=== PATIENT | male | born 1950 | race Caucasian/White ===

== ENCOUNTER 2019-05-17 16:15 | Emergency (ER) | payer MEDICARE, OTHER, SELFPAY ==
--- NOTE | ~2019-05-17 | CT_ITS ---
EXAMINATION: CT cervical spine wo con DATE: 05/17/2019 17:01 INDICATION: Neck pain after fall. TECHNIQUE: Computed tomography (CT) of the cervical spine was performed without intravenous contrast. The dose-length product was 476 mGy-cm. Automated exposure control and iterative reconstruction technique were employed. COMPARISON: None FINDINGS: There is fusion at C4-C6. There is degenerative anterolisthesis at C2-3 and C3-4. No acute fracture or traumatic malalignment. There is subcutaneous emphysema of the right chest wall extending into the neck. Odontoid process within normal limits. There is mild multilevel facet and uncinate hy pertrophy. There is a small right apical pneumothorax. There is a lytic lesion of the right occipital skull. Consider metastatic disease and myeloma. There is a right third rib fracture at the costovert ebral junction. IMPRESSION: 1. Right third rib fracture at the costovertebral junction. 2: Lytic lesion right occipital skull, suspicious for metastatic disease versus myeloma. 3: Moderate cervical spondylosis. 4: Small right apical pneumothorax. 5: Subcutaneous emphysema of the right chest wall extending into the neck. Reviewed, dictated and finalized at location A. UCTOR ORCHESTRA IMPRESSION: 1. Right third rib fracture at the costovertebral junction. 2: Lytic lesion right occipital skull, suspicious for metastatic disease versu s myeloma. 3: Moderate cervical spondylosis. 4: Small right apical pneumothorax. 5: Subcutaneous emphysema of the right chest wall extending into the neck.
--- NOTE | ~2019-05-17 | CT_ITS ---
EXAMINATION: CT chst ab pel sukhdeep gutierrez w DATE: 05/17/2019 17:02 INDICATION: Status post fall from ladder. TECHNIQUE: Computed tomography (CT) of the chest, abdomen, pelvis, thoracic and lumbar spine was perf ormed with 100 cc Omnipaque 350 intravenous contrast. The dose-length product was 892.89 mGy-cm. COMPARISON: CT dated 12/20/2018 FINDINGS: There is extensive subcutaneous emphysema of the right chest wall. There is a small right p neumothorax. There is atherosclerosis of the aorta without evidence for aneurysm or dissection. No th oracic lymphadenopathy. There is dependent atelectasis of the lower lobes. There are acute right seco nd and third rib fractures. Possible nondisplaced right fourth rib fracture. There is mild thoracic a nd lumbar spondylosis. There are acute displaced fractures of the right transverse processes of L1-L5 with probable associated hematoma involving the psoas muscle. There is diastases of the right sacroi liac joint. There are degenerative changes of the hips. The liver, spleen, pancreas, adrenal glands and kidneys are unremarkable. There are gallstones. Nonob structive bowel gas pattern. Enlarged prostate gland. No free air or free fluid. There is moderate mu ltilevel facet hypertrophy of the lumbar spine there is disc narrowing at all lumbar levels. No acute abnormality of the thoracic or lumbar spine.. IMPRESSION: 1. Acute right second and third rib fractures. Possible nondisplaced right fourth rib fracture. 2: Small right pneumothorax. Extensive subcutaneous emphysema right chest wall extending into the ne ck. 3: Acute displaced fractures of the right transverse processes of L1-L5 with associated enlargement/a symmetry of the right psoas muscle, likely attributable to intramuscular hematoma. 4: Diastases of the right sacroiliac joint. Reviewed, dictated and finalized at location A. AT SYSTEMS ENGINEER IMPRESSION: 1. Acute right second and third rib fractures. Possible nondisplaced right four th rib fracture. 2: Small right pneumothorax. Extensive subcutaneous emphysema right chest wall extending into the neck. 3: Acute displaced fractures of the right transverse processes of L1-L5 with as sociated enlargement/asymmetry of the right psoas muscle, likely attributable t o intramuscular hematoma. 4: Diastases of the right sacroiliac joint.
--- NOTE | ~2019-05-17 | CT_ITS ---
EXAMINATION: CT brain wo con DATE: 05/17/2019 17:00 INDICATION: Status post fall. Head injury. TECHNIQUE: Computed tomography (CT) of the head was performed without intravenous contrast. The dose- length product was 681.00 mGy-cm. The mA was adjusted according to patient size. Iterative reconstruc tion technique was employed. COMPARISON: CT dated 11/21/2017 FINDINGS: No acute intracranial hemorrhage, infarction, mass or mass effect. There are scattered mild periventricular and subcortical white matter changes, most likely related to small vessel ischemic d isease (microangiopathy). No depressed skull fractures. Paranasal sinuses and mastoids are unremarkab le. Midline sagittal images demonstrate a normal corpus callosum and craniovertebral junction. IMPRESSION: 1. No acute intracranial abnormality. Reviewed, dictated and finalized at location A. TICS FABRICATOR AND ASSEMBLER
--- NOTE | ~2019-05-17 | XR_ITS ---
XR chest 1V portable 05/17/2019 16:37 Indication: Right-sided chest pain after fall 2010 feet. Procedure: AP portable chest Comparison: 11/21/2017 Findings: There is a right second rib fracture. Heart size normal for technique. No focal air space d isease, pulmonary edema, pleural effusion or suspected pneumothorax. There is subcutaneous emphysema of the right chest wall. Impression: 1: Right second rib fracture with subcutaneous emphysema of the right chest. Reviewed, dictated and finalized at location A. USEMENT RIDE INSPECTOR Impression: 1: Right second rib fracture with subcutaneous emphysema of the right chest.
[2019-05-17 16:14] VITALS: BP 138/85; PULSE 88; RESP 24; TEMP 36.8; O2SAT 100
--- NOTE | 2019-05-17 16:16 | ED.FALL ---
HPI - Fall General Chief Complaint: Fall Stated Complaint: fall from ladder Time Seen by Provider: 05/17/19 16:19 Source: patient and EMS Mode of arrival: EMS Limitations: no limitations History of Present Illness HPI Narrative: A 68 y/o male pt presents to the ED, via EMS, with c/o a fall from a 10ft ladder. Pt states that he was on a ladder trimming his tree when a tree limb fell down and knocked him off the ladder, hitting his head, and landing on his back. EMS states that the pt landed on muddy grass. Pt is complaining of rt sided lower back pain and SOB in the ED, but denies any neck pain, ABD pain, or numbness or tingling to his extremities. MD complaint: fall Onset (ago): hour(s) Fall from: from height (distance) (10 ft ladder) Fall witnessed: yes, by family Place fall occurred: home Context: other (tree limb fell knocking him off the ladder) Location of injury: back (rt sided lower back) Associated symptoms (after fall): shortness of breath and other (rt sided lower back pain) Related Data Home Medications Medication Instructions Recorded Confirmed amlodipine 10 mg tablet 10 mg PO DAILY 03/28/19 clonazepam 1 mg tablet 1 mg PO DAILY 03/28/19 Allergies Allergy/AdvReac Type Severity Reaction Status Date / Time No Known Allergies Allergy Unknown Verified 05/17/19 16:22 No Known Allergies Allergy Unknown Unknown Uncoded 05/17/19 16:22 Review of Systems Review of Systems: All systems reviewed & are unremarkable except as noted in HPI and below Respiratory: Respiratory: Reports dyspnea Gastrointestinal: Gastrointestinal: Denies abdominal pain Musculoskeletal: Musculoskeletal: Reports back pain (rt sided lower), Denies neck pain, Denies numbness and Denies tingling PMFSH Past Medical History Medical History Hypertension Inflammatory arthritis Insomnia Kidney stones Left hip pain Low testosterone in male Surgical History Surgical History History of back surgery Social History Social History (Updated 05/17/19 @ 17:58 by [employer] [facility] [employer]) Smoking status: Never smoker Second hand tobacco smoke exposure: No Alcohol intake: current Substance use: current Substance use type: painkillers and prescription drug Living arrangements: with family Gender identity (if verbalized by the patient): Male Exam Const: General: cooperative, no acute distress and alert Nutritional Appearance: well nourished Orientation/consciousness: patient oriented x3 Limitations: no limitations HENMT: Mouth: Yes lip normal and Yes moist mucous membranes Chest: Chest palpation & inspection: tenderness rib right Resp: Effort & Inspection: normal respiratory effort Auscultation: crackles on the right at the base Cardio: Rate: regular rate Rhythm: regular rhythm GI: GI Palp: Yes Soft to palpation and No Tenderness to palpation present (GI) Auscultation: normal bowel sounds Back/Spine/Pelvis: Back: CVA tenderness (rt side) Skin: General skin exam: normal color Neuro: General: patient oriented x3 and deep tendon reflexes 2+ bilaterally Cognition (Neuro): normal cognition Speech: normal speech Extrem: General: normal to inspection, full ROM and no clubbing, cyanosis or edema Psych: Mental Status: mental status grossly normal Affect: normal affect Attitude: cooperative Course Course Emergency Course: Patient presents with fall from significant height while trimming a tree. Patient with 2, possibly 3 rib fractures on the right side with subcutaneous emphysema and very small pneumothorax. Patient's pneumothorax is too small to warrant placement of chest tube at this time. Patient is hemodynamically stable. Patient also presents with multiple lumbar transverse process fractures and possible psoas hematoma. No other intrathoracic or intra-abdominal pathology noted. Patient given IV acetam
[2019-05-17 16:51] LABS: Blood Urea Nitrogen 22 mg/dL (8-26); Estimated CRCL calculation 44 ml/min; Estimated Glomerular Filt Rate 43
[2019-05-17 17:43] VITALS: BP 123/73; PULSE 94; RESP 20; TEMP 36.7; O2SAT 99
[2019-05-17] MEDS: HYDROMORPHONE HCL 1 MG/ML INJ IV PUSH (18:33)
[2019-05-17 18:39] VITALS: BP 134/80; PULSE 80; RESP 20; TEMP 36.8; O2SAT 98
== END 2019-05-17 18:41 | disposition short-term general hospital (02) ==
PROVIDERS: Emergency Provider Emergency Medicine; PCP Family Medicine
DX: S22.41XA Multiple fractures of ribs, right side, initial encounter for closed fracture (principal); S27.0XXA Traumatic pneumothorax, initial encounter; T79.7XXA Traumatic subcutaneous emphysema, initial encounter; S32.018A Other fracture of first lumbar vertebra, initial encounter for closed fracture; S32.028A Other fracture of second lumbar vertebra, initial encounter for closed fracture; S32.038A Other fracture of third lumbar vertebra, initial encounter for closed fracture; S32.048A Other fracture of fourth lumbar vertebra, initial encounter for closed fracture; S32.058A Other fracture of fifth lumbar vertebra, initial encounter for closed fracture; T14.8XXA Other injury of unspecified body region, initial encounter; I10 Essential (primary) hypertension; Z87.442 Personal history of urinary calculi; M13.80 Other specified arthritis, unspecified site; M89.9 Disorder of bone, unspecified; W11.XXXA Fall on and from ladder, initial encounter; Y93.H2 Activity, gardening and landscaping
CPT/HCPCS: 70450; 71045; 71260; 72125; 72129; 72132; 74177; 96365; 96375; 96376; 99291; J0131; J1170; J3010; Q9967

== ENCOUNTER 2019-05-22 15:55 | IRF | payer MEDICARE, OTHER, SELFPAY ==
[2019-05-22 15:55] VITALS: BP 161/70; PULSE 84; RESP 18; TEMP 36.9; O2SAT 99; BMI 25.8
--- NOTE | 2019-05-22 16:22 | ADMGEN ---
This patient, Paul Dutton, was admitted to [facility] Room 220-02. Patient/family oriented to hospital policies and general routines including ID bracelet, bed and alarms, visiting hours, pain management, procedures, bathroom and other care routines, personal items, smoking policy, room service/diet, and visiting hours. Valuables list has been completed. Information on how to activate the Rapid Response Team has been discussed. Patient/Family are encouraged to report perceived risks to care and to ask questions if they do not understand what they are told or what they should do.
[2019-05-22] MEDS: DOXAZOSIN MESYLATE 4 MG TABLET 8 MG PO (20:03)
[2019-05-22] MEDS: SENNOSIDES 8.6 MG TABLET 17.2 MG PO (20:03)
[2019-05-22] MEDS: TRAZODONE HCL 50 MG TABLET PO (20:04)
[2019-05-22 22:00] VITALS: BP 172/46; PULSE 80; RESP 24; TEMP 37.6; O2SAT 100
[2019-05-22] MEDS: CYCLOBENZAPRINE HCL 5 MG TABLET PO (23:54)
[2019-05-23 04:51] LABS: Basophils Absolute Auto 0.1 K/mm3 (0.0-0.1); Basophils Percent Auto 0.7 % (0.2-1.2); Eosinophils Absolute Auto 0.3 K/mm3 (0-0.3); Eosinophils Percent Auto 2.4 % (0-4.4); Hematocrit 31.8 % (42.0-52.0); Hemoglobin 10.5 g/dL (14.0-18.0); Immature Granulocyte Absolute 0.53 K/mm3 (0.00-0.031); Immature Granulocyte Percent A 4.9 % (0-0.5); Lymphocytes Percent Auto 12.1 % (18.3-44.2); Mean Corpuscular Hemoglobin 29.1 pg (26-34); Mean Corpuscular Volume 88.1 fl (80-100); Mean Platelet Volume 10.3 fl (7.4-10.4); Monocytes Percent Auto 9.5 % (2.6-8.5); Neutrophils Absolute Auto 7.5 K/mm3 (1.3-6.7); Neutrophils Percent Auto 70.4 % (45.5-73.1); Platelet Count Result 359 k/mm3 (150-375); Red Blood Count 3.61 M/mm3 (4.6-6.20); Red Cell Distribution Width 12.3 % (11.5-14.5); White Blood Count 10.7 K/mm3 (4.5-10.0)
[2019-05-23 05:09] LABS: Blood Urea Nitrogen 21 mg/dL (9-20); Calcium 7.9 mg/dL (8.4-10.2); Carbon Dioxide 27 mmol/L (22-30); Chloride 101 mmol/L (98-107); Estimated CRCL calculation 70 ml/min; Estimated Glomerular Filt Rate > 60; Glucose 113 mg/dL (75-110); Potassium 3.6 mmol/L (3.4-5.0); Sodium 137 mmol/L (137-145)
[2019-05-23 06:00] VITALS: BP 151/64; PULSE 73; RESP 20; TEMP 37.4; O2SAT 96
[2019-05-23] MEDS: POTASSIUM/PHOSPHORUS/SODIUM 1.5 GM PACKET 2 PACKET PO ×3 (08:42→17:52)
[2019-05-23] MEDS: AMLODIPINE BESYLATE 5 MG TABLET 10 MG PO (08:42)
[2019-05-23] MEDS: LIDOCAINE 5% PATCH 2 PATCH TOPICAL (08:42)
[2019-05-23] MEDS: ENOXAPARIN 40 MG/0.4 ML SYRINGE SUB-Q (08:42)
[2019-05-23] MEDS: SENNOSIDES 8.6 MG TABLET 17.2 MG PO ×2 (08:43→20:05)
[2019-05-23 09:26] VITALS: BMI 25.8
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
[2019-05-23] MEDS: CYCLOBENZAPRINE HCL 5 MG TABLET PO (10:29)
[2019-05-23 14:00] VITALS: BP 153/83; PULSE 94; RESP 20; TEMP 37.4; O2SAT 97
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
[2019-05-23] MEDS: DOXAZOSIN MESYLATE 4 MG TABLET 8 MG PO (20:05)
[2019-05-23] MEDS: CLONAZEPAM 0.5 MG TAB 1 MG PO (20:06)
[2019-05-23] MEDS: TRAZODONE HCL 50 MG TABLET PO (20:06)
[2019-05-23 21:33] VITALS: BP 155/67; PULSE 79; RESP 20; TEMP 37.5; O2SAT 97
[2019-05-24 06:00] VITALS: BP 151/64; PULSE 74; RESP 20; TEMP 36.8; O2SAT 96
[2019-05-24] MEDS: SENNOSIDES 8.6 MG TABLET 17.2 MG PO ×2 (09:19→20:32)
[2019-05-24] MEDS: ENOXAPARIN 40 MG/0.4 ML SYRINGE SUB-Q (09:19)
[2019-05-24] MEDS: AMLODIPINE BESYLATE 5 MG TABLET 10 MG PO (09:20)
[2019-05-24] MEDS: LIDOCAINE 5% PATCH 2 PATCH TOPICAL (09:20)
[2019-05-24 14:00] VITALS: BP 152/65; PULSE 86; RESP 18; TEMP 36.7; O2SAT 98
[2019-05-24] MEDS: CLONAZEPAM 0.5 MG TAB 1 MG PO (20:31)
[2019-05-24] MEDS: DOXAZOSIN MESYLATE 4 MG TABLET 8 MG PO (20:32)
[2019-05-24] MEDS: TRAZODONE HCL 50 MG TABLET PO (20:32)
[2019-05-24 21:14] VITALS: BP 161/58; PULSE 75; RESP 16; TEMP 36.9; O2SAT 99
[2019-05-25 06:00] VITALS: BP 134/53; PULSE 72; RESP 16; TEMP 37.6; O2SAT 96
[2019-05-25 08:00] VITALS: PULSE 72; RESP 16; O2SAT 96
[2019-05-25] MEDS: ENOXAPARIN 40 MG/0.4 ML SYRINGE SUB-Q (08:59)
[2019-05-25] MEDS: AMLODIPINE BESYLATE 5 MG TABLET 10 MG PO (08:59)
[2019-05-25] MEDS: SENNOSIDES 8.6 MG TABLET 17.2 MG PO ×2 (08:59→20:51)
[2019-05-25] MEDS: BACITRACIN OINTMENT 15 GM TUBE 1 APPLIC TOPICAL ×2 (09:00→20:46)
[2019-05-25] MEDS: LIDOCAINE 5% PATCH 2 PATCH TOPICAL (09:00)
--- NOTE | 2019-05-25 13:33 | WPDNEURORHBP ---
Subjective Date/time seen: 05/25/19 13:33 Review of Systems Review of Systems: All systems reviewed & are unremarkable except as noted in HPI and below Functional Status Ambulation Ability Ability to Ambulate 10 Feet: Independent Ability to Ambulate 50 Feet With 2 Turns: Standby Assistance Ability to Ambulate 150 Feet: Standby Assistance Ambulation Assistive Devices: Walker, Wheeled Transfers Ability Ability to Transfer In/Out of Chair: Minimum Assistance X 1 Exam Const: General: cooperative, comfortable, no acute distress, well developed, alert, awake and Physically active Orientation/consciousness: patient oriented x3 Eyes: General: appearance normal, both eyes and all related structures Alignment and Position: alignment normal Eyelids: eyelids normal Conjunctivae: conjunctivae normal Sclera: sclerae normal Cornea: corneas normal Pupils: Equal, round and reactive pupils present EOM: EOMs intact bilaterally Chest: Chest palpation & inspection: normal inspection of the chest and normal palpation of entire chest wall Resp: Effort & Inspection: able to speak in complete sentences Auscultation: clear to auscultation bilaterally Cardio: Rate: regular rate Rhythm: regular rhythm GI: Auscultation: normal bowel sounds Skin: General skin exam: no rashes or lesions noted Neuro: General: patient oriented x3 and moves all extremities Cranial nerves: Yes CN's II-XII intact bilaterally, Yes Equal, round and reactive pupils present, Yes Bilaterally intact EOM present, Yes Nystagmus not present, Yes Normal facial strength present, Yes Midline tongue present, Yes Normal gag reflex present, Yes Symmetric palate elevation present and Yes Ability to bilaterally elevate shoulders present Cognition (Neuro): normal cognition (questionabout recent events) Speech: normal speech Motor exam (neuro): 5/5 motor strength present throughout (4.5/5) Deep tendon reflexes (DTR's): Right triceps reflex intensity grade: 1+, Left triceps reflex intensity grade: 1+, Rt Biceps (C5, C6): 1+, Left biceps reflex intensity grade: 1+, Right brachioradialis reflex intensity grade: 1+, Left brachioradialis reflex intensity grade: 1+, Right patellar reflex intensity grade: 1+, Left patellar reflex intensity grade: 1+, Right ankle reflex intensity grade: 1+ and Left ankle reflex intensity grade: 1+ Plantar Reflex Responses: downgoing: bilateral Coordination: [id number] test normal Psych: Appearance: grossly normal Objective Data Vital Signs Vital Signs: Vital Signs - 24 hr 05/24/19 14:00 05/24/19 21:14 05/25/19 06:00 Temperature 36.7 C 36.9 C 37.6 C H Pulse Rate 86 75 72 Respiratory Rate 18 16 16 Blood Pressure 152/65 H 161/58 H 134/53 L Pulse Oximetry 98 99 96 05/25/19 08:00 Temperature Pulse Rate 72 Respiratory Rate 16 Blood Pressure Pulse Oximetry 96 Intake/Output Intake/Output: Intake & Output 05/22/19 05/23/19 05/24/19 05/25/19 23:59 23:59 23:59 23:59 Intake Total 1440 740 340 Balance 1440 740 340 Meds/Results Medications: Active Medications Generic Name Dose Route Start Last Admin Trade Name Freq PRN Reason Stop Dose Admin Acetaminophen 1,000 mg 05/22/19 18:05 Tylenol Tablet PO Q6H PRN Pain, Mild Amlodipine Besylate 10 mg 05/23/19 09:00 05/25/19 08:59 Norvasc PO 10 mg DAILY MARISOL Administration Bacitracin 1 applic 05/25/19 09:00 05/25/19 09:00 Bacitracin Oint 15 Gm TOPICAL 1 applic Q12HR MARISOL Administration Clonazepam 1 mg 05/23/19 21:00 05/24/19 20:31 Klonopin Tablet PO 1 mg HS MARISOL Administration Cyclobenzaprine HCl 5 mg 05/22/19 18:05 05/23/19 10:29 Flexeril PO 5 mg TID PRN Administration Muscle Spasm Doxazosin Mesylate 8 mg 05/22/19 21:00 05/24/19 20:32 Cardura PO 8 mg HS MARISOL Administration Enoxaparin Sodium 40 mg 05/23/19 09:00 05/25/19 08:59 Lovenox SUB-Q 40 mg DAILY MARISOL Administration Lidocaine 2 patch 05/23
[2019-05-25 14:31] VITALS: BP 135/55; PULSE 83; RESP 20; TEMP 37.5; O2SAT 96
[2019-05-25] MEDS: CLONAZEPAM 0.5 MG TAB 1 MG PO (20:49)
[2019-05-25] MEDS: DOXAZOSIN MESYLATE 4 MG TABLET 8 MG PO (20:51)
[2019-05-25] MEDS: TRAZODONE HCL 50 MG TABLET PO (20:52)
[2019-05-25 22:00] VITALS: BP 149/71; PULSE 76; RESP 18; TEMP 37.6; O2SAT 97
[2019-05-26 06:00] VITALS: BP 146/71; PULSE 79; RESP 18; TEMP 37; O2SAT 98
[2019-05-26] MEDS: SENNOSIDES 8.6 MG TABLET 17.2 MG PO ×2 (09:02→20:03)
[2019-05-26] MEDS: ENOXAPARIN 40 MG/0.4 ML SYRINGE SUB-Q (09:02)
[2019-05-26] MEDS: AMLODIPINE BESYLATE 5 MG TABLET 10 MG PO (09:02)
[2019-05-26] MEDS: BACITRACIN OINTMENT 15 GM TUBE 1 APPLIC TOPICAL ×2 (09:02→20:01)
[2019-05-26] MEDS: LIDOCAINE 5% PATCH 2 PATCH TOPICAL (09:02)
[2019-05-26] MEDS: CYCLOBENZAPRINE HCL 5 MG TABLET PO (10:39)
[2019-05-26 14:00] VITALS: BP 134/63; PULSE 81; RESP 18; TEMP 36.8; O2SAT 96
[2019-05-26] MEDS: ACETAMINOPHEN 500 MG TABLET 1000 MG PO (15:22)
[2019-05-26] MEDS: CLONAZEPAM 0.5 MG TAB 1 MG PO (20:01)
[2019-05-26] MEDS: DOXAZOSIN MESYLATE 4 MG TABLET 8 MG PO (20:02)
[2019-05-26] MEDS: TRAZODONE HCL 50 MG TABLET PO (20:03)
[2019-05-26 22:00] VITALS: BP 132/51; PULSE 68; RESP 18; TEMP 37.6; O2SAT 96
[2019-05-27 06:00] VITALS: BP 117/70; PULSE 72; RESP 17; TEMP 36.9; O2SAT 96
[2019-05-27] MEDS: AMLODIPINE BESYLATE 5 MG TABLET 10 MG PO (07:49)
[2019-05-27] MEDS: BACITRACIN OINTMENT 15 GM TUBE 1 APPLIC TOPICAL ×2 (07:50→20:20)
[2019-05-27] MEDS: ENOXAPARIN 40 MG/0.4 ML SYRINGE SUB-Q (07:50)
[2019-05-27] MEDS: LIDOCAINE 5% PATCH 2 PATCH TOPICAL (07:50)
[2019-05-27] MEDS: SENNOSIDES 8.6 MG TABLET 17.2 MG PO ×2 (07:50→20:20)
[2019-05-27 08:00] VITALS: PULSE 72; RESP 17; O2SAT 96
--- NOTE | 2019-05-27 08:19 | PCPTNOTE ---
Paul Dutton was evaluated for a wheeled walker on 05/27/2019 by this physical therapist recreational assistant. The wheeled walker will resolve patient's mobility limitations and will be used for ADL's within the home. The patient can safely use the wheeled walker. ?The wheeled walker will resolve the patient?s mobility deficits, including limited right lower extremity weight bearing, decreased endurance and strength.
[2019-05-27 08:53] VITALS: TEMP 36.9
[2019-05-27] MEDS: CYCLOBENZAPRINE HCL 5 MG TABLET PO (11:07)
[2019-05-27 14:00] VITALS: BP 147/68; PULSE 96; RESP 18; TEMP 36.8; O2SAT 100
--- NOTE | 2019-05-27 14:23 | WPDNEURORHBP ---
Subjective Date/time seen: 05/27/19 14:23 Interval history: this 68-year-old gentleman is here because of multiple trauma and the primary issue is the pelvic fracture status post surgery on which side he is toe-touch weight-bearing on the left side he is weight-bearing as tolerated his pain is under control however is still it is difficult for him to use the right lower extremity because of the weight-bearing status He denies any fever chills sore throat headache nausea vomiting abdominal pain or bladder or bowel dysfunction Review of Systems Review of Systems: All systems reviewed & are unremarkable except as noted in HPI and below Functional Status Ambulation Ability Ability to Ambulate 10 Feet: Independent Ability to Ambulate 50 Feet With 2 Turns: Standby Assistance Ability to Ambulate 150 Feet: Standby Assistance Ambulation Assistive Devices: Walker, Wheeled Transfers Ability Ability to Transfer In/Out of Chair: Independent Exam Const: General: comfortable and no acute distress HENMT: General nose exam: Normal nares present Mouth: Yes moist mucous membranes Eyes: General: appearance normal, both eyes and all related structures Neck: Neck: supple and no JVD Resp: Effort & Inspection: normal respiratory effort Auscultation: clear to auscultation bilaterally Cardio: Rate: regular rate Rhythm: regular rhythm GI: GI Palp: Yes Soft to palpation Auscultation: normal bowel sounds Skin: General skin exam: normal color and no rashes or lesions noted Neuro: Other: patient's mental status is normal cranial exam is normal upper extremity strength is decent lower extremity strength is compromised because not only of the right pelvic fracture post surgery but also chronic left hip pain but overall he is improving and doing fairly well Extrem: General: normal to inspection Psych: Mental Status: mental status grossly normal Objective Data Vital Signs Vital Signs: Vital Signs - 24 hr 05/26/19 22:00 05/27/19 06:00 05/27/19 08:00 Temperature 37.6 C H 36.9 C Pulse Rate 68 72 72 Respiratory Rate 18 17 17 Blood Pressure 132/51 L 117/70 Pulse Oximetry 96 96 96 05/27/19 08:53 Temperature 36.9 C Pulse Rate Respiratory Rate Blood Pressure Pulse Oximetry Intake/Output Intake/Output: Intake & Output 05/24/19 05/25/19 05/26/19 05/27/19 23:59 23:59 23:59 23:59 Intake Total 740 1020 740 240 Balance 740 1020 740 240 Meds/Results Medications: Active Medications Generic Name Dose Route Start Last Admin Trade Name Freq PRN Reason Stop Dose Admin Acetaminophen 1,000 mg 05/22/19 18:05 05/26/19 15:22 Tylenol Tablet PO 1,000 mg Q6H PRN Administration Pain, Mild Amlodipine Besylate 10 mg 05/23/19 09:00 05/27/19 07:49 Norvasc PO 10 mg DAILY MARISOL Administration Bacitracin 1 applic 05/25/19 09:00 05/27/19 07:50 Bacitracin Oint 15 Gm TOPICAL 1 applic Q12HR MARISOL Administration Clonazepam 1 mg 05/23/19 21:00 05/26/19 20:01 Klonopin Tablet PO 1 mg HS MARISOL Administration Cyclobenzaprine HCl 5 mg 05/22/19 18:05 05/27/19 11:07 Flexeril PO 5 mg TID PRN Administration Muscle Spasm Doxazosin Mesylate 8 mg 05/22/19 21:00 05/26/19 20:02 Cardura PO 8 mg HS MARISOL Administration Enoxaparin Sodium 40 mg 05/23/19 09:00 05/27/19 07:50 Lovenox SUB-Q 40 mg DAILY MARISOL Administration Lidocaine 2 patch 05/23/19 09:00 05/27/19 07:50 Lidoderm TOPICAL 2 patch DAILY MARISOL Administration Oxycodone HCl 5 mg 05/22/19 18:05 05/27/19 07:53 Roxicodone Ir Tablet PO 5 mg Q6H PRN Administration Pain, Moderate Senna 17.2 mg 05/22/19 21:00 05/27/19 07:50 Senokot Tablet PO 17.2 mg Q12HR MARISOL Administration Trazodone HCl 50 mg 05/22/19 21:00 05/26/19 20:03 Desyrel PO 50 mg HS MARISOL Administration Progress Note: A&P Assessment and Plan (1) Status post fall: Code(s): Z91.81 - History of falling
--- NOTE | 2019-05-27 15:54 | PCCCNOTE ---
On 05/27/19, the student, [Billy Osman ], provided care and completed [facility] documentation on this patient. I have reviewed the student's documentation and agree with the findings.
[2019-05-27] MEDS: CLONAZEPAM 0.5 MG TAB 1 MG PO (20:19)
[2019-05-27] MEDS: DOXAZOSIN MESYLATE 4 MG TABLET 8 MG PO (20:20)
[2019-05-27] MEDS: TRAZODONE HCL 50 MG TABLET PO (20:20)
[2019-05-27 21:14] VITALS: BP 149/65; PULSE 79; RESP 20; TEMP 37.3; O2SAT 96
[2019-05-28 06:00] VITALS: BP 136/56; PULSE 68; RESP 20; TEMP 37.2; O2SAT 100
[2019-05-28 08:00] VITALS: PULSE 68; RESP 20; O2SAT 100
--- NOTE | 2019-05-28 08:44 | WPDNEURORHBP ---
Subjective Date/time seen: 05/28/19 08:44 Interval history: this 68-year-old gentleman is here primarily because of having had pelvic fracture and had surgery for it he has achieved almost the goals of over rehab does not have any specific complaints he will need the pain medication and also other medications which I have done he denies any headache fever chills sore throat nausea vomiting abdominal pain diarrhea or fevers Review of Systems Review of Systems: All systems reviewed & are unremarkable except as noted in HPI and below Functional Status Ambulation Ability Ability to Ambulate 10 Feet: Independent Ability to Ambulate 50 Feet With 2 Turns: Standby Assistance Ability to Ambulate 150 Feet: Standby Assistance Ambulation Assistive Devices: Walker, Wheeled Transfers Ability Ability to Transfer In/Out of Chair: Independent Exam Const: General: comfortable and no acute distress HENMT: General nose exam: Normal nares present Mouth: Yes moist mucous membranes Eyes: General: appearance normal, both eyes and all related structures Neck: Neck: supple and no JVD Resp: Effort & Inspection: normal respiratory effort Auscultation: clear to auscultation bilaterally Cardio: Rate: regular rate Rhythm: regular rhythm GI: GI Palp: Yes Soft to palpation Auscultation: normal bowel sounds Skin: General skin exam: normal color and no rashes or lesions noted Neuro: Other: patient's mental status is normal cranial nerve examination is normal his strength has improved the handicap is the toe-touch bearing the status of the right lower extremity due to pelvic fracture which also he has improved overall Extrem: General: normal to inspection Psych: Mental Status: mental status grossly normal Objective Data Vital Signs Vital Signs: Vital Signs - 24 hr 05/27/19 08:53 05/27/19 14:00 05/27/19 21:14 Temperature 36.9 C 36.8 C 37.3 C Pulse Rate 96 79 Respiratory Rate 18 20 Blood Pressure 147/68 H 149/65 H Pulse Oximetry 100 96 05/28/19 06:00 Temperature 37.2 C Pulse Rate 68 Respiratory Rate 20 Blood Pressure 136/56 L Pulse Oximetry 100 Intake/Output Intake/Output: Intake & Output 05/25/19 05/26/19 05/27/19 05/28/19 23:59 23:59 23:59 23:59 Intake Total 1020 740 480 Balance 1020 740 480 Meds/Results Medications: Active Medications Generic Name Dose Route Start Last Admin Trade Name Freq PRN Reason Stop Dose Admin Acetaminophen 1,000 mg 05/22/19 18:05 05/26/19 15:22 Tylenol Tablet PO 1,000 mg Q6H PRN Administration Pain, Mild Amlodipine Besylate 10 mg 05/23/19 09:00 05/27/19 07:49 Norvasc PO 10 mg DAILY MARISOL Administration Bacitracin 1 applic 05/25/19 09:00 05/27/19 20:20 Bacitracin Oint 15 Gm TOPICAL 1 applic Q12HR MARISOL Administration Clonazepam 1 mg 05/23/19 21:00 05/27/19 20:19 Klonopin Tablet PO 1 mg HS MARISOL Administration Cyclobenzaprine HCl 5 mg 05/22/19 18:05 05/27/19 11:07 Flexeril PO 5 mg TID PRN Administration Muscle Spasm Doxazosin Mesylate 8 mg 05/22/19 21:00 05/27/19 20:20 Cardura PO 8 mg HS MARISOL Administration Enoxaparin Sodium 40 mg 05/23/19 09:00 05/27/19 07:50 Lovenox SUB-Q 40 mg DAILY MARISOL Administration Lidocaine 2 patch 05/23/19 09:00 05/27/19 07:50 Lidoderm TOPICAL 2 patch DAILY MARISOL Administration Oxycodone HCl 5 mg 05/22/19 18:05 05/27/19 20:22 Roxicodone Ir Tablet PO 5 mg Q6H PRN Administration Pain, Moderate Senna 17.2 mg 05/22/19 21:00 05/27/19 20:20 Senokot Tablet PO 17.2 mg Q12HR MARISOL Administration Trazodone HCl 50 mg 05/22/19 21:00 05/27/19 20:20 Desyrel PO 50 mg HS MARISOL Administration Progress Note: A&P Assessment and Plan (1) Status post fall: Code(s): Z91.81 - History of falling Status: Acute (2) Multiple injuries: Code(s): T07.XXXA - Unspecified multiple injuries, initial encounter Status
[2019-05-28] MEDS: BACITRACIN OINTMENT 15 GM TUBE 1 APPLIC TOPICAL ×2 (09:00→20:11)
[2019-05-28] MEDS: ENOXAPARIN 40 MG/0.4 ML SYRINGE SUB-Q (09:00)
[2019-05-28] MEDS: AMLODIPINE BESYLATE 5 MG TABLET 10 MG PO (09:00)
[2019-05-28] MEDS: SENNOSIDES 8.6 MG TABLET 17.2 MG PO ×2 (09:01→20:11)
--- NOTE | 2019-05-28 09:03 | PCPTNOTE ---
[facility] [employer] recommends transport wheelchair for patient upon discharge.
--- NOTE | 2019-05-28 09:20 | PC.NURSE ---
/Went over Lovenox injections with [facility] and patient gave his own injection this a.m.
[2019-05-28 14:00] VITALS: BP 141/62; PULSE 86; RESP 20; TEMP 37.2; O2SAT 98
[2019-05-28] MEDS: DOXAZOSIN MESYLATE 4 MG TABLET 8 MG PO (20:10)
[2019-05-28] MEDS: TRAZODONE HCL 50 MG TABLET PO (20:10)
[2019-05-28] MEDS: CLONAZEPAM 0.5 MG TAB 1 MG PO (20:10)
[2019-05-28 21:47] VITALS: BP 145/61; PULSE 82; RESP 20; TEMP 37.2; O2SAT 97
[2019-05-29 06:00] VITALS: BP 129/65; PULSE 75; RESP 20; TEMP 37.1; O2SAT 96
[2019-05-29] MEDS: ENOXAPARIN 40 MG/0.4 ML SYRINGE SUB-Q (09:04)
[2019-05-29] MEDS: AMLODIPINE BESYLATE 5 MG TABLET 10 MG PO (09:04)
[2019-05-29] MEDS: BACITRACIN OINTMENT 15 GM TUBE 1 APPLIC TOPICAL (09:07)
--- NOTE | 2019-06-01 12:36 | PM.DS ---
DS: Diagnosis Admitting Diagnosis Admitting Diagnosis: Other fracture of first lumbar vertebra, initial encounter for closed fracture Discharge Diagnosis (1) Status post fall: Code(s): Z91.81 - History of falling Status: Acute (2) Multiple injuries: Code(s): T07.XXXA - Unspecified multiple injuries, initial encounter Status: Acute (3) Ribs, multiple fractures: Code(s): S22.49XA - Multiple fractures of ribs, unspecified side, initial encounter for closed fracture Status: Acute (4) Multiple transverse process fractures: Status: Acute (5) Pelvic fracture: Code(s): S32.9XXA - Fracture of unspecified parts of lumbosacral spine and pelvis, initial encounter for closed fracture Status: Acute (6) Inflammatory arthritis: Code(s): M19.90 - Unspecified osteoarthritis, unspecified site Status: Acute (7) Insomnia: Code(s): G47.00 - Insomnia, unspecified Status: Acute (8) Hypertension: Code(s): I10 - Essential (primary) hypertension Status: Acute (9) Low testosterone in male: Code(s): R79.89 - Other specified abnormal findings of blood chemistry Status: Acute (10) Left hip pain: Code(s): M25.552 - Pain in left hip Status: Acute DS: Summary Hospital Course Reason for hospitalization: this 68-year-old gentleman was admitted after having her trauma after a fall and had multiple injuries primarily of the pelvis which needed the surgery the details are available in my history and physical examination next The other comorbidities have been mentioned in the above mentioned discharge diagn Hospital Course: osis The patient's course was significant improvement overall is overall functionally within the independent measure our admitting functional a Mitten measures and goals are in available in my H and P Patient at the time of discharge was Eating independent, oral hygiene independent, toileting independent, bathing independent, upper body dressing independent, lower body dressing independent, foot where independent, rolling in bed independent, sitting to lying independent, lying to sitting independently, sit to stand independent, chair transfers independent, chronic transfers independent, car transfers independent, walking 10 feet independent, walking 50 feet fit to turns supervision walking 150 feet patient was unable to walking 10 feet uneven surfaces independent, occur were step supervision for steps patient unable to to 12 steps patient unable to do making about object independent wheelchair 50 feet independent wheelchair and 50 feet independent Patient with discharge with home health no falls were recorded Status at Discharge Cognitive/behavioral status at discharge: patient was mentally alert will orient to time place and person is speech and language functions are normal Time Spent with Patient Time attestation: Total time spent providing and/or coordinating discharge services: Exam Const: General: comfortable and no acute distress HENMT: General nose exam: Normal nares present Mouth: Yes dry mucous membranes Eyes: General: appearance normal, both eyes and all related structures Neck: Neck: supple and no JVD Resp: Effort & Inspection: normal respiratory effort Auscultation: clear to auscultation bilaterally Cardio: Rate: regular rate Rhythm: regular rhythm GI: GI Palp: Yes Soft to palpation Auscultation: normal bowel sounds Skin: General skin exam: normal color and no rashes or lesions noted Neuro: Other: patient remains mentally alert well oriented to time place and person normal cranial nerve examination the only trouble is that he is weight-bearing limitation because of the pelvic fracture and the surgery following it Extrem: General: normal to inspection Psych: Mental Status: mental status grossly normal DS: Data Data Completed and Pending Completed studies during hospitalization: on May 23, 2019
== END 2019-05-29 11:00 | disposition home health service (06) | DRG 561 ==
PROVIDERS: Admitting Provider Psychiatry & Neurology Neurology; PCP Family Medicine; Visit Provider Psychiatry & Neurology Neurology
DX: S32.018D Other fracture of first lumbar vertebra, subsequent encounter for fracture with routine healing (principal); S22.41XD Multiple fractures of ribs, right side, subsequent encounter for fracture with routine healing; S27.1XXD Traumatic hemothorax, subsequent encounter; S27.6 Injury of pleura; S32.028D Other fracture of second lumbar vertebra, subsequent encounter for fracture with routine healing; S32.038D Other fracture of third lumbar vertebra, subsequent encounter for fracture with routine healing; S32.048D Other fracture of fourth lumbar vertebra, subsequent encounter for fracture with routine healing; S32.058D Other fracture of fifth lumbar vertebra, subsequent encounter for fracture with routine healing; S00-T88 Injury, poisoning and certain other consequences of external causes; S01.01XD Laceration without foreign body of scalp, subsequent encounter; S30.0XXD Contusion of lower back and pelvis, subsequent encounter; D72.829 Elevated white blood cell count, unspecified; G89.29 Other chronic pain; G47.00 Insomnia, unspecified; I10 Essential (primary) hypertension; M19.90 Unspecified osteoarthritis, unspecified site; W11.XXXD Fall on and from ladder, subsequent encounter
CPT/HCPCS: 36415; 80048; 85025; 87081; 97110; 97116; 97150; 97162; 97165; 97530; 97535; 97542; A9270; J1650

== ENCOUNTER 2020-10-13 06:38 | Outpatient (CLI) | payer MEDICARE, OTHER, SELFPAY ==
--- NOTE | ~2020-10-13 | MR_ITS ---
EXAMINATION: MR hip LT wo con DATE: 10/13/2020 07:56 INDICATION: Chronic left hip pain TECHNIQUE: Magnetic resonance imaging (MRI) of the left hip was performed without intravenous contra st. Sequences included full-field axial fluid sensitive FSE STIR and T1-weighted FSE, coronal of the pelvis with T1-weighted FSE, T2-weighted FSE and fluid sensitive FSE STIR , small field of view of t he left hip with axial PD-weighted FS FSE, sagittal PD-weighted FS FSE, coronal T2-weighted FSE and coronal PD weighted FS FSE. Additional radial T1-weighted FGR oriented orthogonal to the acetabular rim were obtained for evaluation of the labrum. COMPARISON: CT dated 12/20/2018 FINDINGS: Bones/labrum/cartilage: Alignment is normal. Metallic magnetic field artifact associated with fixation screws spanning the ri ght sacroiliac joint with reduction of the diastases seen on CT dated 05/17/2019. 2 of the screws cont inue across the sacrum to span the left sacroiliac joint. Additional magnetic caruso artifact in the region of the bilateral pubic bodies likely for fixation of an additional prior diastases of the pubi c symphysis. No fracture, avascular necrosis or pathologic marrow replacing process. Again seen is mi ld osteoarthritis of the left hip with small marginal osteophytes along the base of the normal-appear ing labrum and mild nonuniform partial thickness cartilage loss. Moderate lumbar spondylosis. Fluid: Symmetric physiologic amount of fluid within both hip joints. Soft tissues: Normal and symmetric muscle bulk and signal in the pelvis and visualized proximal thighs. The iliopso as and proximal hamstring tendons are normal. Mild left gluteus minimus bursitis with moderate insert ional tendinosis without discrete tear. The remainder of the gluteal tendons are normal. Prostatomega ly. Limited evaluation of visceral organs of the pelvis is otherwise unremarkable. No pathologically enlarged pelvic/inguinal lymphadenopathy. IMPRESSION: 1. Mild left hip osteoarthritis. No acute osseous abnormality. 2. Mild left gluteus minimus bursitis and moderate gluteus minimus tendinopathy without discrete tear . 3. Internal fixation for correction of prior pubic symphysis and right sacroiliac diastases which has been reduced to essentially anatomic alignment. 4. Prostatomegaly. Reviewed, dictated and finalized at location A. IMPRESSION: 1. Mild left hip osteoarthritis. No acute osseous abnormality. 2. Mild left gluteus minimus bursitis and moderate gluteus minimus tendinopathy without discrete tear. 3. Internal fixation for correction of prior pubic symphysis and right sacroili ac diastases which has been reduced to essentially anatomic alignment. 4. Prostatomegaly.
== END 2020-10-13 06:39 | disposition home or self-care (01) ==
PROVIDERS: PCP Internal Medicine; Visit Provider Orthopaedic Surgery
DX: S76.302A Unspecified injury of muscle, fascia and tendon of the posterior muscle group at thigh level, left thigh, initial encounter (principal); M16.12 Unilateral primary osteoarthritis, left hip; N40.0 Benign prostatic hyperplasia without lower urinary tract symptoms
CPT/HCPCS: 73721

== ENCOUNTER 2021-05-23 12:32 | Outpatient (CLI) | payer MEDICARE, OTHER, SELFPAY ==
[2021-05-23 12:55] LABS: Basophils Absolute Auto 0.1 K/mm3 (0.0-0.1); Basophils Percent Auto 0.8 % (0.2-1.2); Eosinophils Absolute Auto 0.1 K/mm3 (0-0.3); Eosinophils Percent Auto 0.8 % (0-4.4); Hematocrit 48.3 % (42.0-52.0); Hemoglobin 15.9 g/dL (14.0-18.0); Immature Granulocyte Absolute 0.22 K/mm3 (0.00-0.031); Immature Granulocyte Percent A 2.3 % (0-0.5); Lymphocytes Absolute Auto 1.74 K/mm3 (0.9-3.2); Mean Corpuscular HGB Conc 32.9 g/dl (32-36); Mean Corpuscular Hemoglobin 29.4 pg (26-34); Mean Corpuscular Volume 89.3 fl (80-100); Mean Platelet Volume 9.7 fl (7.4-10.4); Monocytes Absolute Auto 0.7 K/mm3 (0.1-0.6); Monocytes Percent Auto 7.1 % (2.6-8.5); Neutrophils Absolute Auto 6.9 K/mm3 (1.3-6.7); Platelet Count Result 487 k/mm3 (150-375); Red Blood Count 5.41 M/mm3 (4.6-6.20); White Blood Count 9.7 K/mm3 (4.5-10.0)
== END 2021-05-23 12:33 | disposition home or self-care (01) ==
LOC: ANHLAB 12:35
PROVIDERS: PCP Internal Medicine; Visit Provider Internal Medicine
DX: D75.839 Thrombocytosis, unspecified (principal)
CPT/HCPCS: 36415; 85025

== ENCOUNTER 2021-08-01 17:20 | Inpatient (IN) | payer MEDICARE, SELFPAY ==
[2021-08-01] VITALS (11 sets, daily range): BP systolic 153–175; BP diastolic 74–89; PULSE 44–70; RESP 11–21; TEMP 36.7–36.8; O2SAT 97–100; BMI 23.1
--- NOTE | ~2021-08-01 | CT_ITS ---
EXAMINATION: CT brain wo con DATE: 08/02/2021 13:49 INDICATION: confusion TECHNIQUE: Computed tomography (CT) of the head was performed without intravenous contrast. The mA wa s adjusted according to patient size. Iterative reconstruction technique was employed. The dose-lengt h product was 605.33 mGy-cm. COMPARISON: 05/17/2019 FINDINGS: No acute intracranial hemorrhage or extra-axial fluid collection. No hydrocephalus, mass, or herniation. No acute ischemic infarct. Unremarkable dural venous sinus attenuation. No acute osseous abnormality. The aerated spaces are clear. Mild chronic white matter change. Mild intracranial arterial calcification. Mild bilateral basal gang luna calcification. IMPRESSION: No acute intracranial process. Reviewed, dictated and finalized at location K.
--- NOTE | ~2021-08-01 | XR_ITS ---
EXAMINATION: XR chest 2V Exam Date/Time: 08/01/2021 17:30 CDT CLINICAL HISTORY: CHEST PRESSURE INTO UPPER ARMS,SOB,DIZZY,SINCE 07/30/21 Comparison: 05/17/2019. RESULT: Lines, tubes, and devices: None. Lungs and pleura: Clear. Cardiomediastinal silhouette: Stable cardiomediastinal silhouette. Other: No acute osseous or upper abdominal finding. IMPRESSION: No acute cardiopulmonary process Reviewed, dictated and finalized at location K.
--- NOTE | 2021-08-01 17:24 | ECG_ITS ---
Measurements Intervals [place] Rate: 58 P: 43 WI: 157 QRS: -8 QRSD: 101 T: 39 QT: 403 QTc: 397 Interpretive Statements SINUS BRADYCARDIA BASELINE ARTIFACT- I, II, III, AVR, AVL, AVF, V1-V2, V6 BORDERLINE ECG Electronically Signed On 08-01-2021 20:13:59 CDT by Shreyas Russell D.O.
[2021-08-01 17:47] LABS: Basophils Percent Auto 0.4 % (0.2-1.2); Eosinophils Absolute Auto 0.1 K/mm3 (0-0.3); Eosinophils Percent Auto 1.4 % (0-4.4); Hematocrit 44.8 % (42.0-52.0); Immature Granulocyte Absolute 0.07 K/mm3 (0.00-0.031); Immature Granulocyte Percent A 0.7 % (0-0.5); Lymphocytes Absolute Auto 1.72 K/mm3 (0.9-3.2); Lymphocytes Percent Auto 16.8 % (18.3-44.2); Mean Corpuscular HGB Conc 33.5 g/dl (32-36); Mean Corpuscular Hemoglobin 28.5 pg (26-34); Mean Platelet Volume 9.3 fl (7.4-10.4); Monocytes Absolute Auto 0.8 K/mm3 (0.1-0.6); Monocytes Percent Auto 7.6 % (2.6-8.5); Neutrophils Absolute Auto 7.5 K/mm3 (1.3-6.7); Neutrophils Percent Auto 73.1 % (45.5-73.1); Platelet Count Result 598 k/mm3 (150-375); Red Blood Count 5.27 M/mm3 (4.6-6.20); Red Cell Distribution Width 11.2 % (11.5-14.5); White Blood Count 10.3 K/mm3 (4.5-10.0)
[2021-08-01 18:01] LABS: Alanine Aminotransferase 19 U/L (6-50); Albumin Level 4.1 g/dL (3.5-5.1); Alkaline Phosphatase 61 U/L (38-126); Anion Gap 7 mmol/L (8-16); Aspartate Amino Transferase 25 U/L (17-59); Bilirubin,Total 1.4 mg/dL (0.2-1.3); Blood Urea Nitrogen 20 mg/dL (9-20); Calcium 8.8 mg/dL (8.4-10.2); Carbon Dioxide 25 mmol/L (22-30); Chloride 105 mmol/L (98-107); Estimated CRCL calculation 58 ml/min; Estimated Glomerular Filt Rate 60; Glucose 94 mg/dL (65-110); Lipase 177 U/L (23-300); Sodium 137 mmol/L (137-145)
[2021-08-01 18:06] LABS: INR 1.2; Prothrombin Time 14.5 Seconds (11.1-14.7)
[2021-08-01 18:07] LABS: Partial Thromboplastin Time 31.8 SECONDS (22.3-36.8)
[2021-08-01 18:13] LABS: Troponin I < 0.012 ng/mL (0.000-0.034)
--- NOTE | 2021-08-01 19:11 | PC.NURSE ---
BSSR from Lorin THAKKAR
--- NOTE | 2021-08-01 19:17 | ED.CHESTPAIN ---
HPI - Chest Pain General Chief Complaint: Chest Pain Stated Complaint: chest pain Time Seen by Provider: 08/01/21 18:30 History of Present Illness HPI narrative: For the past week, patient has been having crushing chest pain on exertion or when he stands, to the point where he can only brush his teeth when he sits down, and feeling like he is get a pass out, patient has never had any cardiac history or work-up in the past. No chest pain currently while he was at rest. No diaphoresis, nausea or vomiting, no recent illnesses. He and his state that he has been getting adjustments of his high blood pressure medication and depression medication recently. Related Data Home Medications Medication Instructions Recorded Confirmed escitalopram oxalate 10 mg tablet 10 mg PO QHS tablet 07/25/21 hydroxyzine HCl 25 mg tablet 50 mg PO QID tablet 07/25/21 quetiapine 100 mg tablet 100 mg PO QHS 07/25/21 aspirin [Aspir-81] 81 mg 08/01/21 clonazepam [Klonopin] 1 mg PO HS 08/01/21 duloxetine 30 mg PO DAILY 08/01/21 tramadol 50 mg BID 08/01/21 Allergies Allergy/AdvReac Type Severity Reaction Status Date / Time ketamine Allergy Hallucinati Verified 08/01/21 17:31 ons pregabalin [From Lyrica] AdvReac Severe Suicidal Verified 08/01/21 17:31 Ideations Review of Systems Review of Systems: All systems reviewed & are unremarkable except as noted in HPI and below PMFSH Past Medical History Medical History Basal cell carcinoma (~2015) Chest pain Family history of punctured lung Hypertension Inflammatory arthritis Insomnia Ischial bursitis of left side Kidney stones Left hip pain Left temporomandibular joint disorder, unspecified Long-term current use of testosterone cypionate Low testosterone in male Pelvic avulsion fracture 04/2019 Surgical History Surgical History H/O endoscopy (~2016) H/O neck surgery (~1994) H/O plastic surgery (~2016) History of back surgery (~2010) History of carpal tunnel surgery (~1993) Hx of decompressive lumbar laminectomy (~2016) S/P left rotator cuff repair (~1992) Family History Family History Father Diabetes mellitus Hypertension Mother Diabetes mellitus Hypertension Congestive heart failure Depression Sibling Hypertension Social History Social History Social History: Patient drinks 1 cup of caffeine daily Smoking status: Never smoker Second hand tobacco smoke exposure: No Alcohol intake: former Alcohol use details: Patient drinks rarely. Substance use: never Substance use type: does not use Gender identity (if verbalized by the patient): Male Sexual Orientation (if Verbalized by the Patient): Straight or Heterosexual Spiritual care concerns: No Agree to blood products: No Exam Narrative: EXAMINATION OF ORGAN SYSTEMS/BODY AREAS: Constitutional: Vital signs per nursing GENERAL:[No acute distress, non-toxic appearing.] HEAD: Normal with no signs of head trauma. EYES: EOMI, conjunctiva normal ENT: Hearing grossly intact LUNGS: Nonlabored breathing. HEART: [Regular rate and rhythm] ABD: [Soft], [tender to palpation] EXT: Normal range of motion SKIN: [No rashes or lesions.] NEURO: [Alert and oriented x 3. No gross focal sensory or strength deficits.] PSYCH: Normal affect Course Course Emergency Course: 70-year-old male presents with crushing chest pain on exertion, vital signs stable here, exam unremarkable cardiopulmonary and neurologic exam, concern is for ACS/MA versus valvular etiology, dehydration or medication side effect amongst other differentials, EKG here is nonischemic, labs unremarkable including a negative troponin, his would like him to be admitted and patient is agreeable to this, heart score 5. Case discus
--- NOTE | 2021-08-01 20:09 | PM.IMHP ---
H&P: HPI History of Present Illness Date/Time: 08/01/21 20:09 [facility] Past Medical History Medical History Basal cell carcinoma (~2015) Chest pain Family history of punctured lung Hypertension Inflammatory arthritis Insomnia Ischial bursitis of left side Kidney stones Left hip pain Left temporomandibular joint disorder, unspecified Long-term current use of testosterone cypionate Low testosterone in male Pelvic avulsion fracture 04/2019 Surgical History Surgical History H/O endoscopy (~2016) H/O neck surgery (~1994) H/O plastic surgery (~2016) History of back surgery (~2010) History of carpal tunnel surgery (~1993) Hx of decompressive lumbar laminectomy (~2016) S/P left rotator cuff repair (~1992) Family History Family History Father Diabetes mellitus Hypertension Mother Diabetes mellitus Hypertension Congestive heart failure Depression Sibling Hypertension Social History Social History Social History: Patient drinks 1 cup of caffeine daily Smoking status: Never smoker Second hand tobacco smoke exposure: No Alcohol intake: former Alcohol use details: Patient drinks rarely. Substance use: never Substance use type: does not use Gender identity (if verbalized by the patient): Male Sexual Orientation (if Verbalized by the Patient): Straight or Heterosexual Spiritual care concerns: No Agree to blood products: No Meds Home Medications and Allergies Home Medications Medication Instructions Recorded Confirmed Type amlodipine 10 mg tablet 10 mg PO DAILY #90 tablet 06/29/20 07/04/21 Rx doxazosin 8 mg tablet 8 mg PO DAILY #90 tablet 06/29/20 07/04/21 Rx syringe with needle 3 mL 23 gauge #12 ea 01/27/21 07/04/21 Rx x 1 1/2 testosterone cypionate 200 mg/mL 60 mg IM WEEKLY #10 ml 01/27/21 07/04/21 Rx intramuscular oil escitalopram oxalate 10 mg tablet 10 mg PO QHS tablet 07/25/21 History hydroxyzine HCl 25 mg tablet 50 mg PO QID tablet 07/25/21 History quetiapine 100 mg tablet 100 mg PO QHS 07/25/21 History aspirin [Aspir-81] 81 mg 08/01/21 History clonazepam [Klonopin] 1 mg PO HS 08/01/21 History duloxetine 30 mg PO DAILY 08/01/21 History tramadol 50 mg BID 08/01/21 History Allergies Allergy/AdvReac Type Severity Reaction Status Date / Time ketamine Allergy Hallucinati Verified 08/01/21 17:31 ons pregabalin [From Lyrica] AdvReac Severe Suicidal Verified 08/01/21 17:31 Ideations Vital Signs Vital Signs - 24 hr 08/01/21 17:24 08/01/21 17:26 08/01/21 17:40 Temperature 98.2 F Pulse Rate 62 63 58 L Respiratory Rate 17 21 H 18 Blood Pressure 175/84 H Pulse Oximetry 100 100 100 08/01/21 17:45 08/01/21 17:57 08/01/21 18:00 Temperature Pulse Rate 52 L 53 L 50 L Respiratory Rate 17 12 Blood Pressure Pulse Oximetry 100 98 08/01/21 18:15 08/01/21 18:30 08/01/21 18:45 Temperature Pulse Rate 51 L 44 L 50 L Respiratory Rate 11 L 17 15 Blood Pressure 167/78 H Pulse Oximetry 99 98 99 H&P: Results Labs Labs: Short CBC 08/01/21 Range/Units 17:39 WBC 10.3 H (4.5-10.0) K/mm3 Hgb 15.0 (14.0-18.0) g/dL Hct 44.8 (42.0-52.0) % Plt Count 598 H (150-375) k/mm3 BMP 08/01/21 17:39 Sodium 137 Potassium 4.0 Chloride 105 Carbon Dioxide 25 BUN 20 Creatinine 1.20 Glucose 94 Calcium 8.8 Cardiac Enzymes 08/01/21 Range/Units 17:39 Troponin I < 0.012 (0.000-0.034) ng/mL Liver Function 08/01/21 Range/Units 17:39 Total Bilirubin 1.4 H (0.2-1.3) mg/dL AST 25 (17-59) U/L ALT 19 (6-50) U/L Alkaline Phosphatase 61 (38-126) U/L Albumin 4.1 (3.5-5.1) g/dL
--- NOTE | 2021-08-01 21:02 | ADMGEN ---
This patient, Paul Dutton, was admitted to 2 Medical Room 240-. Patient/family oriented to hospital policies and general routines including ID bracelet, bed and alarms, visiting hours, pain management, procedures, bathroom and other care routines, personal items, smoking policy, room service/diet, and visiting hours. Information on how to activate the Rapid Response Team has been discussed. Patient/Family are encouraged to report perceived risks to care and to ask questions if they do not understand what they are told or what they should do.
[2021-08-01 21:14] LABS: Troponin I < 0.012 ng/mL (0.000-0.034)
[2021-08-02] VITALS (18 sets, daily range): BP systolic 78–163; BP diastolic 48–74; PULSE 47–95; RESP 14–18; TEMP 36.3–37.5; O2SAT 94–98; BMI 23.1; BMI 11.0
--- NOTE | 2021-08-02 | ECHO_ITS ---
Patient Info Name: Paul Dutton Age: 70 years : 1950 Gender: Male Ht: 72 in Wt: 170 lbs BSA: 1.98 m2 HR: 54 bpm BP: 150 / 71 mmHg Heart Rhythm: Sinus Rhythm Technical Quality: Fair Exam Date: 08/02/2021 11:32 AM Exam Location: [facility] Patient Status: Outpatient Admit Date: 08/01/2021 Staff Ordering Physician: Mauri Trejo MD Ice Skating Coach: Sanjuana Chao RDCS Attending Provider: Yusuf Tanner M.A., MD Exam Type: CA echo doppler color flow Study Info Indications - pre-syncope Complete two-dimensional, color flow and Doppler transthoracic echocardiogram is performed. Summary 1. Complete two-dimensional, color flow and Doppler transthoracic echocardiogram is performed. 2. Left ventricular chamber dimension is normal. 3. Ventricular septum is sigmoid shaped. No LVOT obstruction. 4. Left ventricular systolic function is normal, estimated at 60-65%. 5. There is mildly increased left ventricular wall thickness. 6. The left ventricular diastolic function is grade I diastolic dysfunction. 7. E/e' 14 is mildly elevated. 8. There is mild aortic valve sclerosis. 9. No pulmonary hypertension, estimated pulmonary arterial systolic pressure is 16 mmHg. 10. There is trace pulmonic regurgitation. Left Ventricle E/e' 14 is mildly elevated. Ventricular septum is sigmoid shaped. No LVOT obstruction. Left ventricular chamber dimension is normal. Left ventricular systolic function is normal, estimated at 60-65%. There is mildly increased left ventricular wall thickness. The left ventricular diastolic function is grade I diastolic dysfunction. Right Ventricle Right ventricular chamber dimension is normal. Right ventricular systolic function is normal. Left Atria Left atrial chamber dimension is normal. Right Atria Right atrial chamber dimension is normal. Aortic Valve The aortic valve is trileaflet. There is mild aortic valve sclerosis. There is no aortic valve stenosis. There is no aortic valve regurgitation. Pulmonic Valve There is trace pulmonic regurgitation. Mitral Valve There is no mitral valve stenosis. There is no mitral valve regurgitation. Tricuspid Valve There is no tricuspid valve regurgitation. No pulmonary hypertension, estimated pulmonary arterial systolic pressure is 16 mmHg. Pericardium/Pleural There is no pericardial effusion. Inferior Vena Cava Normal inferior vena cava with >50% collapse upon inspiration consistent with normal right atrial pressure, 5 mmHg. Aorta The aortic root size at the sinus of Valsalva is normal. Left Ventricular Outflow Tract Name Value Normal LVOT 2D LVOT Diameter 2.0 cm LVOT Doppler LVOT Peak Gradient 5 mmHg LVOT Mean Gradient 2 mmHg LVOT VTI 22 cm LVOT VTI/AV VTI Ratio 0.8 LVOT Stroke Volume 67 ml LVOT CO 3.5 l/min LVOT CI 1.8 l/min/m2 Pulmonic Valve
[2021-08-02 00:32] LABS: Troponin I < 0.012 ng/mL (0.000-0.034)
[2021-08-02] MEDS: QUEtiapine FUMARATE 100 MG TABLET PO (02:19)
[2021-08-02] MEDS: clonazePAM (*CRX) 0.5 MG TABLET 1 MG PO ×2 (02:20→21:40)
--- NOTE | 2021-08-02 08:57 | PM.IMHP ---
H&P: HPI History of Present Illness Date/Time: 08/02/21 08:57 Chief Complaint: Dizziness Narrative: 70yo male with HTN, chronic pain and anxiety presents to the ED for weakness, dizziness and chest pain. Patient has chronic left pelvic pain and is followed by pain management at [facility]. Around the end of April, patient was admitted to [facility] with suicidal ideation and was told it was due to him taking Lyrica. He has stopped this around the end of April. Patient has been followed by Psychiatry for this. History is obtained from the patient but also from his by phone with the patient's permission. Patient was started on hydroxyzine 25 mg which was later advanced to 50 mg that he takes 4 times a day since July 02. Seroquel 50 mg was added on July 12 and this was increased to 100 mg on July 25. He was also started on Lexapro 5 mg on July 20 and this was advanced to 10 mg. Duloxetine was added on July 25 at 30 mg as well. He was recently at his psychiatrist's office and was told this blood pressure was 80/40. Psychiatrist called primary care doctor and was decided to stop his amlodipine. Patient has been off amlodipine for about a week now. No other changes in his medications. About 2-3 weeks ago, patient began to have symptoms of dizziness that he describes as lightheadedness mostly with standing as well as room spinning sensation. He has been feeling more confused which seems to be worse with standing. He has been falling as well. He states that if he stands for prolonged periods, he gets weak in the legs. He has to sit to brush his teeth. He even states his arms get fatigued with this activity. He denies any fever, chills or diaphoresis. Does feel cold at times. No headaches. Does complain of dry mouth but no urine retention symptoms. He has a weak urine stream but this is more chronic. No dysuria or hematuria. No back pain. No nausea, vomiting, diarrhea or constipation issues. No abdominal pain. He does have the chronic mostly left-sided pelvic pain. He denies any numbness or tingling in his extremities. He does complain of ?pressure on my chest and in both my arms? that occurs with standing and when he is ?under stress? that he describes as anxiety. He mentioned to the ER provider that it was crushing and occurred on exertion; when asked, he describes more as 'someone sitting on my chest'. Pain is worse with anxiety symptoms. No SOB, nausea or diaphroesis. Pain involves the upper chest and arms lasting about 15 minutes. Better when he sits. He has no history of coronary disease. He has never had a stress test. He was walking his dog about 2 months ago and denied any chest pain or shortness of breath with that activity. He tried to walk the dog last week but became fatigued but denied any shortness of breath or chest pain. No exposure to anyone who was ill. He denies suicidal or homicidal ideation. He still takes morphine 15mg 1-2x/day. Sleep habits are still poor with sleeping up to 4hrs per day. He called his psychiatrist and was concerned that his symptoms may be related to side effects from the medications that he takes but he was instructed to go to the emergency room for evaluation. In the Emergency room, his blood pressure was 175/84 with a pulse of 58. EKG showed sinus bradycardia rate of 58 with baseline artifact in no acute ST T wave changes. Chest x-ray was clear.. Troponin was negative x3. Lab work overall was unremarkable. No treatment was rendered in the emergency room. He was admitted for further care. He was given Seroquel and Klonopin in ventilating expert hours. Review of Systems Review of Systems: All systems reviewed & are unremarkable except as noted in HPI and below [facility] Past Medical History Medical History (Updated 08/02/21 @ 09:19 by Mauri Trejo MD) Anxiety Basal cell carcinoma (~2016) Chest pain Family history of punctured lung Hypertensi
--- NOTE | 2021-08-02 09:38 | ECG_ITS ---
Measurements Intervals [place] Rate: 56 P: 36 CO: 167 QRS: -3 QRSD: 104 T: 53 QT: 435 QTc: 422 Interpretive Statements SINUS BRADYCARDIA MINIMAL Q WAVES- HIGH LATERAL LEADS BORDERLINE ECG Electronically Signed On 08-02-2021 11:30:24 CDT by Shreyas Russell D.O.
[2021-08-02] MEDS: ENOXAPARIN 40 MG/0.4 ML SYRINGE SUB-Q (09:49)
[2021-08-02] MEDS: DOXAZOSIN MESYLATE 4 MG TABLET 8 MG PO (09:50)
[2021-08-02] MEDS: DULoxetine HCL 30 MG CAPSULE.DR PO (09:50)
[2021-08-02] MEDS: ASPIRIN 81 MG ENTERIC TABLET PO (09:50)
[2021-08-02] MEDS: traMADol HCL (*CRX) 50 MG TABLET PO ×2 (09:52→16:36)
[2021-08-02] MEDS: hydrOXYzine HCL 25 MG TABLET PO ×3 (12:04→21:40)
--- NOTE | 2021-08-02 13:53 | PCPTNOTE ---
Per OT Luz Marina and pts nurse, Pt is a hold at this time due to low BP concerns.
[2021-08-02] MEDS: SODIUM CHLORIDE 0.9% IV 1,000 ML 100 ML IV CONT (16:21)
[2021-08-02] MEDS: ESCITALOPRAM OXALATE 10 MG TABLET PO (21:40)
[2021-08-02] MEDS: QUEtiapine FUMARATE 25 MG TABLET 50 MG PO (21:40)
[2021-08-03] VITALS (15 sets, daily range): BP systolic 58–168; BP diastolic 48–75; PULSE 40–95; RESP 16–18; TEMP 35.9–37.2; O2SAT 95–99
[2021-08-03] MEDS: SODIUM CHLORIDE 0.9% IV 1,000 ML 100 ML IV CONT ×3 (02:13→21:48)
[2021-08-03 06:16] LABS: Cholesterol 125 mg/dL (0-200); HDL Direct 32 mg/dL; Triglycerides 82 mg/dL (<150)
[2021-08-03 06:26] LABS: LDL Cholesterol Direct 68 mg/dL
[2021-08-03 07:04] LABS: Rapid Plasma Reagin Non-Reactive (NonReactive)
[2021-08-03 07:22] LABS: Folic Acid 7.7 ng/mL (2.76->20)
--- NOTE | 2021-08-03 08:09 | ECG_ITS ---
Measurements Intervals [place] Rate: 46 P: 37 ID: [id number] QRS: -12 QRSD: 109 T: 52 QT: 478 QTc: 422 Interpretive Statements SINUS BRADYCARDIA DELAYED PRECORDIAL R/S TRANSITION MINIMAL Q WAVES- HIGH LATERAL LEADS ABNORMAL ECG Electronically Signed On 08-03-2021 8:48:40 CDT by Shreyas Russell D.O.
[2021-08-03] MEDS: ENOXAPARIN 40 MG/0.4 ML SYRINGE SUB-Q (08:58)
[2021-08-03] MEDS: DULoxetine HCL 30 MG CAPSULE.DR PO (08:58)
[2021-08-03] MEDS: hydrOXYzine HCL 25 MG TABLET PO ×4 (08:58→20:05)
[2021-08-03] MEDS: ASPIRIN 81 MG ENTERIC TABLET PO (08:58)
[2021-08-03] MEDS: DOXAZOSIN MESYLATE 4 MG TABLET 8 MG PO (08:58)
[2021-08-03] MEDS: traMADol HCL (*CRX) 50 MG TABLET PO (08:58)
--- NOTE | 2021-08-03 11:07 | PM.IMPN ---
Progress Note: A&P Assessment and Plan (1) Chest pain: Code(s): R07.9 - Chest pain, unspecified Status: Acute Assessment and Plan: Chest pain is atypical in nature. Could be multifactorial related to his anxiety and/or orthostatic hypotension causing cardiac strain. EKG reviewed showing no acute findings with QTc of 397. Troponin negative x3. Tele showing bradycardia. LDL 68. Echo showing EF 60-65% with Grade I diastolic dysfunction. EKG repeated showing Q's in high lateral and poor R wave progression but no chane from admission. Continue aspirin. Stress test held off due to his orthostatic HoTN. Cards consult. (2) Orthostatic hypotension: Code(s): I95.1 - Orthostatic hypotension Status: Acute Assessment and Plan: Patient having pre-syncope symptoms 2nd to orthostatic HoTN. Suspect related to recent medication changes. Hydroxizine dose cut down yesterday and Seroquel decreased last night. Still having significant drop with standing. TSH normal. The duloxetine and Seroquel both cause HoTN. Hydroxyzine, Seroquel and Lexapro cause QTc prolongation. Will cut Seroquel back again. Continue IV fluids. Continue Dank hose. Check Cortisol level. Tramadol also can cause this so will cut this back as well. (3) Pre-syncope: Code(s): R55 - Syncope and collapse Status: Acute Assessment and Plan: Patient with weakness and lightheadedness from standing related to orthostatic hypotension. As above. (4) Hypertension: Qualifiers: Hypertension type: essential hypertension Qualified Code(s): I10 - Essential (primary) hypertension Code(s): I10 - Essential (primary) hypertension Status: Acute Assessment and Plan: Blood pressure elevated on admission and is elevated at times. Doxazosin was continued but Norvasc stopped. He was on Norvasc and Cardura for a long time without issue so still feel his other medications are causing the orthostatic HoTN. We will stop Cardura now. (5) Chronic, continuous use of opioids: Code(s): F11.90 - Opioid use, unspecified, uncomplicated Status: Acute Assessment and Plan: On Morphine prn but takes regularly so will resume so as to prevent withdrawal. 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 Patient currently on Seroquel, Lexapro, Cymbalta and hydroxyzine. He also takes Klonopin at night which is more of a chronic medication. As above. We cut back his hydroxyzine and Seroquel. Cut back his Seroquel again. Monitor mood. (7) Bradycardia: Code(s): R00.1 - Bradycardia, unspecified Status: Acute Assessment and Plan: He is still noted to be bradycardic but his new medications do not appear to cause bradycardia. It may be in response to the elevated blood pressure since being off of his amlodipine or possibly this is his baseline and just noted since being on a monitor. ApneaLink not consistent with NGOZI. Echo noted as above. Continue telemetry. Cards consult (8) Thrombocytosis: Code(s): D75.839 - Thrombocytosis, unspecified Status: Acute Assessment and Plan: Platelet count mildly elevated. No evidence of infectious process. Has been mildly elevated for over a year. Continue to monitor. (9) DVT prophylaxis: Code(s): Z29.9 - Encounter for prophylactic measures, unspecified Status: Acute Assessment and Plan: Lovenox Subjective Date/time seen: 08/03/21 11:07 Interval history: 70yo male with HTN, chronic pain and anxiety presents to the ED for weakness, dizziness and chest pain. No problems overnight. No CP or SOB. Was up yesterday for the CT scan and did feel dizzy. (spoke with RN later after the orthostatic VS don
--- NOTE | 2021-08-03 15:08 | PM.CNCAR ---
Assessment and Plan Assessment and plan (1) Bradycardia: Code(s): R00.1 - Bradycardia, unspecified Status: Acute Assessment and Plan: Sinus bradycardia without prolonged pauses or high-grade AV blocks. While it is possible some of his medications such as Seroquel or Lexapro may contribute to bradycardia this is uncommon and generally not clinically significant. QT prolongation more likely seen but also not noted on his EKGs. I do not feel his bradycardia is the cause of his symptoms or orthostasis yet certainly may possibly contribute or least reduce compensatory positional increase in heart rate to minimize symptoms. Avoid AV cal blocking agents or medications known resultant in significant bradycardia. No indication for pacemaker. Will continue to follow with you. Patient and his report heart rates generally in the 70s 80s prior to recent medication changes. (2) Chest pain: Qualifiers: Chest pain type: other chest pain Qualified Code(s): R07.89 - Other chest pain Code(s): R07.9 - Chest pain, unspecified Status: Acute Assessment and Plan: Atypical, nonexertional patient describes in association with anxiety. Ischemic evaluation is reasonable but I would defer for the time being. We can make a further determination with regard to timing based on his response to medication changes thus far. (3) Orthostatic hypotension: Code(s): I95.1 - Orthostatic hypotension Status: Acute Assessment and Plan: Agree with IV fluids to eliminate intravascular volume depletion as cause. Strongly suspect his symptoms are related to medication and or drug drug interactions resulting in symptomatic orthostatic hypotension. I agree with the changes that have been made thus far by the primary service. I would not recommend adding additional treatment such as midodrine or fludrocortisone at this time. Continue to monitor orthostatic vital signs, ambulate with caution. PT OT. Dank martinez. Minimize antihypertensives. I expect clinical improvement with the above changes but further down titration may be required. Discussed at great length with the patient and his . All questions answered to their satisfaction. Discussed with primary service as well. TSH normal, no LVOT obstruction by echo. EF preserved no significant valve pathology as contributor. CT head negative. Clinical history is not strongly suggestive of autonomic dysfunction as explanation. (4) Medication side effects: Code(s): T88.7XXA - Unspecified adverse effect of drug or medicament, initial encounter Status: Acute Assessment and Plan: As above, I strongly feel patient's presenting symptoms are a consequence of medication side effects and drug interactions. As such I agree with down titration and simplification medical management in this regard. (5) Anxiety: Code(s): F41.9 - Anxiety disorder, unspecified Status: Acute Assessment and Plan: Management per primary service. Conscientious down titration and or simplification medical therapy nor to manage his anxiety symptoms in minimize medication side effects. (6) Hypertension: Qualifiers: Hypertension type: essential hypertension Qualified Code(s): I10 - Essential (primary) hypertension Code(s): I10 - Essential (primary) hypertension Status: Acute Assessment and Plan: Agree with holding antihypertensives. Agree with a degree of permissive hypertension given ongoing significant symptomatic orthostasis. History of Present Illness History of Present Illness Consult date/time: Date of service: 08/03/21 15:08 Cardiology consultation at the request of Dr. Trejo of the [facility] service for opinion regarding chest pain, bradycardia, and orthostatic hypotension. Requesting physician: Mauri Trejo MD Consult reason: chest pain and Other (Bradycardia, orthostatic hypotension) Reason For Visit:
[2021-08-03] MEDS: traMADol HCL (*CRX) 25 MG TABLET PO (17:31)
[2021-08-03] MEDS: ESCITALOPRAM OXALATE 10 MG TABLET PO (20:05)
[2021-08-03] MEDS: clonazePAM (*CRX) 0.5 MG TABLET 1 MG PO (20:05)
[2021-08-03] MEDS: QUEtiapine FUMARATE 25 MG TABLET PO (20:05)
[2021-08-04] VITALS (14 sets, daily range): BP systolic 102–196; BP diastolic 54–71; PULSE 41–77; RESP 17; TEMP 36.2–36.4; O2SAT 95–98
[2021-08-04] MEDS: MORPHINE SULFATE (*CRX) 15 MG TAB IR PO (03:17)
[2021-08-04 05:57] LABS: Hematocrit 40.3 % (42.0-52.0); Hemoglobin 13.3 g/dL (14.0-18.0); Mean Corpuscular Hemoglobin 28.2 pg (26-34); Mean Corpuscular Volume 85.4 fl (80-100); Mean Platelet Volume 9.7 fl (7.4-10.4); Platelet Count Result 524 k/mm3 (150-375); Red Blood Count 4.72 M/mm3 (4.6-6.20); White Blood Count 8.8 K/mm3 (4.5-10.0)
[2021-08-04 06:06] LABS: Alanine Aminotransferase 16 U/L (6-50); Albumin Level 3.4 g/dL (3.5-5.1); Alkaline Phosphatase 47 U/L (38-126); Anion Gap 5 mmol/L (8-16); Aspartate Amino Transferase 22 U/L (17-59); Bilirubin,Total 0.9 mg/dL (0.2-1.3); Blood Urea Nitrogen 17 mg/dL (9-20); Carbon Dioxide 26 mmol/L (22-30); Chloride 105 mmol/L (98-107); Estimated CRCL calculation 67 ml/min; Estimated Glomerular Filt Rate > 60; Glucose 87 mg/dL (65-110); Magnesium 2.1 mg/dL (1.6-2.3); Potassium 3.7 mmol/L (3.4-5.0); Sodium 136 mmol/L (137-145)
[2021-08-04 06:36] LABS: Cortisol Random 3.75 ug/dL
[2021-08-04 07:52] LABS: Cortisol Baseline 1.94 ug/dL
[2021-08-04] MEDS: SODIUM CHLORIDE 0.9% IV 1,000 ML 100 ML IV CONT ×2 (08:08→17:44)
[2021-08-04] MEDS: DULoxetine HCL 30 MG CAPSULE.DR PO (08:08)
[2021-08-04] MEDS: traMADol HCL (*CRX) 25 MG TABLET PO ×2 (08:08→17:12)
[2021-08-04] MEDS: hydrOXYzine HCL 25 MG TABLET PO ×3 (08:08→17:12)
[2021-08-04] MEDS: ASPIRIN 81 MG ENTERIC TABLET PO (08:08)
[2021-08-04] MEDS: ENOXAPARIN 40 MG/0.4 ML SYRINGE SUB-Q (08:08)
[2021-08-04] MEDS: COSYNTROPIN 0.25 MG/ML VIAL IV PUSH (08:09)
--- NOTE | 2021-08-04 12:21 | PCCCNOTE ---
On 08/04/21, the student, [Jennifer Jameson ], provided care and completed [facility] documentation on this patient. I have reviewed the student's documentation and agree with the findings.
--- NOTE | 2021-08-04 12:24 | PM.PNCARD ---
Progress Note: A&P Assessment and Plan (1) Bradycardia: Code(s): R00.1 - Bradycardia, unspecified <VAUGHN Giraldo - Last Filed: 08/04/21 14:35> Status: Acute <VAUGHN Giraldo - Last Filed: 08/04/21 14:35> Assessment and Plan: Sinus bradycardia without prolonged pauses or high-grade AV blocks. While it is possible some of his medications such as Seroquel or Lexapro may contribute to bradycardia this is uncommon and generally not clinically significant. QT prolongation more likely seen but also not noted on his EKGs. Bradycardia like is not the cause of his symptoms or orthostasis yet certainly may possibly contribute or least reduce compensatory positional increase in heart rate to minimize symptoms. Avoid AV cal blocking agents or medications known resultant in significant bradycardia. No indication for pacemaker No further cardiac recommendations at this time. Will continue to follow with you on an as needed basis <VAUGHN Giraldo - Last Filed: 08/04/21 14:35> (2) Chest pain: Qualifiers: Chest pain type: other chest pain Qualified Code(s): R07.89 - Other chest pain <VAUGHN Giraldo - Last Filed: 08/04/21 14:35> Code(s): R07.9 - Chest pain, unspecified <VAUGHN Giraldo - Last Filed: 08/04/21 14:35> Status: Acute <VAUGHN Giraldo - Last Filed: 08/04/21 14:35> Assessment and Plan: Atypical, nonexertional patient describes in association with anxiety. Ischemic evaluation is reasonable as an outpatient. Will arrange outpatient follow up to discuss. <VAUGHN Giraldo - Last Filed: 08/04/21 14:35> (3) Orthostatic hypotension: Code(s): I95.1 - Orthostatic hypotension <VAUGHN Giraldo - Last Filed: 08/04/21 14:35> Status: Acute <VAUGHN Giraldo - Last Filed: 08/04/21 14:35> Assessment and Plan: Agree with IV fluids to eliminate intravascular volume depletion as cause. Strongly suspect his symptoms are related to medication and or drug drug interactions resulting in symptomatic orthostatic hypotension. Agree with the changes that have been made thus far by the primary service. TSH normal, no LVOT obstruction by echo. EF preserved no significant valve pathology as contributor. CT head negative. Clinical history is not strongly suggestive of autonomic dysfunction as explanation. Continue to monitor orthostatic vital signs, ambulate with caution. PT OT. Dank martinez. Minimize antihypertensives. <VAUGHN Giraldo - Last Filed: 08/04/21 14:35> (4) Medication side effects: Code(s): T88.7XXA - Unspecified adverse effect of drug or medicament, initial encounter <VAUGHN Giraldo - Last Filed: 08/04/21 14:35> Status: Acute <VAUGHN Giraldo - Last Filed: 08/04/21 14:35> Assessment and Plan: As above, feel patient's presenting symptoms are likely a consequence of medication side effects and drug interactions. <VAUGHN Giraldo - Last Filed: 08/04/21 14:35> (5) Anxiety: Code(s): F41.9 - Anxiety disorder, unspecified <VAUGHN Giraldo - Last Filed: 08/04/21 14:35> Status: Acute <VAUGHN Giraldo - Last Filed: 08/04/21 14:35> Assessment and Plan: Management per primary service. Conscientious down titration and or simplification medical therapy nor to manage his anxiety symptoms in minimize medication side effects. <VAUGHN Giraldo - Last Filed: 08/04/21 14:35> (6) Hypertension: Qualifiers: Hypertension type: essential hypertension Qualified Code(s): I10 - Essential (primary) hypertension <VAUGHN Giraldo - Last Filed: 08/04/21 14:35> Code(s): I10 - Essential (primary) hypertension <VAUGHN Giraldo - Last Filed: 08/04/21 14:35> Status: Acute <VAUGHN Giraldo - Last Filed: 08/04/21 14
--- NOTE | 2021-08-04 12:56 | PM.IMPN ---
Progress Note: A&P Assessment and Plan (1) Chest pain: Qualifiers: Chest pain type: other chest pain Qualified Code(s): R07.89 - Other chest pain Code(s): R07.9 - Chest pain, unspecified Status: Acute Assessment and Plan: Chest pain is atypical in nature. Could be multifactorial related to his anxiety and/or orthostatic hypotension causing cardiac strain. EKG reviewed showing no acute findings with QTc of 397. Troponin negative x3. Tele showing bradycardia mostly at night. LDL 68. Echo showing EF 60-65% with Grade I diastolic dysfunction. EKG repeated showing Q's in high lateral and poor R wave progression but no change from admission. Continue aspirin. Cards consulted and appreciate their input (2) Orthostatic hypotension: Code(s): I95.1 - Orthostatic hypotension Status: Acute Assessment and Plan: Patient having pre-syncope symptoms 2nd to orthostatic HoTN. Suspect related to recent medication changes. The duloxetine and Seroquel both cause HoTN. Hydroxyzine, Seroquel and Lexapro cause QTc prolongation. Tramadol causes orthostatic HoTN but he has been on this for years. Hydroxyzine, Tramadol and Seroquel doses decreased. Still having significant drop with standing but better and less symptomatic. TSH normal. Cortisol level low this morning and Cortisol stim test ordered and results pending. Continue IV fluids. Continue Dank hose. Will stop Seroquel. Continue to wean hydroxyzine. Increase activity now (3) Pre-syncope: Code(s): R55 - Syncope and collapse Status: Acute Assessment and Plan: Patient with weakness and lightheadedness from standing related to orthostatic hypotension. As above. (4) Hypertension: Qualifiers: Hypertension type: essential hypertension Qualified Code(s): I10 - Essential (primary) hypertension Code(s): I10 - Essential (primary) hypertension Status: Acute Assessment and Plan: Blood pressure elevated on admission and is elevated at times. He has been on Norvasc and Cardura for a long time without issue so still feel his other medications are causing the orthostatic HoTN. Doxazosin and Norvasc stopped. (5) Chronic, continuous use of opioids: Code(s): F11.90 - Opioid use, unspecified, uncomplicated Status: Acute Assessment and Plan: On Morphine prn but takes regularly so will resume so as to prevent withdrawal. 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 Patient currently on Seroquel, Lexapro, Cymbalta and hydroxyzine. He also takes Klonopin at night which is more of a chronic medication. As above. We cut back his hydroxyzine and stop Seroquel. Monitor mood. (7) Bradycardia: Code(s): R00.1 - Bradycardia, unspecified Status: Acute Assessment and Plan: He is still noted to be bradycardic but his new medications do not appear to cause bradycardia. It may be in response to the elevated blood pressure since being off of his amlodipine or possibly this is his baseline and just noted since being on a monitor. ApneaLink not consistent with NGOZI. Echo noted as above. Continue telemetry. Cards input appreciated (8) Thrombocytosis: Code(s): D75.839 - Thrombocytosis, unspecified Status: Acute Assessment and Plan: Platelet count mildly elevated. No evidence of infectious process. Has been mildly elevated for over a year. Continue to monitor. (9) DVT prophylaxis: Code(s): Z29.9 - Encounter for prophylactic measures, unspecified Status: Acute Assessment and Plan: Lovenox Subjective Date/time seen: 08/04/21 12:56 Interval history: 70yo male with HTN, chronic pain and anxiety presents to
[2021-08-04] MEDS: clonazePAM (*CRX) 0.5 MG TABLET 1 MG PO (20:32)
[2021-08-04] MEDS: ESCITALOPRAM OXALATE 10 MG TABLET PO (20:32)
[2021-08-04] MEDS: MELATONIN 5 MG TABLET PO (20:32)
[2021-08-05] VITALS (17 sets, daily range): BP systolic 85–205; BP diastolic 60–90; PULSE 44–92; RESP 18; TEMP 36.6–36.9; O2SAT 97–100
--- NOTE | 2021-08-05 04:49 | PC.NURSE ---
08/04 at 2200: notified tonya mike of patient sbp of 200 and continued orthostatic blood pressure changes. intsructed to continue to advise patient to sit with hob up while in bed.
[2021-08-05] MEDS: ASPIRIN 81 MG ENTERIC TABLET PO (09:15)
[2021-08-05] MEDS: ENOXAPARIN 40 MG/0.4 ML SYRINGE SUB-Q (09:15)
--- NOTE | 2021-08-05 09:38 | PM.IMPN ---
Progress Note: A&P Assessment and Plan (1) Chest pain: Qualifiers: Chest pain type: other chest pain Qualified Code(s): R07.89 - Other chest pain Code(s): R07.9 - Chest pain, unspecified Status: Acute Assessment and Plan: Chest pain is atypical in nature. Could be multifactorial related to his anxiety and/or orthostatic hypotension causing cardiac strain. EKG reviewed showing no acute findings with QTc of 397. Troponin negative x3. Tele showing bradycardia mostly at night but better last night. LDL 68. Echo showing EF 60-65% with Grade I diastolic dysfunction. EKG repeated showing Q's in high lateral and poor R wave progression but no change from admission. Continue aspirin. Cards consulted and appreciate their input (2) Orthostatic hypotension: Code(s): I95.1 - Orthostatic hypotension Status: Acute Assessment and Plan: Patient having pre-syncope symptoms 2nd to orthostatic HoTN. Suspect related to recent medication changes. The duloxetine and Seroquel both cause HoTN and these have now been stopped. Hydroxyzine, Seroquel and Lexapro cause QTc prolongation but QT okay. Tramadol causes orthostatic HoTN and adrenal insuff but he has been on this for years; Tramadol dose decreased and changed to prn. Hydroxyzine dose decreased. TSH normal. Cortisol level low and Cortisol stim test showing normal response. Possibly 2nd adrenal insufficinecy. We stopped IV fluids yesterday but still having significant drop in BP with standing. Continue Dank hose. Will resume IV fluids. Add hydrocorisone as we wait for ACTH result. If this is elevated, then that excludes 2nd adrenal insufficiency. (3) Pre-syncope: Code(s): R55 - Syncope and collapse Status: Acute Assessment and Plan: Patient with weakness and lightheadedness from standing related to orthostatic hypotension and probably his medications. As above. Continue to wean off these new medications. (4) Hypertension: Qualifiers: Hypertension type: essential hypertension Qualified Code(s): I10 - Essential (primary) hypertension Code(s): I10 - Essential (primary) hypertension Status: Acute Assessment and Plan: Blood pressure elevated on admission and is elevated at times. He was on Norvasc and Cardura for a long time without issue so still feel his other medications are causing the orthostatic HoTN. Doxazosin and Norvasc held. (5) Chronic, continuous use of opioids: Code(s): F11.90 - Opioid use, unspecified, uncomplicated Status: Acute Assessment and Plan: On Morphine prn but takes regularly so will resume so as to prevent withdrawal. 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 Patient currently on Seroquel, Lexapro, Cymbalta and hydroxyzine. He also takes Klonopin at night which is more of a chronic medication. As above. Thus far, we have cut back his hydroxyzine and stopped Seroquel an Cymbalta. Monitor mood. (7) Bradycardia: Code(s): R00.1 - Bradycardia, unspecified Status: Acute Assessment and Plan: He is still noted to be bradycardic but his new medications do not appear to cause bradycardia. It may be in response to the elevated blood pressure since being off of his amlodipine or possibly this is his baseline and just noted since being on a monitor. He is asymptomatic from this. ApneaLink not consistent with NGOZI. Echo noted as above. Continue telemetry. Cards input appreciated (8) Thrombocytosis: Code(s): D75.839 - Thrombocytosis, unspecified Status: Acute Assessment and Plan: Platelet count mildly elevated. No evidence of infectious process. Has been mildly elevated for over a year. Co
[2021-08-05] MEDS: hydrOXYzine HCL 25 MG TABLET PO ×2 (09:47→16:34)
[2021-08-05] MEDS: traMADol HCL (*CRX) 25 MG TABLET PO ×3 (09:47→20:43)
[2021-08-05] MEDS: HYDROCORTISONE 10 MG TABLET PO (10:34)
[2021-08-05] MEDS: SODIUM CHLORIDE 0.9% IV 1,000 ML 100 ML IV CONT ×2 (10:38→20:36)
[2021-08-05] MEDS: HYDROCORTISONE 5 MG TABLET PO (16:30)
[2021-08-05] MEDS: HYOSCYAMINE SULFATE 0.125 MG TABLET PO (18:06)
[2021-08-05] MEDS: MORPHINE SULFATE (*CRX) 15 MG TAB IR PO (18:14)
[2021-08-05] MEDS: ESCITALOPRAM OXALATE 10 MG TABLET PO (20:37)
[2021-08-05] MEDS: MELATONIN 5 MG TABLET PO (20:37)
[2021-08-05] MEDS: clonazePAM (*CRX) 0.5 MG TABLET 1 MG PO (20:37)
[2021-08-06] VITALS (14 sets, daily range): BP systolic 104–179; BP diastolic 58–75; PULSE 50–85; RESP 16; TEMP 36.6–37.3; O2SAT 97–98
[2021-08-06] MEDS: MORPHINE SULFATE (*CRX) 15 MG TAB IR PO (03:32)
[2021-08-06] MEDS: HYOSCYAMINE SULFATE 0.125 MG TABLET PO ×3 (03:33→17:04)
[2021-08-06] MEDS: SODIUM CHLORIDE 0.9% IV 1,000 ML 100 ML IV CONT ×2 (06:44→16:58)
[2021-08-06 06:47] LABS: Basophils Absolute Auto 0.1 K/mm3 (0.0-0.1); Basophils Percent Auto 0.6 % (0.2-1.2); Eosinophils Absolute Auto 0.3 K/mm3 (0-0.3); Eosinophils Percent Auto 2.5 % (0-4.4); Hematocrit 41.2 % (42.0-52.0); Hemoglobin 13.6 g/dL (14.0-18.0); Immature Granulocyte Absolute 0.13 K/mm3 (0.00-0.031); Immature Granulocyte Percent A 1.2 % (0-0.5); Lymphocytes Absolute Auto 1.73 K/mm3 (0.9-3.2); Lymphocytes Percent Auto 15.8 % (18.3-44.2); Mean Corpuscular Volume 84.9 fl (80-100); Mean Platelet Volume 9.3 fl (7.4-10.4); Monocytes Percent Auto 9.1 % (2.6-8.5); Neutrophils Absolute Auto 7.8 K/mm3 (1.3-6.7); Neutrophils Percent Auto 70.8 % (45.5-73.1); Platelet Count Result 512 k/mm3 (150-375); Red Blood Count 4.85 M/mm3 (4.6-6.20); Red Cell Distribution Width 11.2 % (11.5-14.5)
[2021-08-06 07:01] LABS: Alanine Aminotransferase 18 U/L (6-50); Albumin Level 3.5 g/dL (3.5-5.1); Alkaline Phosphatase 50 U/L (38-126); Anion Gap 6 mmol/L (8-16); Aspartate Amino Transferase 24 U/L (17-59); Bilirubin,Total 1.4 mg/dL (0.2-1.3); Blood Urea Nitrogen 19 mg/dL (9-20); Calcium 8.3 mg/dL (8.4-10.2); Carbon Dioxide 26 mmol/L (22-30); Chloride 107 mmol/L (98-107); Estimated CRCL calculation 67 ml/min; Estimated Glomerular Filt Rate > 60; Glucose 91 mg/dL (65-110); Magnesium 2.1 mg/dL (1.6-2.3); Sodium 139 mmol/L (137-145)
[2021-08-06] MEDS: HYDROCORTISONE 10 MG TABLET PO (09:53)
[2021-08-06] MEDS: ASPIRIN 81 MG ENTERIC TABLET PO (09:53)
[2021-08-06] MEDS: ENOXAPARIN 40 MG/0.4 ML SYRINGE SUB-Q (09:53)
[2021-08-06] MEDS: hydrOXYzine HCL 25 MG TABLET PO (09:53)
[2021-08-06] MEDS: traMADol HCL (*CRX) 25 MG TABLET PO (09:57)
--- NOTE | 2021-08-06 12:59 | PM.IMPN ---
Progress Note: A&P Assessment and Plan (1) Chest pain: Qualifiers: Chest pain type: other chest pain Qualified Code(s): R07.89 - Other chest pain Code(s): R07.9 - Chest pain, unspecified Status: Acute Assessment and Plan: Chest pain is atypical in nature. 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 Reduce narcotics, benzodiazepine, and anticholinergics to p.r.n. only. (3) Pre-syncope: Code(s): R55 - Syncope and collapse Status: Acute Assessment and Plan: Holding antihypertensives (4) Hypertension: Qualifiers: Hypertension type: essential hypertension Qualified Code(s): I10 - Essential (primary) hypertension Code(s): I10 - Essential (primary) hypertension Status: Acute Assessment and Plan: Blood pressure elevated on admission and is elevated at times. He was on Norvasc and Cardura for a long time without issue so still feel his other medications are causing the orthostatic HoTN. Doxazosin and Norvasc held. (5) Chronic, continuous use of opioids: Code(s): F11.90 - Opioid use, unspecified, uncomplicated Status: Acute Assessment and Plan: On Morphine prn but takes regularly so will resume so as to prevent withdrawal. 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 Patient currently on Seroquel, Lexapro, Cymbalta and hydroxyzine. He also takes Klonopin at night which is more of a chronic medication. As above. Thus far, we have cut back his hydroxyzine and stopped Seroquel an Cymbalta. Monitor mood. (7) Bradycardia: Code(s): R00.1 - Bradycardia, unspecified Status: Acute Assessment and Plan: Remains asymptomatic (8) Thrombocytosis: Code(s): D75.839 - Thrombocytosis, unspecified Status: Acute Assessment and Plan: Worrisome for underlying inflammatory or neoplastic process. Check stool for occult blood. Encourage up-to-date cancer screening. (9) DVT prophylaxis: Code(s): Z29.9 - Encounter for prophylactic measures, unspecified Status: Acute Assessment and Plan: Lovenox Subjective Date/time seen: 08/06/21 12:59 Interval history: 08/06. Dizziness seems to be improving. Better day today. Able to tolerate some exercise. Appetite good. Chronic narcotic use due to left posterior thigh pain. History of surgery to reattached a torn hamstring tendon at the pelvic insertion site. Chronic aching pain persisted after the surgery. Pain is moderate to severe and worse with sitting. Actually is better when he gets up and moves about. Has tried gabapentin. Unable to tolerate Lyrica. Thinks he might have tried CBT but he is not certain. Has not tried Stefan Chi, targeted exercise, acupuncture. Chronic narcotic use provides relief. Was using b.i.d. tramadol 50 mg usually late morning and afternoon as well as p.r.n. morphine 15 mg b.i.d. Had recently started Seroquel, duloxetine. Was on escitalopram as well. Review of Systems Review of Systems: All systems reviewed & are unremarkable except as noted in HPI and below Exam Narrative: HEENT PERRL, sclerae nonicteric, pharyngeal mucosa pink and intact NECK: No JVD CHEST:
[2021-08-06] MEDS: HYDROcodone/acetaminophen (*CRX) 10-325 MG TABLET 1 TAB PO ×2 (15:13→23:17)
[2021-08-06] MEDS: ESCITALOPRAM OXALATE 10 MG TABLET PO (20:53)
[2021-08-06] MEDS: MELATONIN 5 MG TABLET 10 MG PO (20:54)
[2021-08-07] VITALS (13 sets, daily range): BP systolic 121–195; BP diastolic 68–78; PULSE 41–121; RESP 16–20; TEMP 36.8–37.2; O2SAT 98
[2021-08-07] MEDS: SODIUM CHLORIDE 0.9% IV 1,000 ML 100 ML IV CONT (03:02)
[2021-08-07 06:28] LABS: Hematocrit 39.5 % (42.0-52.0); Hemoglobin 12.7 g/dL (14.0-18.0); Mean Corpuscular HGB Conc 32.2 g/dl (32-36); Mean Platelet Volume 9.5 fl (7.4-10.4); Platelet Count Result 481 k/mm3 (150-375); Red Blood Count 4.54 M/mm3 (4.6-6.20); Red Cell Distribution Width 11.4 % (11.5-14.5); White Blood Count 9.7 K/mm3 (4.5-10.0)
[2021-08-07 06:54] LABS: Anion Gap 3 mmol/L (8-16); Blood Urea Nitrogen 18 mg/dL (9-20); CRP 1.2 mg/dL (<1.0); Calcium 8.1 mg/dL (8.4-10.2); Carbon Dioxide 28 mmol/L (22-30); Chloride 106 mmol/L (98-107); Estimated CRCL calculation 83 ml/min; Estimated Glomerular Filt Rate > 60; Glucose 100 mg/dL (65-110); Potassium 4.1 mmol/L (3.4-5.0); Sodium 137 mmol/L (137-145)
[2021-08-07] MEDS: HYDROcodone/acetaminophen (*CRX) 10-325 MG TABLET 1 TAB PO ×2 (08:57→22:17)
[2021-08-07] MEDS: ASPIRIN 81 MG ENTERIC TABLET PO (08:57)
[2021-08-07] MEDS: ENOXAPARIN 40 MG/0.4 ML SYRINGE SUB-Q (08:58)
[2021-08-07 17:00] LABS: IFOB Positive Control Positive; Immunochemical Fecal Occult Bl Negative (N)
--- NOTE | 2021-08-07 18:18 | PM.IMPN ---
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 Reduce narcotics, benzodiazepine, and anticholinergics to p.r.n. only. 08/07: Added HS Losartan 25mg. (2) BPH loc w urin obs/LUTS: Code(s): N40.1 - Benign prostatic hyperplasia with lower urinary tract symptoms Status: Acute Assessment and Plan: 08/07: Voiding trial after reduction of narcotics and anticholinergics. (3) Chest pain: Qualifiers: Chest pain type: other chest pain Qualified Code(s): R07.89 - Other chest pain Code(s): R07.9 - Chest pain, unspecified Status: Acute Assessment and Plan: Chest pain is atypical in nature. Evaluation unrevealing Cardiology input noted (4) Pre-syncope: Code(s): R55 - Syncope and collapse Status: Acute Assessment and Plan: Holding antihypertensives (5) Hypertension: Qualifiers: Hypertension type: essential hypertension Qualified Code(s): I10 - Essential (primary) hypertension Code(s): I10 - Essential (primary) hypertension Status: Acute Assessment and Plan: Blood pressure elevated on admission and is elevated at times. He was on Norvasc and Cardura for a long time without issue so still feel his other medications are causing the orthostatic HoTN. Doxazosin and Norvasc held. (6) Chronic, continuous use of opioids: Code(s): F11.90 - Opioid use, unspecified, uncomplicated Status: Acute Assessment and Plan: On Morphine prn but takes regularly so will resume so as to prevent withdrawal. 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 Patient currently on Seroquel, Lexapro, Cymbalta and hydroxyzine. He also takes Klonopin at night which is more of a chronic medication. As above. Thus far, we have cut back his hydroxyzine and stopped Seroquel an Cymbalta. Monitor mood. (8) Bradycardia: Code(s): R00.1 - Bradycardia, unspecified Status: Acute Assessment and Plan: Remains asymptomatic (9) Thrombocytosis: Code(s): D75.839 - Thrombocytosis, unspecified Status: Acute Assessment and Plan: Worrisome for underlying inflammatory or neoplastic process. Check stool for occult blood. Encourage up-to-date cancer screening. (10) DVT prophylaxis: Code(s): Z29.9 - Encounter for prophylactic measures, unspecified Status: Acute Assessment and Plan: Lovenox Subjective Date/time seen: 08/07/21 18:18 Interval history: 08/07. Denied dizziness. Walked around the unit several times with physical therapy. Appetite good. Still has Jain catheter in due to urinary retention after Cardura was discontinued. Is willing to undergo voiding trial today. 08/07: Reviewed hx again with patient and spouse at bedside. Chronic narcotic use due to left posterior thigh pain. History of surgery to reattached a torn hamstring tendon at the pelvic insertion site. Chronic aching pain persisted after the surgery. Pain is moderate to severe and worse with sitting. Actually is better when he gets up and moves about. Has tried gabapentin. Unable to tolerate Lyrica. Thinks he might have tried CBT but he is not certain. has a long list of things that didn
[2021-08-07] MEDS: MELATONIN 5 MG TABLET 10 MG PO (20:12)
[2021-08-07] MEDS: ESCITALOPRAM OXALATE 10 MG TABLET PO (20:12)
[2021-08-07] MEDS: LOSARTAN POTASSIUM 25 MG TABLET PO (20:12)
[2021-08-08] VITALS (10 sets, daily range): BP systolic 137–185; BP diastolic 61–87; PULSE 49–88; RESP 18–20; TEMP 36.3–36.9; O2SAT 97–100
[2021-08-08 07:41] LABS: Adrenocorticotropic Hormone <5 pg/mL (6-50)
[2021-08-08] MEDS: ASPIRIN 81 MG ENTERIC TABLET PO (08:51)
[2021-08-08] MEDS: ENOXAPARIN 40 MG/0.4 ML SYRINGE SUB-Q (08:51)
--- NOTE | 2021-08-08 14:02 | PM.DS ---
DS: Admitting Diagnosis Discharge Date 08/08/21 Admitting Diagnosis Weakness, dizziness and chest pain DS: Discharge Diagnosis Discharge Diagnosis (1) Orthostatic hypotension: Code(s): I95.1 - Orthostatic hypotension Status: Acute Assessment and Plan: Patient having pre-syncope symptoms 2nd to orthostatic HoTN. Suspect related to recent medication changes. The duloxetine and Seroquel both cause HoTN and these were stopped. Hydroxyzine dose decreased and made prn. Tramadol causes orthostatic HoTN and adrenal insuff and this was stopped. TSH normal. Cortisol level low and Cortisol stim test showing normal response. Possibly 2nd adrenal insufficiency and ACTH<5. Treated with Dank hose and IV fluids. We added hydrocortisone but this was held when his BP improved. Also felt symptoms related to chronic narcotic use. ACTH level is low and may be suppressed due to chronic narcotic use. BP improved and losartan added. Still orthostatic with 185/72 lying, 161/78 sitting and 137/64 standing. (2) BPH loc w urin obs/LUTS: Code(s): N40.1 - Benign prostatic hyperplasia with lower urinary tract symptoms Status: Acute Assessment and Plan: Patient had difficulty urinating. Pratts realted to bedrest and being off of his doxazosin. He had a voiding trial after reduction of narcotics and anticholinergics. He was able to void without problems but does have frequency. No dysuria hematuria. (3) Chest pain: Qualifiers: Chest pain type: other chest pain Qualified Code(s): R07.89 - Other chest pain Code(s): R07.9 - Chest pain, unspecified Status: Acute Assessment and Plan: Chest pain is atypical in nature. Pratts related to his anxiety and/or orthostatic hypotension causing cardiac strain. EKG reviewed showing no acute findings with QTc of 397. Troponin negative x3. Tele showing bradycardia but no acute dysrhythmas. LDL 68. Echo showing EF 60-65% with Grade I diastolic dysfunction. Cards consulted and appreciate their input. (4) Pre-syncope: Code(s): R55 - Syncope and collapse Status: Acute Assessment and Plan: Patient with weakness and lightheadedness from standing related to orthostatic hypotension from his medications. As above. (5) Hypertension: Qualifiers: Hypertension type: essential hypertension Qualified Code(s): I10 - Essential (primary) hypertension Code(s): I10 - Essential (primary) hypertension Status: Acute Assessment and Plan: Blood pressure elevated on admission and is elevated at times but also with orthostatic vital signs. He was on Norvasc and Cardura for a long time without issue but these were held. Orthostatic BP has improved and able to start Losartan. As above. (6) Chronic, continuous use of opioids: Code(s): F11.90 - Opioid use, unspecified, uncomplicated Status: Acute Assessment and Plan: On Morphine prn but takes regularly so we resumed so as to prevent withdrawal. He was transitioned to [place]. 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 Patient was on Seroquel, Lexapro, Cymbalta and hydroxyzine. He also takes Klonopin at night which is more of a chronic medication. As above. Mood stable with the above medication changes. (8) Bradycardia: Code(s): R00.1 - Bradycardia, unspecified Status: Acute Assessment and Plan: Was bradycardic to 40 range while sleeping but resolved. He remained asymptomatic (9) Thrombocytosis: Code(s): D75.839 - Thrombocytosis, unspecified Status: Acute Assessment and Plan: Worrisome for underlying inflammatory or neoplastic process. Stool for occult blood was negative. He was encouraged to r
[2021-08-10 05:00] LABS: FSH 3.3 mIU/mL (1.6-8.0); LH 0.6 mIU/mL (1.6-15.2); Prolactin 11.9 ng/mL (***)
--- NOTE | 2021-08-10 10:39 | PC.NURSE ---
FSH WNL at 3.3 LH low at 0.6 Prolactin WNL at 11.9 Dr[address] Neil gutierrez.
[2021-08-11 14:08] LABS: PRA 0.11 ng/mL/h (0.25-5.82)
[2021-08-14 14:35] LABS: Metanephrine, Free <25 pg/mL (<=57); Normetanephrine, Free <25 pg/mL (<=148); Total, Free (MN + NMN) <50 pg/mL (<=205)
--- NOTE | 2021-08-17 12:46 | PC.NURSE ---
Aldosterone WNL Metanephrine WNL Renin activity unable to calculate. Dr. Trejo aware.
== END 2021-08-08 15:40 | disposition home or self-care (01) | DRG 312 ==
LOC: ANHED 19:21 → ANH2MED 20:05
PROVIDERS: Emergency Medicine; Internal Medicine; Admitting Provider Internal Medicine; Emergency Provider Emergency Medicine; PCP Internal Medicine; Visit Provider Internal Medicine
DX: I95.1 Orthostatic hypotension (principal); N40.1 Benign prostatic hyperplasia with lower urinary tract symptoms; R35.0 Frequency of micturition; R07.89 Other chest pain; I10 Essential (primary) hypertension; R00.1 Bradycardia, unspecified; D75.839 Thrombocytosis, unspecified; F41.9 Anxiety disorder, unspecified; M19.90 Unspecified osteoarthritis, unspecified site; M70.72 Other bursitis of hip, left hip; F06.32 Mood disorder due to known physiological condition with major depressive-like episode; F11.90 Opioid use, unspecified, uncomplicated; Z66 Do not resuscitate; Z87.442 Personal history of urinary calculi; Z85.828 Personal history of other malignant neoplasm of skin
CPT/HCPCS: 36415; 70450; 71046; 80048; 80053; 80061; 82024; 82088; 82274; 82533; 82607; 82746; 83001; 83002; 83690; 83735; 83835; 84146; 84244; 84443; 84484; 85025; 85027; 85610; 85730; 86140; 86592; 93005; 93306; 94762; 96372; 97110; 97116; 97161; 97165; 97530; 97535; 99285; A9270; G0378; J0834; J1650; J7030

== ENCOUNTER 2021-08-12 14:31 | Outpatient (CLI) | payer MEDICARE, SELFPAY ==
[2021-08-12 16:32] LABS: Add Urine Microscopic? YES; Appearance Urine Clear (Clear); Bilirubin Urine 1+ (Negative); Blood Urine Negative (Negative); Color Urine Yellow (Yellow); Glucose Urine UA Negative (Negative); Ketones Urine Negative (Negative); Leukocyte Esterase Ur Negative LEU/UL (Negative); Nitrate Urine Negative (Negative); Protein Urine 2+ mg/dL (Negative); Specific Grav Ur >= 1.030 (1.001-1.035); Urobilinogen Urine 0.2 mg/dL (<2.0); pH Urine 5.5 (5.0-9.0)
[2021-08-12 16:48] LABS: Mucus Urine Heavy /lpf; RBC Urine 0-2 /hpf (0-2); Squamous Epithelial Cell Urine Rare /hpf (Few); WBC Urine 0-3 /hpf
== END 2021-08-12 14:32 | disposition home or self-care (01) ==
LOC: ANHLAB 14:35
PROVIDERS: PCP Internal Medicine; Visit Provider Clinical Nurse Specialist
DX: R39.11 Hesitancy of micturition (principal)
CPT/HCPCS: 81001

== ENCOUNTER 2021-08-18 07:59 | Outpatient (CLI) | payer MEDICARE, SELFPAY ==
[2021-08-23 21:27] LABS: Adrenocorticotropic Hormone 18 pg/mL (6-50)
== END 2021-08-18 08:00 | disposition home or self-care (01) ==
LOC: ANHLAB 08:05
PROVIDERS: PCP Internal Medicine; Visit Provider Internal Medicine
DX: E27.40 Unspecified adrenocortical insufficiency (principal)
CPT/HCPCS: 36415; 82024; 82533

== ENCOUNTER → 2021-09-13 10:21 | Outpatient (CLI) | payer MEDICARE, SELFPAY ==
--- NOTE | ~2021-09-13 | XR_ITS ---
EXAMINATION: XR abdomen/kub 1V INDICATION: Calculus of the kidney TECHNIQUE: Supine views of the abdomen were obtained on 2 radiographs. COMPARISON: 01/13/2019 FINDINGS: A 3 mm stone projects in the upper pole of the right kidney. Phleboliths are noted in the p joseph. There has been interval right sacroiliac fusion and fusion of the pubic symphysis which somewh at obscures visualization of the pelvis. No additional urolithiasis is identified. The lung bases are clear. The bowel gas pattern is normal. IMPRESSION: 1. 3 mm stone of the right kidney. Reviewed, dictated and finalized at location A.
== END ==
PROVIDERS: PCP Internal Medicine; Visit Provider Urology
DX: N20.0 Calculus of kidney (principal)
CPT/HCPCS: 74018

== ENCOUNTER 2022-02-06 12:32 | Outpatient (CLI) | payer MEDICARE, SELFPAY ==
[2022-02-06 19:25] LABS: Alanine Aminotransferase 19 U/L (6-50); Albumin Level 4.3 g/dL (3.5-5.1); Alkaline Phosphatase 57 U/L (38-126); Anion Gap 11 mmol/L (8-16); Aspartate Amino Transferase 23 U/L (17-59); Bilirubin,Total 1.2 mg/dL (0.2-1.3); Blood Urea Nitrogen 23 mg/dL (9-20); Carbon Dioxide 26 mmol/L (22-30); Chloride 103 mmol/L (98-107); Estimated Glomerular Filt Rate 50; Glucose 99 mg/dL (65-110); Potassium 4.7 mmol/L (3.4-5.0); Sodium 140 mmol/L (137-145)
[2022-02-06 19:50] LABS: Prostate Specific Antigen 2.6 ng/mL (< OR = 4.0)
[2022-02-06 20:02] LABS: Basophils Absolute Auto 0.1 K/mm3 (0.0-0.1); Basophils Percent Auto 0.7 % (0.2-1.2); Eosinophils Absolute Auto 0.1 K/mm3 (0-0.3); Eosinophils Percent Auto 1.1 % (0-4.4); Hematocrit 46.5 % (42.0-52.0); Hemoglobin 14.8 g/dL (14.0-18.0); Immature Granulocyte Absolute 0.15 K/mm3 (0.00-0.031); Immature Granulocyte Percent A 1.3 % (0-0.5); Lymphocytes Absolute Auto 1.65 K/mm3 (0.9-3.2); Lymphocytes Percent Auto 14.4 % (18.3-44.2); Mean Corpuscular HGB Conc 31.8 g/dl (32-36); Mean Corpuscular Volume 91.2 fl (80-100); Monocytes Absolute Auto 0.9 K/mm3 (0.1-0.6); Monocytes Percent Auto 7.9 % (2.6-8.5); Neutrophils Absolute Auto 8.5 K/mm3 (1.3-6.7); Neutrophils Percent Auto 74.6 % (45.5-73.1); Platelet Count Result 667 k/mm3 (150-375); Red Cell Distribution Width 12.6 % (11.5-14.5); White Blood Count 11.4 K/mm3 (4.5-10.0)
[2022-02-10 10:17] LABS: Testosterone Free 56.1 pg/mL (30.0-135.0); Testosterone Total 379 ng/dL (250-1100)
== END 2022-02-06 12:33 | disposition home or self-care (01) ==
LOC: ANHGOSHLAB 12:38
PROVIDERS: PCP Internal Medicine; Visit Provider Internal Medicine
DX: S22.49XA Multiple fractures of ribs, unspecified side, initial encounter for closed fracture (principal); Z79.890 Hormone replacement therapy; D75.839 Thrombocytosis, unspecified; F11.90 Opioid use, unspecified, uncomplicated; N40.1 Benign prostatic hyperplasia with lower urinary tract symptoms; X58.XXXA Exposure to other specified factors, initial encounter
CPT/HCPCS: 36415; 80053; 84153; 84402; 84403; 85025

== ENCOUNTER 2022-02-14 13:51 | Outpatient (CLI) | payer MEDICARE, SELFPAY ==
[2022-02-14 20:13] LABS: Anion Gap 12 mmol/L (8-16); Blood Urea Nitrogen 26 mg/dL (9-20); Carbon Dioxide 27 mmol/L (22-30); Chloride 100 mmol/L (98-107); Estimated Glomerular Filt Rate 60; Glucose 86 mg/dL (65-110); Sodium 139 mmol/L (137-145)
== END 2022-02-14 13:52 | disposition home or self-care (01) ==
LOC: ANHGOSHLAB 13:53
PROVIDERS: PCP Internal Medicine; Visit Provider Internal Medicine
DX: N28.9 Disorder of kidney and ureter, unspecified (principal)
CPT/HCPCS: 36415; 80048

== ENCOUNTER 2022-07-11 14:52 | Outpatient (CLI) | payer MEDICARE, SELFPAY ==
[2022-07-11 15:10] LABS: Basophils Absolute Auto 0.1 K/mm3 (0.0-0.1); Basophils Percent Auto 0.8 % (0.2-1.2); Eosinophils Absolute Auto 0.1 K/mm3 (0-0.3); Eosinophils Percent Auto 1.4 % (0-4.4); Hematocrit 47.2 % (42.0-52.0); Hemoglobin 15.6 g/dL (14.0-18.0); Immature Granulocyte Absolute 0.19 K/mm3 (0.00-0.031); Immature Granulocyte Percent A 1.9 % (0-0.5); Lymphocytes Percent Auto 19.8 % (18.3-44.2); Mean Corpuscular HGB Conc 33.1 g/dl (32-36); Mean Corpuscular Volume 87.7 fl (80-100); Mean Platelet Volume 9.5 fl (7.4-10.4); Monocytes Absolute Auto 0.7 K/mm3 (0.1-0.6); Monocytes Percent Auto 7.3 % (2.6-8.5); Neutrophils Percent Auto 68.8 % (45.5-73.1); Platelet Count Result 682 k/mm3 (150-375); Red Blood Count 5.38 M/mm3 (4.6-6.20); Red Cell Distribution Width 12.4 % (11.5-14.5); White Blood Count 10.1 K/mm3 (4.5-10.0)
== END 2022-07-11 14:53 | disposition home or self-care (01) ==
LOC: ANHLAB 14:54
PROVIDERS: PCP Internal Medicine; Visit Provider Internal Medicine Hematology & Oncology
DX: D75.838 Other thrombocytosis (principal)
CPT/HCPCS: 36415; 85025

== ENCOUNTER 2022-08-07 14:15 | Outpatient (CLI) | payer MEDICARE, SELFPAY ==
[2022-08-07 19:44] LABS: Basophils Absolute Auto 0.1 K/mm3 (0.0-0.1); Basophils Percent Auto 0.9 % (0.2-1.2); Eosinophils Absolute Auto 0.1 K/mm3 (0-0.3); Eosinophils Percent Auto 1.4 % (0-4.4); Hematocrit 48.2 % (42.0-52.0); Hemoglobin 15.4 g/dL (14.0-18.0); Immature Granulocyte Absolute 0.19 K/mm3 (0.00-0.031); Immature Granulocyte Percent A 1.9 % (0-0.5); Lymphocytes Percent Auto 20.1 % (18.3-44.2); Mean Corpuscular Hemoglobin 28.6 pg (26-34); Mean Corpuscular Volume 89.4 fl (80-100); Mean Platelet Volume 10.1 fl (7.4-10.4); Monocytes Absolute Auto 0.8 K/mm3 (0.1-0.6); Monocytes Percent Auto 7.9 % (2.6-8.5); Neutrophils Absolute Auto 6.8 K/mm3 (1.3-6.7); Neutrophils Percent Auto 67.8 % (45.5-73.1); Platelet Count Result 702 k/mm3 (150-375); Red Blood Count 5.39 M/mm3 (4.6-6.20); Red Cell Distribution Width 12.7 % (11.5-14.5)
[2022-08-07 20:39] LABS: Erythrocyte Sedimentation Rate 2 mm/hr (0-20)
[2022-08-07 21:35] LABS: Alanine Aminotransferase 29 U/L (6-50); Albumin Level 4.3 g/dL (3.5-5.1); Alkaline Phosphatase 61 U/L (38-126); Anion Gap 5 mmol/L (8-16); Aspartate Amino Transferase 48 U/L (17-59); Bilirubin,Total 1.4 mg/dL (0.2-1.3); Blood Urea Nitrogen 28 mg/dL (9-20); Carbon Dioxide 29 mmol/L (22-30); Chloride 106 mmol/L (98-107); Estimated Glomerular Filt Rate 55; Glucose 89 mg/dL (65-110); Potassium 4.9 mmol/L (3.4-5.0); Sodium 140 mmol/L (137-145)
[2022-08-07 22:01] LABS: Prostate Specific Antigen 2.8 ng/mL (< OR = 4.0)
[2022-08-07 22:37] LABS: Folic Acid 5.2 ng/mL (2.76->20)
[2022-08-12 15:17] LABS: Testosterone Free 71.8 pg/mL (30.0-135.0); Testosterone Total 528 ng/dL (250-1100)
== END 2022-08-07 14:16 | disposition home or self-care (01) ==
LOC: ANHGOSHLAB 14:17
PROVIDERS: PCP Internal Medicine; Visit Provider Internal Medicine
DX: R53.83 Other fatigue (principal); D75.829 Heparin-induced thrombocytopenia, unspecified; Z79.890 Hormone replacement therapy; R79.89 Other specified abnormal findings of blood chemistry; I10 Essential (primary) hypertension; N40.1 Benign prostatic hyperplasia with lower urinary tract symptoms
CPT/HCPCS: 36415; 80053; 82607; 82746; 84153; 84402; 84403; 84443; 85025; 85652

== ENCOUNTER 2022-08-24 08:48 | Outpatient (CLI) | payer MEDICARE, SELFPAY ==
--- NOTE | 2022-08-24 09:05 | EST_ITS ---
Patient Info Name: Paul Dutton Age: 71 years : 1950 Gender: Male Ht: 72 in Wt: 200 lbs BSA: 2.16 m2 HR: 62 bpm BP: 163 / 80 mmHg Heart Rhythm: Sinus Rhythm Exam Date: 08/24/2022 9:39 AM Exam Location: [facility] Patient Status: Outpatient Admit Date: 08/24/2022 Staff Ordering Physician: Dudley Moser DO Attending Provider: Dudley Moser DO Exercise Technologist: Nell Phipps CT Exercise Physician: Shreyas Russell DO Exam Type: CA stress test treadmill Study Info Indications R53.83 - Other fatigue A treadmill exercise stress test was performed. Summary 1. 1. Negative John exercise stress test for ischemic ST changes by ECG criteria. 2. 2. Good functional capacity, achieving 10 METs of workload. 3. 3. Baseline hypertension with hypertensive response to exercise. 4. 4. Mild chronotropic incompetence with maximum heart rate achieved at 123 bpm which is 82% MPHR for age group. 5. 5. Appropriate HR recovery at 1 minute post exercise. 6. 6. No imaging with stress testing. Protocol: [facility] Stress ECG Details Stage: REST Duration (min): 3 min : 52 sec Speed (mph): 0.0 Grade (%): 0 HR (bpm): 62 SBP (mmHg): 163 DBP (mmHg): 80 METS: --- Stage: REST Duration (min): 8 min : 2 sec Speed (mph): 0.0 Grade (%): 0 HR (bpm): 63 SBP (mmHg): 163 DBP (mmHg): 80 METS: --- Stage: STAGE 1 Duration (min): 1 min : 0 sec Speed (mph): 1.7 Grade (%): 10 HR (bpm): 72 SBP (mmHg): 163 DBP (mmHg): 80 METS: --- Stage: STAGE 1 Duration (min): 2 min : 0 sec Speed (mph): 1.7 Grade (%): 10 HR (bpm): 80 SBP (mmHg): 163 DBP (mmHg): 80 METS: --- Stage: STAGE 1 Duration (min): 3 min : 0 sec Speed (mph): 1.7 Grade (%): 10 HR (bpm): 86 SBP (mmHg): 185 DBP (mmHg): 62 METS: --- Stage: STAGE 2 Duration (min): 1 min : 0 sec Speed (mph): 2.5 Grade (%): 12 HR (bpm): 91 SBP (mmHg): 185 DBP (mmHg): 62 METS: --- Stage: STAGE 2 Duration (min): 2 min : 0 sec Speed (mph): 2.5 Grade (%): 12 HR (bpm): 98 SBP (mmHg): 182 DBP (mmHg): 57 METS: --- Stage: STAGE 2 Duration (min): 3 min : 0 sec Speed (mph): 2.5 Grade (%): 12 HR (bpm): 104 SBP (mmHg): 182 DBP (mmHg): 57 METS: --- Stage: STAGE 3 Duration (min): 1 min : 0 sec Speed (mph): 3.4 Grade (%): 14 HR (bpm): 111 SBP (mmHg): 204 DBP (mmHg): 60 METS: --- Stage: STAGE 3 Duration (min): 2 min : 0 sec Speed (mph): 3.4 Grade (%): 14 HR (bpm): 116 SBP (mmHg): 204 DBP (mmHg): 60 METS: --- Stage: STAGE 3 Duration (min): 3 min : 0 sec Speed (mph): 3.4 Grade (%): 14 HR (bpm): 121 SBP (mmHg): 208 DBP (mmHg): 66 METS: --- Stage: RECOVERY Duration (min): 0 min : 59 sec Speed (mph): 0.0 Grade (%): 0 HR (bpm): 121 SBP (mmHg): 208 DBP (mmHg): 66 METS: --- Stage: RECOVERY Duration (min): 1 min : 59 sec Speed (mph): 0.
== END 2022-08-24 08:49 | disposition home or self-care (01) ==
LOC: ANHCARD 08:49
PROVIDERS: PCP Internal Medicine; Visit Provider Internal Medicine
DX: R68.89 Other general symptoms and signs (principal)
CPT/HCPCS: 93017

== ENCOUNTER 2022-09-20 10:00 | Outpatient (CLI) | payer MEDICARE, SELFPAY ==
--- NOTE | 2022-09-20 11:34 | WPDPFTINT ---
PFT Procedure Performed PFT Procedure Performed Plethysmography (Lung Vol) Diffusing Cap (DLCO) Flow Vol Loop Spirometry w/o Bronchodil PFT Interpretation This is a pulmonary function test with spirometry, plethysmography and diffusing capacity. The test was performed and results interpreted in accordance with the 2019 and 2005 ATS/ERS Task Force guidelines respectively using the Global Lung Function Initiative-2012 reference equations. Patient demonstrated good effort and cooperation. Reproducibility criteria were met. The quality of the spirometry maneuver was Grade A. Findings: Spirometry: The contour the inspiratory and expiratory flow tracing are normal. The FVC is 4.02 L, 89% predicted. The FEV1 is 2.98 L, 88% predicted. The FEV1: FVC ratio 74%. Plethysmography: The total lung capacity 7.63 L, 103% predicted. The functional residual capacity is 4.35 L, 109% predicted. The residual volume is 3.61 L, 140% predicted. Diffusing capacity: The diffusing capacity unadjusted for hemoglobin and carboxyhemoglobin is 20.1, 75% predicted. The diffusing capacity adjusted for alveolar volume is 3.71, 98% predicted. Impression: The spirometry is normal without evidence of an obstructive abnormality. The total lung capacity is normal with an increased residual volume and an increased residual volume: TLC ratio consistent with hyperinflation. The diffusing capacity is normal. There are no prior studies for comparison
== END 2022-09-20 10:01 | disposition home or self-care (01) ==
PROVIDERS: PCP Internal Medicine; Visit Provider Internal Medicine
DX: R68.89 Other general symptoms and signs (principal); R06.00 Dyspnea, unspecified
CPT/HCPCS: 94375; 94726; 94729

== ENCOUNTER 2022-10-30 14:25 | Outpatient (CLI) | payer MEDICARE, SELFPAY ==
[2022-10-30 14:37] LABS: Basophils Absolute Auto 0.1 K/mm3 (0.0-0.1); Basophils Percent Auto 0.9 % (0.2-1.2); Eosinophils Absolute Auto 0.2 K/mm3 (0-0.3); Eosinophils Percent Auto 1.7 % (0-4.4); Hematocrit 47.8 % (42.0-52.0); Hemoglobin 15.8 g/dL (14.0-18.0); Immature Granulocyte Absolute 0.29 K/mm3 (0.00-0.031); Immature Granulocyte Percent A 2.5 % (0-0.5); Lymphocytes Absolute Auto 2.65 K/mm3 (0.9-3.2); Lymphocytes Percent Auto 22.6 % (18.3-44.2); Mean Corpuscular HGB Conc 33.1 g/dl (32-36); Mean Corpuscular Hemoglobin 29.5 pg (26-34); Mean Corpuscular Volume 89.3 fl (80-100); Mean Platelet Volume 9.4 fl (7.4-10.4); Monocytes Percent Auto 8.9 % (2.6-8.5); Neutrophils Absolute Auto 7.4 K/mm3 (1.3-6.7); Neutrophils Percent Auto 63.4 % (45.5-73.1); Platelet Count Result 750 k/mm3 (150-375); Red Blood Count 5.35 M/mm3 (4.6-6.20); Red Cell Distribution Width 12.8 % (11.5-14.5); White Blood Count 11.7 K/mm3 (4.5-10.0)
== END 2022-10-30 14:26 | disposition home or self-care (01) ==
LOC: ANHLAB 14:28
PROVIDERS: PCP Internal Medicine; Visit Provider Internal Medicine Hematology & Oncology
DX: D75.838 Other thrombocytosis (principal)
CPT/HCPCS: 36415; 85025

== ENCOUNTER 2022-12-06 15:00 | Outpatient (CLI) | payer MEDICARE, SELFPAY ==
[2022-12-06 15:12] LABS: Hematocrit 47.2 % (42.0-52.0); Hemoglobin 15.6 g/dL (14.0-18.0); Mean Corpuscular HGB Conc 33.1 g/dl (32-36); Mean Corpuscular Hemoglobin 30.7 pg (26-34); Mean Corpuscular Volume 92.9 fl (80-100); Mean Platelet Volume 9.2 fl (7.4-10.4); Platelet Count Result 636 k/mm3 (150-375); Red Blood Count 5.08 M/mm3 (4.6-6.20); Red Cell Distribution Width 15.2 % (11.5-14.5); White Blood Count 11.2 K/mm3 (4.5-10.0)
[2022-12-06 16:36] LABS: Anion Gap 9 mmol/L (8-16); Blood Urea Nitrogen 25 mg/dL (9-20); Calcium 8.8 mg/dL (8.4-10.2); Carbon Dioxide 23 mmol/L (22-30); Chloride 106 mmol/L (98-107); Estimated Glomerular Filt Rate 60; Glucose 100 mg/dL (65-110); Potassium 4.2 mmol/L (3.4-5.0); Sodium 138 mmol/L (137-145)
== END 2022-12-06 15:01 | disposition home or self-care (01) ==
LOC: ANHLAB 15:03
PROVIDERS: PCP Internal Medicine; Visit Provider Internal Medicine Hematology & Oncology
DX: D75.838 Other thrombocytosis (principal)
CPT/HCPCS: 36415; 80048; 85027

== ENCOUNTER 2023-01-15 14:56 | Outpatient (CLI) | payer MEDICARE, SELFPAY ==
[2023-01-15 15:09] LABS: Basophils Absolute Auto 0.1 K/mm3 (0.0-0.1); Basophils Percent Auto 0.6 % (0.2-1.2); Eosinophils Absolute Auto 0.1 K/mm3 (0-0.3); Eosinophils Percent Auto 1.2 % (0-4.4); Hematocrit 45.8 % (42.0-52.0); Hemoglobin 15.6 g/dL (14.0-18.0); Immature Granulocyte Absolute 0.21 K/mm3 (0.00-0.031); Lymphocytes Absolute Auto 2.04 K/mm3 (0.9-3.2); Lymphocytes Percent Auto 19.8 % (18.3-44.2); Mean Corpuscular HGB Conc 34.1 g/dl (32-36); Mean Corpuscular Hemoglobin 32.4 pg (26-34); Mean Platelet Volume 9.3 fl (7.4-10.4); Monocytes Absolute Auto 0.9 K/mm3 (0.1-0.6); Neutrophils Absolute Auto 6.9 K/mm3 (1.3-6.7); Neutrophils Percent Auto 67.4 % (45.5-73.1); Platelet Count Result 580 k/mm3 (150-375); Red Blood Count 4.82 M/mm3 (4.6-6.20); Red Cell Distribution Width 15.9 % (11.5-14.5); White Blood Count 10.3 K/mm3 (4.5-10.0)
[2023-01-15 15:12] LABS: Blood Urea Nitrogen 22 mg/dL (8-26); Carbon Dioxide 26 mmol/L (22-30); Chloride 104 mmol/L (98-109); Estimated Glomerular Filt Rate 50; Glucose 89 mg/dL (70-105); Ionized Calcium (POC) 1.21 mmol/L (1.11-1.31); Potassium 3.9 mmol/L (3.5-4.9); Sodium 140 mmol/L (138-146)
== END 2023-01-15 14:57 | disposition home or self-care (01) ==
PROVIDERS: PCP Internal Medicine; Visit Provider Internal Medicine Hematology & Oncology
DX: D75.838 Other thrombocytosis (principal)
CPT/HCPCS: 36415; 80047; 85025

== ENCOUNTER 2023-02-27 14:08 | Outpatient (CLI) | payer MEDICARE, SELFPAY ==
[2023-02-27 14:21] LABS: Basophils Absolute Auto 0.1 K/mm3 (0.0-0.1); Basophils Percent Auto 0.7 % (0.2-1.2); Eosinophils Absolute Auto 0.1 K/mm3 (0-0.3); Hematocrit 45.3 % (42.0-52.0); Hemoglobin 15.3 g/dL (14.0-18.0); Immature Granulocyte Absolute 0.21 K/mm3 (0.00-0.031); Immature Granulocyte Percent A 2.3 % (0-0.5); Lymphocytes Percent Auto 20.8 % (18.3-44.2); Mean Corpuscular HGB Conc 33.8 g/dl (32-36); Mean Corpuscular Hemoglobin 33.8 pg (26-34); Mean Corpuscular Volume 100.2 fl (80-100); Mean Platelet Volume 9.3 fl (7.4-10.4); Monocytes Absolute Auto 0.8 K/mm3 (0.1-0.6); Neutrophils Percent Auto 66.2 % (45.5-73.1); Platelet Count Result 523 k/mm3 (150-375); Red Blood Count 4.52 M/mm3 (4.6-6.20); Red Cell Distribution Width 14.6 % (11.5-14.5); White Blood Count 9.1 K/mm3 (4.5-10.0)
[2023-02-27 14:24] LABS: Blood Urea Nitrogen 25 mg/dL (8-26); Carbon Dioxide 27 mmol/L (22-30); Chloride 105 mmol/L (98-109); Estimated Glomerular Filt Rate 46; Glucose 96 mg/dL (70-105); Ionized Calcium (POC) 1.19 mmol/L (1.11-1.31); Potassium 4.2 mmol/L (3.5-4.9); Sodium 141 mmol/L (138-146)
== END 2023-02-27 14:09 | disposition home or self-care (01) ==
LOC: ANHLAB 14:11
PROVIDERS: PCP Internal Medicine; Visit Provider Internal Medicine Hematology & Oncology
DX: D75.838 Other thrombocytosis (principal)
CPT/HCPCS: 36415; 80047; 85025

== ENCOUNTER 2023-04-11 13:34 | Outpatient (CLI) | payer MEDICARE, SELFPAY ==
[2023-04-11 13:51] LABS: Basophils Absolute Auto 0.1 K/mm3 (0.0-0.1); Basophils Percent Auto 0.6 % (0.2-1.2); Eosinophils Absolute Auto 0.1 K/mm3 (0-0.3); Eosinophils Percent Auto 0.9 % (0-4.4); Hematocrit 44.8 % (42.0-52.0); Hemoglobin 15.2 g/dL (14.0-18.0); Immature Granulocyte Absolute 0.11 K/mm3 (0.00-0.031); Immature Granulocyte Percent A 1.4 % (0-0.5); Lymphocytes Absolute Auto 1.74 K/mm3 (0.9-3.2); Lymphocytes Percent Auto 22.4 % (18.3-44.2); Mean Corpuscular HGB Conc 33.9 g/dl (32-36); Mean Corpuscular Hemoglobin 34.9 pg (26-34); Mean Platelet Volume 9.4 fl (7.4-10.4); Monocytes Absolute Auto 0.8 K/mm3 (0.1-0.6); Monocytes Percent Auto 9.8 % (2.6-8.5); Neutrophils Absolute Auto 5.1 K/mm3 (1.3-6.7); Neutrophils Percent Auto 64.9 % (45.5-73.1); Platelet Count Result 477 k/mm3 (150-375); Red Blood Count 4.35 M/mm3 (4.6-6.20); Red Cell Distribution Width 12.4 % (11.5-14.5); White Blood Count 7.8 K/mm3 (4.5-10.0)
[2023-04-11 13:57] LABS: Blood Urea Nitrogen 22 mg/dL (8-26); Carbon Dioxide 25 mmol/L (22-30); Chloride 103 mmol/L (98-109); Estimated Glomerular Filt Rate 46; Glucose 83 mg/dL (70-105); Ionized Calcium (POC) 1.18 mmol/L (1.11-1.31); Potassium 4.1 mmol/L (3.5-4.9); Sodium 140 mmol/L (138-146)
== END 2023-04-11 13:35 | disposition home or self-care (01) ==
LOC: ANHLAB 13:36
PROVIDERS: PCP Internal Medicine; Visit Provider Internal Medicine Hematology & Oncology
DX: D75.838 Other thrombocytosis (principal)
CPT/HCPCS: 36415; 80047; 85025

== ENCOUNTER 2023-06-12 13:25 | Outpatient (CLI) | payer MEDICARE, SELFPAY ==
[2023-06-12 13:38] LABS: Basophils Percent Auto 0.4 % (0.2-1.2); Eosinophils Percent Auto 0.4 % (0-4.4); Hematocrit 47.2 % (42.0-52.0); Hemoglobin 16.1 g/dL (14.0-18.0); Immature Granulocyte Absolute 0.13 K/mm3 (0.00-0.031); Immature Granulocyte Percent A 1.4 % (0-0.5); Lymphocytes Absolute Auto 1.92 K/mm3 (0.9-3.2); Lymphocytes Percent Auto 20.2 % (18.3-44.2); Mean Corpuscular HGB Conc 34.1 g/dl (32-36); Mean Corpuscular Hemoglobin 35.6 pg (26-34); Mean Corpuscular Volume 104.4 fl (80-100); Mean Platelet Volume 9.5 fl (7.4-10.4); Monocytes Absolute Auto 0.8 K/mm3 (0.1-0.6); Monocytes Percent Auto 8.4 % (2.6-8.5); Neutrophils Absolute Auto 6.6 K/mm3 (1.3-6.7); Neutrophils Percent Auto 69.2 % (45.5-73.1); Platelet Count Result 443 k/mm3 (150-375); Red Blood Count 4.52 M/mm3 (4.6-6.20); Red Cell Distribution Width 12.1 % (11.5-14.5); White Blood Count 9.5 K/mm3 (4.5-10.0)
[2023-06-12 13:47] LABS: Blood Urea Nitrogen 22 mg/dL (8-26); Carbon Dioxide 28 mmol/L (22-30); Chloride 105 mmol/L (98-109); Estimated Glomerular Filt Rate 50; Glucose 79 mg/dL (70-105); Ionized Calcium (POC) 1.15 mmol/L (1.11-1.31); Potassium 4.2 mmol/L (3.5-4.9); Sodium 140 mmol/L (138-146)
== END 2023-06-12 13:26 | disposition home or self-care (01) ==
LOC: ANHLAB 13:27
PROVIDERS: PCP Internal Medicine; Visit Provider Internal Medicine Hematology & Oncology
DX: D75.838 Other thrombocytosis (principal)
CPT/HCPCS: 36415; 80047; 85025

== ENCOUNTER 2023-09-12 12:54 | Outpatient (CLI) | payer MEDICARE, SELFPAY ==
[2023-09-12 13:06] LABS: Basophils Percent Auto 0.5 % (0.2-1.2); Eosinophils Absolute Auto 0.1 K/mm3 (0-0.3); Hematocrit 45.3 % (42.0-52.0); Hemoglobin 15.4 g/dL (14.0-18.0); Immature Granulocyte Absolute 0.15 K/mm3 (0.00-0.031); Immature Granulocyte Percent A 1.8 % (0-0.5); Lymphocytes Absolute Auto 1.63 K/mm3 (0.9-3.2); Lymphocytes Percent Auto 19.8 % (18.3-44.2); Mean Corpuscular Hemoglobin 35.5 pg (26-34); Mean Corpuscular Volume 104.4 fl (80-100); Mean Platelet Volume 9.5 fl (7.4-10.4); Monocytes Absolute Auto 0.6 K/mm3 (0.1-0.6); Monocytes Percent Auto 7.8 % (2.6-8.5); Neutrophils Absolute Auto 5.7 K/mm3 (1.3-6.7); Neutrophils Percent Auto 69.1 % (45.5-73.1); Platelet Count Result 508 k/mm3 (150-375); Red Blood Count 4.34 M/mm3 (4.6-6.20); Red Cell Distribution Width 11.9 % (11.5-14.5); White Blood Count 8.2 K/mm3 (4.5-10.0)
[2023-09-12 13:13] LABS: Blood Urea Nitrogen 24 mg/dL (8-26); Carbon Dioxide 30 mmol/L (22-30); Chloride 104 mmol/L (98-109); Estimated Glomerular Filt Rate 43; Glucose 98 mg/dL (70-105); Potassium 4.5 mmol/L (3.5-4.9); Sodium 140 mmol/L (138-146)
== END 2023-09-12 12:55 | disposition home or self-care (01) ==
LOC: ANHLAB 12:56
PROVIDERS: Nurse Practitioner Family; PCP Internal Medicine; Visit Provider Internal Medicine Hematology & Oncology
DX: D75.838 Other thrombocytosis (principal)
CPT/HCPCS: 36415; 80047; 85025

== ENCOUNTER 2023-12-10 13:53 | Outpatient (CLI) | payer MEDICARE, SELFPAY ==
[2023-12-10 14:07] LABS: Basophils Absolute Auto 0.1 K/mm3 (0.0-0.1); Basophils Percent Auto 0.6 % (0.2-1.2); Eosinophils Percent Auto 0.4 % (0-4.4); Hematocrit 47.5 % (42.0-52.0); Hemoglobin 15.8 g/dL (14.0-18.0); Immature Granulocyte Absolute 0.21 K/mm3 (0.00-0.031); Immature Granulocyte Percent A 2.2 % (0-0.5); Lymphocytes Absolute Auto 1.08 K/mm3 (0.9-3.2); Lymphocytes Percent Auto 11.2 % (18.3-44.2); Mean Corpuscular HGB Conc 33.3 g/dl (32-36); Mean Corpuscular Hemoglobin 34.5 pg (26-34); Mean Corpuscular Volume 103.7 fl (80-100); Mean Platelet Volume 9.3 fl (7.4-10.4); Monocytes Absolute Auto 0.7 K/mm3 (0.1-0.6); Monocytes Percent Auto 6.8 % (2.6-8.5); Neutrophils Absolute Auto 7.6 K/mm3 (1.3-6.7); Neutrophils Percent Auto 78.8 % (45.5-73.1); Platelet Count Result 605 k/mm3 (150-375); Red Blood Count 4.58 M/mm3 (4.6-6.20); Red Cell Distribution Width 11.7 % (11.5-14.5); White Blood Count 9.6 K/mm3 (4.5-10.0)
[2023-12-10 14:12] LABS: Blood Urea Nitrogen 21 mg/dL (8-26); Carbon Dioxide 29 mmol/L (22-30); Chloride 103 mmol/L (98-109); Estimated Glomerular Filt Rate 46; Glucose 143 mg/dL (70-105); Ionized Calcium (POC) 1.19 mmol/L (1.11-1.31); Potassium 3.9 mmol/L (3.5-4.9); Sodium 139 mmol/L (138-146)
== END 2023-12-10 13:54 | disposition home or self-care (01) ==
LOC: ANHLAB 13:56
PROVIDERS: PCP Internal Medicine; Visit Provider Internal Medicine Hematology & Oncology
DX: D75.838 Other thrombocytosis (principal)
CPT/HCPCS: 36415; 80047; 85025

== ENCOUNTER 2024-03-10 13:48 | Outpatient (CLI) | payer MEDICARE, SELFPAY ==
[2024-03-10 14:01] LABS: Basophils Absolute Auto 0.1 K/mm3 (0.0-0.1); Basophils Percent Auto 0.6 % (0.2-1.2); Eosinophils Absolute Auto 0.1 K/mm3 (0-0.3); Eosinophils Percent Auto 1.2 % (0-4.4); Hematocrit 48.7 % (42.0-52.0); Hemoglobin 16.5 g/dL (14.0-18.0); Immature Granulocyte Absolute 0.22 K/mm3 (0.00-0.031); Immature Granulocyte Percent A 2.2 % (0-0.5); Lymphocytes Absolute Auto 2.11 K/mm3 (0.9-3.2); Lymphocytes Percent Auto 21.2 % (18.3-44.2); Mean Corpuscular HGB Conc 33.9 g/dl (32-36); Mean Corpuscular Hemoglobin 34.5 pg (26-34); Mean Corpuscular Volume 101.9 fl (80-100); Mean Platelet Volume 9.4 fl (7.4-10.4); Monocytes Absolute Auto 1.1 K/mm3 (0.1-0.6); Monocytes Percent Auto 10.6 % (2.6-8.5); Neutrophils Absolute Auto 6.4 K/mm3 (1.3-6.7); Neutrophils Percent Auto 64.2 % (45.5-73.1); Platelet Count Result 580 k/mm3 (150-375); Red Blood Count 4.78 M/mm3 (4.6-6.20); Red Cell Distribution Width 12.2 % (11.5-14.5)
[2024-03-10 14:04] LABS: Blood Urea Nitrogen 22 mg/dL (8-26); Carbon Dioxide 28 mmol/L (22-30); Chloride 103 mmol/L (98-109); Estimated Glomerular Filt Rate 46; Glucose 73 mg/dL (70-105); Sodium 140 mmol/L (138-146)
== END 2024-03-10 13:49 | disposition home or self-care (01) ==
LOC: ANHLAB 13:49
PROVIDERS: PCP Internal Medicine; Visit Provider Internal Medicine Hematology & Oncology
DX: D75.838 Other thrombocytosis (principal)
CPT/HCPCS: 36415; 80047; 85025

== ENCOUNTER 2024-07-08 14:01 | Outpatient (CLI) | payer MEDICARE, SELFPAY ==
[2024-07-08 14:20] LABS: Basophils Percent Auto 0.4 % (0.2-1.2); Eosinophils Absolute Auto 0.1 K/mm3 (0-0.3); Eosinophils Percent Auto 0.9 % (0-4.4); Hemoglobin 16.5 g/dL (14.0-18.0); Immature Granulocyte Percent A 2.1 % (0-0.5); Lymphocytes Percent Auto 22.7 % (18.3-44.2); Mean Corpuscular HGB Conc 34.4 g/dl (32-36); Mean Corpuscular Hemoglobin 35.6 pg (26-34); Mean Corpuscular Volume 103.4 fl (80-100); Mean Platelet Volume 9.3 fl (7.4-10.4); Neutrophils Absolute Auto 6.2 K/mm3 (1.3-6.7); Neutrophils Percent Auto 63.9 % (45.5-73.1); Platelet Count Result 523 k/mm3 (150-375); Red Blood Count 4.64 M/mm3 (4.6-6.20); Red Cell Distribution Width 12.3 % (11.5-14.5); White Blood Count 9.7 K/mm3 (4.5-10.0)
[2024-07-08 14:23] LABS: Blood Urea Nitrogen 21 mg/dL (8-26); Carbon Dioxide 26 mmol/L (22-30); Chloride 104 mmol/L (98-109); Estimated Glomerular Filt Rate 18; Glucose 81 mg/dL (70-105); Ionized Calcium (POC) 1.19 mmol/L (1.11-1.31); Potassium 4.6 mmol/L (3.5-4.9); Sodium 139 mmol/L (138-146)
--- OUTSIDE RECORDS SUMMARY | 2024-07-08 15:09 | XMS_ITS | Clinical Summary ---
Author Organization [facility] Address [address] [place] [address] Care Team Providers Care Automotive Service Writer Name Role Phone Matty Gallegos MD Unavailable [phone] Matty Gallegos MD Primary Care Provider [phone] Source Comments [facility],non-owned Affiliates and Associated Physician Practices is amultiple site organization consisting of ambulatory clinics and hospital sitesin [place], [place], [place]. This disclosure is being madepursuant to the Care Everywhere program and may not contain all information available regarding this patient. Last updated 17.[facility] Allergies No known active allergies Medications * Be aware that medications may not be up to date on this document. Alwaysverify current medications with the patient. clonazePAM (KLONOPIN) 1 MG tablet at bedtime. Active Other TESTOSTERONE INJECTIONS MONTHLY Active gabapentin (NEURONTIN) 300 MG capsule Take 300 mg by mouth 4 times daily Active amLODIPine (NORVASC) 10 MG tablet Take 10 mg by mouth once daily Active doxazosin (CARDURA) 8 MG tablet Take 8 mg by mouth at bedtime Active testosterone cypionate (DEPO-TESTOTERO NE) 200 MG/ML injection Inject 400 mg into muscle every 28 days Active Active Problems Problem Noted Date Diagnosed Date Follow-up examination, following other surgery 1 04/09/2010 Spinal stenosis, lumbar stuart on, with neurogenic claudication 06/21/2010 HTN (hypertension) 05/02/2010 Social History Tobacco Use Types Packs/Day Years Used Date Smoking Tobacco: Former Smokeless Tobacco: Never Alcohol Use Standard Drinks/Week Comments No 0 (1 standard drink = 0.6 oz pur e alcohol) Sex and Gender Information Value Date Recorded Sex Assigned at Not on file 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 Gender Identity Not on file Sexual Orientation Not on file Last Filed Vital Signs Vital Sign Reading Time Taken Comments Blood Pressure 159/80 07/04/2017 10:32 AM CDT Pulse 75 07/04/2017 10:32 AM CDT Temperature 36.6 C (97.9 F) 01/17/2011 12:21 PM CDT Respiratory Rate 16 07/04/2017 10:32 AM CDT Oxygen Saturation 96% 07/04/2017 10:32 AM CDT Inhaled Oxygen Concentration - - Weight 83.9 kg (185 lb) 12/14/2015 2:09 PM CDT Height 182.9 cm (6') 12/14/2015 2:09 PM CDT Body Mass Index 25.09 12/14/2015 2:09 PM CDT Plan of Treatment Health Maintenance Due Date Last Done Comments COLOGUARD (AGES 45-75) - COL ON CA SCREENING 1950 COLON MONITORING 1950 COLONOSCOPY - COLON CA SCREENING 1950 CT COLONOGRAPHY - COLON CA SCREENING 1950 Colorectal Cancer Screening 1950 FIT - COLON CA SCREENING 1950 FLEX SIG - COLON CA SCREENING 1950 LIPID TESTING 1950 HEPATITIS C SCREENING 08/31/1969 DTAP/TDAP/TD VACCINES (1 - Tdap) 09/04/1970 PNEUMOCOCCAL VACCINE 50+ (1 of 1 - PCV) 09/04/2001 ZOSTER VACCINE (1 of 2) 09/04/2001 AAA SCREENING 09/04/2016 COVID-19 VACCINE (1 - 2023-2 5 season) 2023 DEPRESSION SCREENING 03/26/2024 INFLUENZA VACCINE (Season Ended) 2024 Respiratory Syncytial Virus (RSV) Vaccine Pt: or over 60 yrs (1 - 1-dose 75+ series) 09/04/2026 HEPATITIS B VACCINE Aged Out No longe r eligible based on patient's age to complete this topic HIB VACCINE Aged Out No longer eligi ble based on patient's age to complete this topic HPV VACCINE Aged Out No longer eligi ble based on patient's age to complete this topic MENINGOCOCCAL (Group B) VACC INE SHARED DECISION-MAKING Aged Out No longer eligibl e based on patient's age to complete this topic MENINGOCOCCAL GROUPS A/C/Y/W VACCINE Aged Out No longer eligible b ased on patient's age to complete this topic Insurance MEDICARE [facility] MEDICARE Advance Directives * FULL RESUSCITATION (Latest Code Status on File) Date Activated Date Inactivated Comments 01/17/2011 11:48 AM 01/18/2011 3:25 AM Care Teams Automotive Service Writer Relationship Specialty Start Date End Date Matty Gallegos MD [address] [place] [place] [address] PCP - General 11/17/10 Matty Gallegos MD Family Medicine 05/02/10
--- OUTSIDE RECORDS SUMMARY | 2024-07-08 15:09 | XMS_ITS | Data Portability ---
Author Organization [facility] Address [address] [place] [address] [place] [address] Assessment No assessment recorded. Plan of Treatment Reminders Order Date Submit Date Provider Last Modified By Organization Details Last Modified Time Details Appointments None record ed. Lab None record ed. Referral None record ed. Procedures None record ed. Surgeries None record ed. Imaging None record ed. Medication Orders None record ed. Patient TargetsNo targets recorded. Patient InstructionsNo instructions recorded. Reason for Referral None Reported. Medical Equipment None Reported. Vitals None Recorded Social History None recorded. Functional Status None recorded. Mental Status None recorded. Family History Nothing Reported. Medical History No medical history recorded. Immunizations Vaccine Type Date Status Note Provider Nam e and Address Organization Details Recorded Time COVID-19, mRNA, LNP-S, PF, 100 mcg/0.5mL dose or 50 mcg/0.25mL dose 05/12/2020 completed [facility] [place] [facility] 05/12/2020 16:28:00 COVID-19, mRNA, LNP-S, PF, 100 mcg/0.5mL dose or 50 mcg/0.25mL dose 06/09/2020 completed [facility] [place] [facility] 06/09/2020 15:06:11 Past Encounters Encounter ID Performer Location Encounter Start Date Encounter Closed Date Diagnosis/Indication Diagnosis SNOMED-CT Code Diagnosis ICD10 Code Diagnosis Note [id number] RAFI [address] [place] [id number] 05/12/2020 14:46:18 05/13/2020 07:18:00 Administration of SARS-CoV-2 antigen vaccine [id number] Z23 [id number] RAFI [address] 14 IM 4 [facility] [place] [id number] 06/09/2020 14:41:13 06/10/2020 14:21:28 Administration of SARS-CoV-2 antigen vaccine [id number] Z23 Health Concerns Section Related Observation LastModified by Organization Detai ls LastModified Time None Recorded Concern Status LastModified by Organization Details LastModified Time None Recorded Advance Directives Directive None Recorded Payers Encounter Date Sequence Insurance Name Policy Number Policy Geronimo Covered Member ID Geronimo Member ID Guarantor Name 05/12/2020 1 [place] Paul Dutton [id number] Paul Dutton 06/09/2020 1 [place] Paul Dutton [id number] Paul Dutton
--- OUTSIDE RECORDS SUMMARY | 2024-07-08 15:09 | XMS_ITS | Clinical Summary ---
Author Organization [place] [id number] Address [address] [place] [address] Care Team Providers Care Jointer Submarine Cable Name Role Phone Kamran Pink MD Unavailable Dudley Moser DO Primary Care Provider [phone] Allergies Active Allergy Reactions Criticality Noted Date Comments Ketamine Hallucinations Medium 10/08/2020 Medications amLODIPine (NORVASC) 10 mg tabletIndicatio ns:hypertension Take 1 tablet (10 mg total) by mouth every morning 9 Active doxazosin (CARDURA) 8 mg tabletIndicatio ns:hypertension Take 1 tablet (8 mg total) by mouth nightly Active testosterone cypionate (DEPO-TESTOTERO NE) 200 mg/mL injectionIndica tions:Androgen Deficiency Inject 2 mL (400 mg total) into the muscle as instructed once a week Takes on Tuesdays Active BD Luer-Lisa Syringe 3 mL 23 gauge x 1 1/2 syringe USE TO INJECT TESTOSTERONE 1 Active morphine (MSIR) 15 mg tablet every 8 (eight) hours as needed 0 1 Active pregabalin (LYRICA) 50 mg capsuleIndicati ons:Neuropathic Pain Take 1 capsule (50 mg total) by mouth 2 (two) times a day 60 capsule 2 2 Active Active Problems Problem Noted Date Diagnosed Date Neuralgia 03/31/2021 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 Had 4th infusion of simponi aria and started prednisone 5mg daily without any relief of pain complaints. Failed meloxicam, etodolac, Celebrex, and gabapentin. Failed spinal stimulator. Failed PT and PRP injections. Had steroid injection over the ischial tuberosity with brief immediate relief until the anesthetic wore off. Denies personal of FHx of psoriasis or IBD. No obvious peripheral synovitis or tenderness noted on exam today. Prior MRI revealed tendonitis of hamstring origins and bilateral trochanteric bursitis. Symptoms remain suspicious for ischial bursitis vs tendonitis vs mechanical pian. Will increase prednisone 20mg daily then decrease by 5mg every 4 days until off. Patient will call if his pain improves and we will consider a slow taper of prednisone. If no benefit, then will need to consider f/u with pain management or ortho spine as his symptoms only occurred after he stopped pain medication. Follow up in 6 weeks. Sooner if needed. Seen with Dr. Pink. Assessment & Plan (01/19/2020 4:06 PM CDT): Patient presents with a prior diagnosis of ankylosing spondylitis based on a previously positive HLA-B27 and left buttock pain worse with prolonged sitting that is alleviated with systemic steroids. Failed meloxicam, etodolac, Celebrex, and gabapentin. Failed spinal stimulator. Failed PT and PRP injections. Had steroid injection over the ischial tuberosity with brief immediate relief until the anesthetic wore off. Denies personal of FHx of psoriasis or IBD. No obvious peripheral synovitis or tenderness noted on exam today. Prior MRI revealed tendonitis of hamstring origins and bilateral trochanteric bursitis. Symptoms and exam are suspicious for ischial bursitis vs tendonitis vs mechanical pian. Will order appropriate serologies to further evaluate. Start prednisone 5mg daily. Based on response, will consdier slowly taper off in the future. Follow up in 6 weeks after his next simponi aria infusion. Sooner if needed. Seen with Dr. Pink. Ankylosing spondylitis 12/08/2019 Closed fracture of pelvis 06/25/2019 Scalp laceration 05/21/2019 Multiple rib fractures 05/18/2019 Lumbar transverse process fracture 05/18/2019 Follow-up examination, following other surgery 1 04/09/2010 Spinal stenosis, lumbar stuart on, with neurogenic claudication 06/21/2010 HTN (hypertension) 05/02/2010 Painful respiration Immunizations Immunization Administration Dates Next Due Influenza, Quad, Adjuvantated, Intramuscular ,12/09/2019 Influenza, Quadrivalent, Marissa l Culture-based MDCK, Antibiotic Free, Intramuscular 01/07/2018 Influenza, Quadrivalent, Split, Intramuscular Influenza, Unspecified 12/24/2018 Moderna SARS-CoV-2 Monovalent Vaccination (12+ Y RS) 06/09/2020,05/12/2020 TD Preservative Free 03/26/2001 Tdap 05/17/2019,11/28/2011 Surgical History Surgery Date Site/Laterality Comments BACK SURGERY 2013, 2017 x2, decompression SHOULDER SURGERY 03/26/1994 - 03/25/1995 Left rotator cuff repair ELBOW SURGERY Bilateral nerve OTHER SURGICAL HISTORY 04/26/2019 - 05/24/2019 Right ORIF pelvis with iliac screw CARPAL TUNNEL RELEASE Bilateral CERVICAL SPINE SURGERY COLONOSCOPY 03/26/2006 - 03/25/2007 REPAIR QUADRICEPS / HAMSTRING MUSCLE 10/18/2020 Left Medical History Medical History Date Comments Hypertension Obesity Kidney stone PONV (postoperative nausea and vomiting) Low back pain Hip pain, chronic, left Family History Medical History Relation Name Comments Anesthesia problems Neg Hx Relation Name Status Comments Father Mother Social History Tobacco Use Types Packs/Day Years Used Date Smoking Tobacco: Never Smokeless Tobacco: Never Alcohol Use Standard Drinks/Week Comments Yes 0 (1 standard drink = 0.6 oz pur e alcohol) occasional AUDIT-C Answer Date Recorded Q1: How often do you have a drink containing alc ohol? Monthly or less 05/17/2021 Q2: How many drinks containi ng alcohol do you have on a typical day when you are drinking? 1 or 2 05/17/2021 Q3: How often do you have si x or more drinks on one occasion? Weekly 05/17/2021 Sex and Gender Information Value Date Recorded Sex Assigned at Not on file Legal Sex Male 6:52 AM MOLDING ASSOCIATE Gender Identity Not on file Sexual Orientation Not on file Occupation Industry Job Start Date Job End Date Retired Not on file Not on file Not on file Obstetrics History Last Filed Vital Signs Vital Sign Reading Time Taken Comments Blood Pressure 133/78 06/14/2023 2:12 PM CDT Pulse 87 06/14/2023 2:12 PM CDT Temperature 36.4 C (97.5 F) 05/17/2021 12:54 PM MOLDING ASSOCIATE Respiratory Rate 14 05/17/2021 2:06 PM MOLDING ASSOCIATE Oxygen Saturation 97% 05/17/2021 2:06 PM MOLDING ASSOCIATE Inhaled Oxygen Concentration - - Weight 87.5 kg (193 lb) 06/14/2023 2:12 PM CDT Height 179.1 cm (5' 10.5 ) 06/14/2023 2:12 PM CD T Body Mass Index 27.3 06/14/2023 2:12 PM CDT Plan of Treatment Health Maintenance Due Date Last Done Comments Colon Cancer Screening-Colonoscopy 1950 Depression Screening 1950 Hepatitis B Screening 09/04/1969 Pneumococcal vaccine 65+ (1 of 1 - PCV) 09/04/2001 Zoster Vaccine (1 of 2) 09/04/2001 Abdominal Aortic Aneurysm (A AA) Screen 09/04/2016 Well Visit 65+ 09/04/2016 Fall Risk Assessment 10/18/2021 10/18/2020 Covid-19 Vaccine (4 - 2023-2 5 season) 2023 01/14/2021, 06/09/2020, 05/12/2020 Influenza Vaccine (Season Ended) 2024 12/29/2020, 12/09/2019, 12/09/2019, Additional history exists DTaP/Tdap/Td Vaccine (3 - Td or Tdap) 05/17/2029 05/17/2019, 11/28/2011, 03/26/2001 Hepatitis C Screening Completed 01/16/2007 Goals Goal Patient Goal Type Associated Problems Recent Progress Patient-Stated? Author CCM Chronic Pain Care Plan Chronic Care Management Improving( 12:58 PM MOLDING ASSOCIATE) Claudia Gonzáles RN Note: Problem: Chronic Pain Goals: 1. Minimize further functional decline 2. Maximize quality of life 3. Control pain Strategies: - Activity/exercise program recommendation - Conservative stepwise pain medicine strategy with multi-disciplinary approach - Recommend healthy lifestyle strategies and compensatory methods as needed Medical Devices Implanted Type Area Script Supervisor Device Identifier Shelf Expiration Date Model / Serial / Lot Synthes 245.876 78mm 6 Hole Low Profile Curved Reconstruction Pelvic 108mm Radius - [id number] Implanted:Qty: 1 on 05/19/2019 by Morteza Narayanan MD at [facility] Plate Pelvis Synthes I 245.876 / / [employer] [id number] 7mm 8mm 100mm Cannulated Self Tap Self Drill Full Thread Hexagon - [id number] Implanted:Qty: 1 on 05/19/2019 by Morteza Narayanan MD at [facility] Right: Pelvis [employer] [id number] / / [employer] [id number] 7mm 8mm 135mm Self Drill Self Tap Cannulated Hexagon Head Foot - [id number] Implanted:Qty: 1 on 05/19/2019 by Morteza Narayanan MD at [facility] Right: Pelvis [employer] [id number] / / Synthes 204.885 3.5mm 6mm 85mm 2.5mm Self Tap Small Hexagonal Socket Low Profile - [id number] Implanted:Qty: 1 on 05/19/2019 by Morteza Narayanan MD at [facility] Pelvis Synthes I 204.885 / / Synthes 204.850 3.5mm 6mm 50mm 2.5mm Self Tap Small Hexagonal Socket Low Profile - [id number] Implanted:Qty: 2 on 05/19/2019 by Morteza Narayanan MD at [facility] Pelvis Synthes I 204.850 / / Synthes 204.846 3.5mm 6mm 46mm 2.5mm Self Tap Small Hexagonal Socket Low Profile - [id number] Implanted:Qty: 3 on 05/19/2019 by Morteza Narayanan MD at [facility] Pelvis Synthes I 204.846 / / Description:One of the 3 scr ews was explanted (IMPLANTED EXPLANTED) Synthes 204.860 3.5mm 6mm 60mm 2.5mm Self Tap Small Hexagonal Socket Low Profile - [id number] Implanted:Qty: 1 on 05/19/2019 by Morteza Narayanan MD at [facility] Pelvis Synthes I 204.860 / / Synthes 204.832 3.5mm 6mm 32mm 2.5mm Self Tap Small Hexagonal Socket Low Profile - [id number] Implanted:Qty: 1 on 05/19/2019 by Morteza Narayanan MD at [facility] Pelvis Synthes I 204.832 / / [employer] [id number] Washer Orth[employer] Stainless Steel Nonsterile Latex Free 5.5-7.5 - [id number] Implanted:Qty: 1 on 05/19/2019 by Morteza Narayanan MD at [facility] Right: Pelvis [employer] [id number] / / [facility] [id number] [place] Suture 2.3mm Iconix Xbraid 2 Needle Intellibraid Tech - [id number] Implanted:Qty: 2 on 10/18/2020 by Kayla Hooper MD at [facility] Left: Femur [facility] [id number] 05/04/2022 [id number] / / [id number] Explanted Type Area Script Supervisor Device Identifier Shelf Expiration Date Model / Serial / Lot Synthes 204.870 3.5mm 6mm 70mm 2.5mm Self Tap Small Hexagonal Socket Low Profile - [id number] Implanted:Qty: 1 Explanted:Qty: 1 on 05/19/2019 by Morteza Narayanan MD at [facility] Screw Right: Pelvis Synthes I 204.870 / / Synthes 204.855 3.5mm 6mm 55mm 2.5mm Self Tap Small Hexagonal Socket Low Profile - [id number] Implanted:Qty: 1 Explanted:Qty: 1 on 05/19/2019 at [facility] Pelvis Synthes I 204.855 / / Insurance MEDICARE [facility] MEDICARE Advance Directives For more information, please contact: [phone] * Full Code (Latest Code Status on File) Date Activated Date Inactivated Comments 05/18/2019 4:55 AM 05/22/2019 7:30 PM Care Teams Jointer Submarine Cable Relationship Specialty Start Date End Date Dudley Moser DO [address] [place] [address] PCP - General 02/19/21 Kamran Pink MD [address] [place] [address] Consulting Physician Rheumatology 01/14/20
--- OUTSIDE RECORDS SUMMARY | 2024-07-08 15:09 | XMS_ITS | Referral Summary ---
Author Organization [place] [id number] Address [address] [place] [address] Care Team Providers Care Corporate Paralegal Name Role Phone Kamran Pink MD Unavailable [phone] Dudley Moser DO Primary Care Provider [phone] Allergies Active Allergy Reactions Criticality Noted Date [...] 08/2019 Assessment & Plan (02/16/2020 2:22 PM MELON PACKER): Prior diagnosis of Ankylosing Spondylitis based on [...] 06/09/2020,05/12/2020 TD Preservative Free 03/26/2001 Tdap 05/17/2019,11/28/2011 Social History Tobacco Use Types Packs/Day Years [...] on file Legal Sex Male 6:52 AM MELON PACKER Gender Identity Not on file Sexual Orientation Not on file Occupation Industry Job Start Date Job End Date Retired Not on file Not on file Not on file Last Filed Vital Signs Vital Sign Reading Time Taken Comments Blood Pressure 133/78 06/14/2023 2:12 PM CDT Pulse 87 06/14/2023 2:12 PM CDT Temperature 36.4 C (97.5 F) 05/17/2021 12:54 PM MELON PACKER Respiratory Rate 14 05/17/2021 2:06 PM MELON PACKER Oxygen Saturation 97% 05/17/2021 2:06 PM MELON PACKER Inhaled Oxygen Concentration - - Weight 87.5 kg (193 lb) 06/14/2023 2:12 PM CDT Height 179.1 cm (5' 10.5 ) 06/14/2023 2:12 PM CD T Body Mass Index 27.3 06/14/2023 2:12 PM CDT Plan of Treatment Not on file Goals Goal Patient Goal Type Associated Problems Recent Progress Patient-Stated? Author CCM Chronic Pain Care Plan Chronic Care Management Improving( 12:58 PM MELON PACKER) Cluadia Gonzáles RN Note: Problem: Chronic Pain Goals: 1. Minimize further functional decline 2. Maximize quality of life 3. Control pain Strategies: - Activity/exercise program recommendation - Conservative stepwise pain medicine strategy with multi-disciplinary approach - Recommend healthy lifestyle strategies and compensatory methods as needed Medical Devices Implanted Type Area Pension Consultant Device Identifier Shelf Expiration Date Model / Serial / Lot Synthes 245.876 78mm 6 Hole Low Profile Curved Reconstruction Pelvic 108mm Radius - [id number] Implanted:Qty: 1 on 05/19/2019 by Morteza Narayanan MD at [facility] Plate Pelvis Synthes I 245.876 / / [employer] [id number] 7mm 8mm 100mm Cannulated Self Tap Self Drill Full Thread Hexagon - [id number] Implanted:Qty: 1 on 05/19/2019 by Morteza Narayanan MD at [facility] Right: Pelvis [employer] [id number] / / [employer] [id number] 7mm 8mm 135mm Self Drill Self Tap Cannulated Hexagon Head Foot - [id number] Implanted:Qty: 1 on 05/19/2019 by Morteza Narayanan MD at [facility] Right: Pelvis [employer] [id number] / / Synthes 204.885 3.5mm 6mm 85mm 2.5mm Self Tap Small Hexagonal Socket Low Profile - [id number] Implanted:Qty: 1 on 05/19/2019 by Morteza Narayanan MD at [facility] Pelvis Synthes I 204.885 / / Synthes 204.850 3.5mm 6mm 50mm 2.5mm Self Tap Small Hexagonal Socket Low Profile - [id number] Implanted:Qty: 2 on 05/19/2019 by Morteza Narayanan MD at [facility] Pelvis Synthes I 204.850 / / Synthes 204.846 3.5mm 6mm 46mm 2.5mm Self Tap Small Hexagonal Socket Low Profile - [id number] Implanted:Qty: 3 on 05/19/2019 by Morteza Narayanan MD at [facility] Pelvis Synthes I 204.846 / / Description:One of the 3 scr ews was explanted (IMPLANTED EXPLANTED) Synthes 204.860 3.5mm 6mm 60mm 2.5mm Self Tap Small Hexagonal Socket Low Profile - [id number] Implanted:Qty: 1 on 05/19/2019 by Morteza Narayanan MD at [facility] Pelvis Synthes I 204.860 / / Synthes 204.832 3.5mm 6mm 32mm 2.5mm Self Tap Small Hexagonal Socket Low Profile - [id number] Implanted:Qty: 1 on 05/19/2019 by Morteza Narayanan MD at [facility] Pelvis Synthes I 204.832 / / [employer] [id number] Washer Orthopedic Stainless Steel Nonsterile Latex Free 5.5-7.5 - [id number] Implanted:Qty: 1 on 05/19/2019 by Morteza Narayanan MD at [facility] Right: Pelvis [employer] [id number] / / [facility] [id number] [place] Suture 2.3mm Iconix Xbraid 2 Needle Intellibraid Tech - [id number] Implanted:Qty: 2 on 10/18/2020 by Kayla Hooper MD at [facility] Left: Femur [facility] [id number] 05/04/2022 [id number] / / [id number] Explanted Type Area Pension Consultant Device Identifier Shelf Expiration Date Model / Serial / Lot Synthes 204.870 3.5mm 6mm 70mm 2.5mm Self Tap Small Hexagonal Socket Low Profile - [id number] Implanted:Qty: 1 Explanted:Qty: 1 on 05/19/2019 by Morteza Narayanan MD at [facility] Screw Right: Pelvis Synthes I 204.870 / / Synthes 204.855 3.5mm 6mm 55mm 2.5mm Self Tap Small Hexagonal Socket Low Profile - [id number] Implanted:Qty: 1 Explanted:Qty: 1 on 05/19/2019 at [facility] Pelvis Synthes I 204.855 / / Insurance [facility] MEDICARE [facility] MEDICARE Advance Directives For more information, please contact: [phone] * Full Code (Latest Code Status on File) Date Activated Date Inactivated Comments 05/18/2019 4:55 AM 05/22/2019 7:30 PM Care Teams Corporate Paralegal Relationship Specialty Start Date End Date Dudley Moser DO [address] [place] [address] PCP - General 02/19/21 Kamran Pink MD [address] [place] [address] Consulting Physician Rheumatology 01/14/20
--- OUTSIDE RECORDS SUMMARY | 2024-07-08 15:09 | XMS_ITS | Encounter Summary ---
Author Organization [facility] [email or web address] [facility] Address [address] [place] [address] Care Team Providers Care Make Ready Mechanic Name Role Phone Dudley Moser DO Primary Care Provider Reason for Visit * Reason Comments Follow Up Encounter Details Date Type Department Care Team (Late st Contact Info) Description 07/08/2024 2:30 PM CDT Office Visit [facility] Oncology and Hematology - [place] [address] [facility] [address] [place] [address] Nilton Pittman MD [address] [facility] [address] [place] [address] Reactive thrombocytosis (Primary Dx) Social History Tobacco Use Types Packs/Day Years Used Date Smoking Tobacco: Never Tobacco Cessation:Counseling Given: Not Answered Alcohol Use Standard Drinks/Week Comments Yes 0 (1 standard drink = 0.6 oz pur e alcohol) Sex and Gender Information Value Date Recorded Sex Assigned at Not on file 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 Gender Identity Not on file Sexual Orientation Not on file documented as of this encounter Last Filed Vital Signs Vital Sign Reading Time Taken Comments Blood Pressure 142/81 07/08/2024 2:28 PM CDT Pulse 68 07/08/2024 2:25 PM CDT Temperature 36.5 C (97.7 F) 07/08/2024 2:25 PM CDT Respiratory Rate 15 07/08/2024 2:25 PM CDT Oxygen Saturation 97% 07/08/2024 2:25 PM CDT Inhaled Oxygen Concentration - - Weight 92.5 kg (204 lb) 07/08/2024 2:25 PM CDT Height - - Body Mass Index 27.67 09/22/2021 11:43 AM CDT documented in this encounter Progress Notes * Nilton Pittman MD - 07/08/2024 2:35 PM CDT HEMATOLOGY / ONCOLOGY PROGRESS NOTE Patient Identification: Name: Paul Dutton Age: 73 y.o. Sex: male : 1950 DIAGNOSIS Reactive thrombocytosis CURRENT TREATMENT Hydroxyurea 500 mg daily started October 30, 2022 Baby aspirin TREATMENT HISTORY SUBJECTIVE Patient came to the office for follow-up visit. Has been taking hydroxyurea daily and has been tolerating it well. Complain of left buttock pain but remains stable. Denies any neuropathy. Weight and appetite stable. No other new complaints. Review of system Constitutional: Patient did not mention fevers, sweats, weight and appetite stable, denies any tiredness and fatigue HEENT: Patient did not mention sinus congestion, hearing or vision problems Respiratory: Patient did not mention cough, dyspnea, wheeze Cardiovascular: Patient did not mention chest pain, exertional chest pressure/discomfort, nausea, syncope, shortness of breath GI: Patient did not mention constipation, diarrhea, dsyphagia, reflux symptoms, vomiting, melena : Patient did not mention dysuria, frequency, incontinence, urgency Integumentary system: no lymphadenopathy, sweats, flushing Musculoskeletal: Complain of chronic left buttock pain Neurological: Patient did not mention blurry or disturbed vision, numbness/weakness, dizziness Skin: No lumps, bumps or rashes. 12 point review system was reviewed Objective: Vital signs in last 24 hours: As per nursing note Exam: General appearance: alert, cooperative, no distress, appears stated age Head: normocephalic, without obvious abnormality, atraumatic Eyes: conjunctivae/corneas clear, EOM's intact Ears: normal external ear canals AU Nose: Nares normal. Septum midline. Mucosa normal. No drainage or sinus tenderness Throat: Lips, mucosa, and tongue normal. Teeth and gums normal Neck: supple, symmetrical, trachea midline. Lungs: clear to auscultation bilaterally Heart: regular rate and rhythm, S1, S2 normal, no murmur, click, rub or gallop Abdomen: soft, non-tender. Bowel sounds normal. No masses, No organomegaly Extremities: extremities normal, atraumatic, no cyanosis or edema Skin: Skin color, texture, turgor normal. No rashes or lesions Lymph nodes: No lymphadenopathy Neuro: No obvious focal deficit Exam as above PATH LABS Labs from August 25, 2021 showed JAK2 mutation negative CRP 26.7 sedimentation rate 2 WBC 8.5 hemoglobin 13.7 platelet 455,000 Labs from July 11 showed WBC 10.1 hemoglobin 15.6 hematocrit 47.2 platelet 682,000 Labs from October 30 showed WBC 11.7 hemoglobin 15.8 hematocrit 47.8 platelets 750,000 Labs from December 06 showed WBC 11.2 hemoglobin 15.6 platelet 636,000 Labs from January 15 showed WBC 10.3 hemoglobin 15.6 platelet 580,000 creatinine 1.4 Labs from February 27 show WBC 9.1 hemoglobin 15.3 platelet 523,000 creatinine 1.5 Labs from April 11 showed platelet 4 77,000 WBC 7.8 hemoglobin 15.2 creatinine 1.5 Labs from December 09 showed hemoglobin 15.8 hematocrit 47.8 platelet 605,000 creatinine 1.5 Labs from March 10 showed WBC 10 hemoglobin 16.5 platelet 580,000 creatinine 1.5 Left from July 08 showed hemoglobin 16.5 WBC 9.7 platelet 523,000 creatinine 3.4 Assessment: Plan: Patient Active Problem List Diagnosis Date Noted Reactive thrombocytosis 07/18/2021 Reactive thrombocytosis. JAK2 mutation negative and elevated C-reactive protein. This is likely secondary to the chronic left buttock pain and worsening costochondritis. Hydroxyurea 500 mg daily started on October 30, 2022. Labs showed improvement in the platelet count. He has been tolerating hydroxyurea well. He will continue hydroxyurea daily along with baby aspirin. Follow-up with me in 4 months. TLS prevention. Continue allopurinol 300 mg daily along with adequate hydration. Chronic left buttock pain. Stable. He will continue nonsteroidal anti- inflammatory medicine as needed. 07/08/2024 Nilton Pittman MD documented in this encounter Plan of Treatment Upcoming Encounters Date Type Department Care Team (Late st Contact Info) Description 11/10/2024 2:45 PM CDT Office Visit [facility] Oncology and Hematology - [place] [address] [place] [address] Nilton Pittman MD [address] [facility] [address] [place] [address] Scheduled Orders Name Type Priority Associated Diagnoses Orde r Schedule BASIC METABOLIC PANEL Lab Stat Reactive thrombocytosis Expected: 10/28/2024, Expires: 07/08/2025 CBC WITHOUT DIFFERENTIAL Lab Stat Reactive thrombocytosis Expected: 10/28/2024, Expires: 07/08/2025 documented as of this encounter Visit Diagnoses Diagnosis Reactive thrombocytosis- Primary documented in this encounter Care Teams Make Ready Mechanic Relationship Specialty Start Date End Date Dudley Moser DO [address] [facility] [address] [place] [address] PCP - General Internal Medicine 07/18/21 documented as of this encounter
--- OUTSIDE RECORDS SUMMARY | 2024-07-08 15:09 | XMS_ITS | Clinical Summary ---
Author Organization [facility] Address [address] [place] [address] Care Team Providers Care Wall Scraper Name Role Phone None, Provider MD Primary Care Provider Unavaila ble Allergies No known active allergies Medications amLODIPine 10 MG tablet Take 10 mg by mouth daily. Active clonazePAM 1 MG tablet Take 1 mg by mouth 2 (two) times daily as needed for Anxiety. Active doxazosin mesylate ER 8 MG TABLET SR 24 HR 24 hr tablet Take 1 tablet by mouth daily with breakfast. Active traMADol 50 MG tablet Take 50 mg by mouth every 6 (six) hours as needed for Pain. Active testosterone cypionate 200 MG/ML injection Inject 200 mg into the muscle every 28 days. Active Active Problems Problem Noted Date Diagnosed Date Ankylosing spondylitis ([facility] 020 Social History Tobacco Use Types Packs/Day Years Used Date Smoking Tobacco: Never Smokeless Tobacco: Never Sex and Gender Information Value Date Recorded Sex Assigned at Not on file Legal Sex Male 1:06 PM CDT Gender Identity Not on file Sexual Orientation Not on file Last Filed Vital Signs Vital Sign Reading Time Taken Comments Blood Pressure 154/81 02/02/2020 12:57 PM ENGINEERING PSYCHOLOGIST Pulse 73 02/02/2020 12:57 PM ENGINEERING PSYCHOLOGIST Temperature 36.6 C (97.9 F) 02/02/2020 12:57 PM ENGINEERING PSYCHOLOGIST Respiratory Rate 18 02/02/2020 12:57 PM ENGINEERING PSYCHOLOGIST Oxygen Saturation 98% 02/02/2020 12:57 PM ENGINEERING PSYCHOLOGIST Inhaled Oxygen Concentration - - Weight 90.7 kg (200 lb) 02/02/2020 12:57 PM ENGINEERING PSYCHOLOGIST Height 182.9 cm (6') 12/08/2019 12:49 PM CDT Body Mass Index 27.12 12/08/2019 12:49 PM CDT Plan of Treatment Health Maintenance Due Date Last Done Comments Colorectal Cancer Screening Colonoscopy (10 Years) 1950 Hepatitis C 09/04/1969 Zoster Vaccines (1 of 2) 09/04/2001 Annual Medicare Wellness Visit 09/04/2016 Pneumococcal Vaccine: 50+ Years (1 of 1 - PCV) 09/04/2016 COVID-19 Vaccine (1 - 2023-2 5 season) 2023 RSV Immunization or 60+ Years (1 - 1-dose 75+ series) 09/04/2026 DTaP, Tdap and Td Vaccines ( 3 - Td or Tdap) 05/17/2029 05/17/2019, 11/28/2011, 03/26/2001 Meningococcal B Vaccine Aged Out No l onger eligible based on patient's age to complete this topic Meningococcal Vaccine Aged Out No ludmila reymundo eligible based on patient's age to complete this topic RSV Immunizations Under 20 Months Aged Out No longer eligible b ased on patient's age to complete this topic Insurance MEDICARE [facility] Care Teams Wall Scraper Relationship Specialty Start Date End Date None, Provider, PCP - General 12/08/19
--- OUTSIDE RECORDS SUMMARY | 2024-07-08 15:10 | XMS_ITS | Clinical Summary ---
Author Organization [facility] Tricia Dai Address [address] [place] [address] Care Team Providers Care Store Clerk Cashier Name Role Phone Dudley Moser DO Primary Care Provider Allergies Active Allergy Reactions Criticality Noted Date Comments Ketamine Hallucination Medium 10/08/2020 Medications amLODIPine (NORVASC) 10 mg tablet Take 10 mg by mouth daily. 2 Active MELATONIN ORAL Take by mouth. Active clonazePAM (KlonoPIN) 0.5 mg Tablet Take 0.5 mg by mouth 2 times daily. Active losartan (COZAAR) 100 mg tablet Take 100 mg by mouth daily. Active aspirin (ECOTRIN EC) 81 mg Tablet, Delayed Release (E.C.) Take 81 mg by mouth daily. Active allopurinoL (ZYLOPRIM) 300 mg tablet Take 1 tablet by mouth once daily 90 Tablet 5 Active hydroxyurea (HYDREA) 500 mg capsule Take 1 capsule by mouth once daily 90 Capsule 5 Active hydroxyurea (HYDREA) 500 mg capsule Take 1 capsule by mouth once daily 90 Capsule 4 06/20/19 25 Discontinued allopurinoL (ZYLOPRIM) 300 mg tablet Take 1 tablet by mouth once daily 90 Tablet 5 06/20/19 25 Discontinued Active Problems Problem Noted Date Diagnosed Date Reactive thrombocytosis 07/18/2021 Encounters Date Type Department Care Team Description 07/08/2024 2:30 PM CDT Office Visit [facility] Oncology and Hematology - [place] [address] [place] [address] Nilton Pittman MD Reactive thrombocytosis (Primary Dx) 07/01/2024 External Device Data STL ABSTRACTION Provider, Abstract 06/19/2024 [facility] Oncology and Hematology [facility] [address] [place] [address] Queta Michel MD 06/19/2024 [facility] Oncology and Hematology [place] [address] [place] [address] Anai Chen MD 06/11/2024 External Device Data STL ABSTRACTION Provider, Abstract 06/02/2024 External Device Data STL ABSTRACTION Provider, Abstract 05/20/2024 External Device Data STL ABSTRACTION Provider, Abstract 04/17/2024 External Device Data STL ABSTRACTION Provider, Abstract 04/15/2024 External Device Data STL ABSTRACTION Provider, Abstract from Last 3 Months Family History Medical History Relation Name Comments Diabetes Father Heart Disease Father Diabetes Mother Heart Disease Mother Relation Name Status Comments Brother Alive Daughter Alive Father Mother Sister Alive Son 1 Alive Son 2 Alive Social History Tobacco Use Types Packs/Day Years Used Date Smoking Tobacco: Never Tobacco Cessation:Counseling Given: Not Answered Alcohol Use Standard Drinks/Week Comments Yes 0 (1 standard drink = 0.6 oz pur e alcohol) Sex and Gender Information Value Date Recorded Sex Assigned at Not on file 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 Gender Identity Not on file Sexual Orientation [...] (204 lb) 07/08/2024 2:25 PM CDT Height 182.9 cm (6') 09/22/2021 11:43 AM CDT Body Mass Index 27.67 09/22/2021 11:43 AM CDT Plan of Treatment Upcoming Encounters Date Type Department Care Team (Late st Contact Info) Description 11/10/2024 2:45 PM CDT Office Visit [facility] Oncology and Hematology - [place] [address] [place] [address] Nilton Pittman MD [address] [facility] [address] [place] [address] Health Maintenance Due Date Last Done Comments Traditional Medicare (ACO) A nnual Wellness Visit 09/04/1970 COLORECTAL SCREENING 09/04/1996 Colorectal Cancer Screening 09/04/1996 FIT-DNA Q 3 years 09/04/1996 FIT/FOBT Q 1 year 09/04/1996 Flex Sig/CT Colonography Q 5 years 09/04/1996 PNEUMOCOCCAL VACCINE 50+ YEA RS (1 of 1 - PCV) 09/04/2001 ZOSTER VACCINE (1 of 2) 09/04/2001 INFLUENZA VACCINE (#1) 2023 , 12/09/2019, 01/08/2019, Additional history exists COVID-19 Vaccine ( - 2023-2 5 season) 2023 06/09/2020, 05/12/2020 RSV VACCINE (60+ or ) (1 - 1-dose 75+ series) 09/04/2026 DTAP/TDAP/TD VACCINES (3 - T d or Tdap) 05/17/2029 05/17/2019, 11/28/2011, 03/26/2001 Insurance MEDICARE PART A AND B BCBS SUPP Care Teams Store Clerk Cashier Relationship Specialty Start Date End Date Dudley Moser DO [address] [address] PCP - General Internal Medicine 07/18/21
== END 2024-07-08 14:02 | disposition home or self-care (01) ==
LOC: ANHLAB 14:02
PROVIDERS: PCP Internal Medicine; Visit Provider Internal Medicine Hematology & Oncology
DX: D75.838 Other thrombocytosis (principal)
CPT/HCPCS: 36415; 80047; 85025

== ENCOUNTER 2024-10-14 15:24 | Outpatient (CLI) | payer MEDICARE, SELFPAY ==
--- NOTE | ~2024-10-14 | MR_ITS ---
EXAMINATION: MR lumbar spine wo con DATE: 10/14/2024 15:58 INDICATION: Lumbar radiculopathy TECHNIQUE: Magnetic resonance imaging (MRI) of the lumbar spine was performed without intravenous con trast. Sequences included sagittal T2-weighted FSE, sagittal T2-weighted FS FSE, sagittal T1-weighted FSE, and axial T2-weighted FSE. COMPARISON: None FINDINGS: There a linear tracts of metallic magnetic artifact associated with iliac screws which can be seen on prior KUB extending from right to left cross the right sacroiliac joint and S1 body and across the s acrum and both sacroiliac joints at the level of S2. 5 degrees lumbar levocurvature. 3 mm retrolisthe sis L2 on L3 and L3-L4. Vertebral body heights are normal. Vertebral body heights are normal. T1 hype rintense hemangiomas at L1 and L4. Moderate to severe disc height loss at L2-L3. Moderate disc height loss at L4-5, L5-S1 and with right-sided predominance at L3-L4. Mild disc height loss at L1-L2. The conus medullaris terminates at L1. There is normal signal in the caudal spinal cord. Paravertebral so ft tissues are unremarkable. The following disc levels are specifically discussed: T12-L1: The disc does not extend beyond the endplate margin. There is moderate bilateral facet joint osteoarthritis. There is no neural foraminal stenosis. There is no central canal stenosis. L1-L2: Disc is bulging with annular fissure and superimposed new small right paracentral disc extrusi on with disc material extending up to 4 mm caudal to the level of the superior endplate of L2. There is severe bilateral facet joint osteoarthritis. There is mild right and mild to moderate left neural foraminal stenosis. There is mild central canal stenosis. L2-L3: Disc is bulging. There is severe bilateral facet joint osteoarthritis. There is mild to modera te bilateral neural foraminal stenosis. There is mild central canal stenosis. L3-L4: Disc is bulging. There is moderate left and severe right facet joint osteoarthritis. There is moderate bilateral neural foraminal stenosis. There is mild central canal stenosis. L4-L5: Disc is bulging with annular fissure. There is severe bilateral facet joint osteoarthritis. Th ere is moderate bilateral neural foraminal stenosis. There is mild central canal stenosis. L5-S1: Disc is bulging with annular fissure There is severe bilateral facet joint osteoarthritis. The re is mild to moderate bilateral neural foraminal stenosis. There is mild central canal stenosis. IMPRESSION: 1. Mild interval progression of severe lumbar spondylosis with new annular fissure and small right pa racentral disc extrusion superimposed on the prior disc bulge at L1-L2. Reviewed, dictated and finalized at location A. IMPRESSION: 1. Mild interval progression of severe lumbar spondylosis with new annular fiss ure and small right paracentral disc extrusion superimposed on the prior disc b ulge at L1-L2.
== END 2024-10-14 15:25 | disposition home or self-care (01) ==
LOC: MICIMG 15:25
PROVIDERS: PCP Internal Medicine; Visit Provider Nurse Practitioner
DX: M47.816 Spondylosis without myelopathy or radiculopathy, lumbar region (principal); Q76.49 Other congenital malformations of spine, not associated with scoliosis; M51.26 Other intervertebral disc displacement, lumbar region
CPT/HCPCS: 72148

== ENCOUNTER 2024-11-10 14:19 | Outpatient (CLI) | payer MEDICARE, SELFPAY ==
[2024-11-10 14:35] LABS: Hematocrit 47.1 % (42.0-52.0); Hemoglobin 16.0 g/dL (14.0-18.0); Mean Corpuscular HGB Conc 34.0 g/dl (32-36); Mean Corpuscular Hemoglobin 35.0 pg (26-34); Mean Corpuscular Volume 103.1 fl (80-100); Platelet Count Result 571 k/mm3 (150-375); Red Blood Count 4.57 M/mm3 (4.6-6.20); White Blood Count 9.1 K/mm3 (4.5-10.0)
[2024-11-10 14:39] LABS: Blood Urea Nitrogen 21 mg/dL (8-26); Carbon Dioxide 24 mmol/L (22-30); Chloride 104 mmol/L (98-109); Estimated Glomerular Filt Rate 16; Glucose 107 mg/dL (70-105); Ionized Calcium (POC) 1.19 mmol/L (1.11-1.31); Potassium 4.7 mmol/L (3.5-4.9); Sodium 139 mmol/L (138-146)
--- OUTSIDE RECORDS SUMMARY | 2024-11-10 15:22 | XMS_ITS | Patient Health Record ---
Author Organization [facility] Address [address] [place] [address] Support Name Relationship Address Phone REGINA REA Emergency Contact Unknown Unavailabl e JAYA REA Guarantor Unknown [phone] Reason For Referral No Information Medications Medication SIG (Take, Route, Frequency, Duration) Notes Start Date End Date Status LUER-CRISTOBAL SYRINGE-NEEDLE 3 mL 23 gauge x 1 1/2 MISCELLANEOUS *Reorder from [employer] for eRx and Interaction Alerts* 07/29/2021 Active Wellbutrin SR 200 MG Oral 07/29/2021 Active traMADol HCl 50 MG Oral 07/29/2021 Active Testosterone Cypionate 200 MG/ML Intramuscular 07/29/2021 Active Losartan Potassium 25 MG Oral 07/29/2021 Active Pregabalin 50 MG Oral 07/29/2021 Ac tive Pregabalin 225 MG Oral 07/29/2021 A ctive DULoxetine HCl 30 MG Oral 07/29/2021 Active Meloxicam 7.5 MG Oral 07/29/2021 Ac tive oxyCODONE HCl 80 mg ORAL *Pick strength-form from [employer] for eRX* 07/29/2021 Active Escitalopram Oxalate 10 MG Oral 07/29/2021 Active hydrOXYzine HCl 25 MG Oral 07/29/2021 Active HYDROcodone-Acetamin ophen 5-325 MG Oral 07/29/2021 Active diazePAM 5 MG Oral 07/29/2021 Activ e Tamsulosin HCl 0.4 MG Oral 07/29/2021 Active Aspirin 81 MG Oral *Pick strength-form from [employer] for eRX* 07/29/2021 Active Morphine Sulfate 15 MG Oral 07/29/2021 Active HYDROcodone-Acetamin ophen 7.5-325 MG Oral 07/29/2021 Active QUEtiapine Fumarate 50 MG Oral 07/29/2021 Active Doxazosin Mesylate 8 MG Oral 07/29/2021 Active QUEtiapine Fumarate 100 MG Oral 07/29/2021 Active amLODIPine Besylate 10 MG Oral 07/29/2021 Active Immunizations Vaccine Route Administration Date Status Comme nts Moderna Covid-19 Vaccine 1st dose Unknown 05/12/2020 Ad ministered Moderna Covid-19 Vaccine 1st dose Unknown 06/09/2020 Ad ministered Moderna Covid-19 Vaccine 1st dose Unknown 01/14/2021 Ad ministered Moderna Covid-19 Vaccine 1st dose Unknown 06/23/2021 Ad ministered Plan Of Treatment No Information Insurance Providers Payer Name Payer Address Payer Phone Subscriber Number Group Number Insured Name Patient Relationship to Insured Coverage Start Date Coverage End Date Medicare-I l Medicare [address] [place] [address] [id number] JAYA REA Self - patient is the insured [facility] Ppo [address] [place] [address] [id number] JAYA REA Self - patient is the insured Medical (General) History Surgical History Surgery Date(Month/Year) Neurosurgery 03/26/1993 Any surgical history 03/26/1994
--- OUTSIDE RECORDS SUMMARY | 2024-11-10 15:22 | XMS_ITS | Clinical Summary ---
Author Organization [place] [id number] [facility] Address [address] [place] [address] Care Team Providers Care Aeronautical Design Engineer Name Role Phone Kamran Pink MD Unavailable [phone] Dudley Moser DO Primary Care Provider [phone] Allergies Active Allergy Reactions Criticality Noted Date [...] 08/2019 Assessment & Plan (02/16/2020 2:22 PM CLAM BED WORKER): Prior diagnosis of Ankylosing Spondylitis based on [...] on file Legal Sex Male 6:52 AM CLAM BED WORKER Gender Identity Not on file Sexual Orientation Not on file Occupation Industry Job Start Date Job End Date Retired Not on file Not on file Not on file Obstetrics History Last Filed Vital Signs Vital Sign Reading Time Taken Comments Blood Pressure 133/78 06/14/2023 2:12 PM CDT Pulse 87 06/14/2023 2:12 PM CDT Temperature 36.4 C (97.5 F) 05/17/2021 12:54 PM CLAM BED WORKER Respiratory Rate 14 05/17/2021 2:06 PM CLAM BED WORKER Oxygen Saturation 97% 05/17/2021 2:06 PM CLAM BED WORKER Inhaled Oxygen Concentration - - Weight 87.5 kg (193 lb) 06/14/2023 2:12 PM CDT Height 179.1 cm (5' 10.5) 06/14/2023 2:12 PM CD T Body Mass [...] season) 2023 01/14/2021, 06/09/2020, 05/12/2020 Influenza Vaccine (#1) 2024 , 12/09/2019, 12/09/2019, Additional history exists DTaP/Tdap/Td Vaccine (3 - Td or Tdap) 05/17/2029 05/17/2019, 11/28/2011, 03/26/2001 Hepatitis C Screening Completed 01/16/2007 Goals Goal Patient Goal Type Associated Problems Recent Progress Patient-Stated? Author CCM Chronic Pain Care Plan Chronic Care Management Improving( 12:58 PM CLAM BED WORKER) Claudia Gonzáles RN Note: Problem: Chronic Pain Goals: 1. Minimize further functional decline 2. Maximize quality of life 3. Control pain Strategies: - Activity/exercise program recommendation - Conservative stepwise pain medicine strategy with multi-disciplinary approach - Recommend healthy lifestyle strategies and compensatory methods as needed Medical Devices Implanted Type Area Construction Equipment Mechanic Device Identifier Shelf Expiration Date Model / Serial / Lot Synthes 245.876 78mm 6 Hole Low Profile Curved Reconstruction Pelvic 108mm Radius - [id number] Implanted:Qty: 1 on 05/19/2019 by Morteza Narayanan MD at [facility] Plate Pelvis Synthes I 245.876 / / [employer] [id number] 7mm 8mm 100mm Cannulated Self Tap Self Drill Full Thread Hexagon - [id number] Implanted:Qty: 1 on 05/19/2019 by Morteza Narayanan MD at [facility] Right: Pelvis [employer] [id number] / / [employer] [id number] 7mm 8mm 135mm Self Drill Self Tap Cannulated Hexagon Head Foot - [id number] Implanted:Qty: 1 on 05/19/2019 by Morteza Narayanan MD at [facility] Right: Pelvis [employer] [id number] / / Synthes 204.885 3.5mm 6mm 85mm 2.5mm Self Tap Small Hexagonal Socket Low Profile - [id number] Implanted:Qty: 1 on 05/19/2019 by Morteza Narayanan MD at [facility] Pelvis Synthes I 204.885 / / Synthes 204.850 3.5mm 6mm 50mm 2.5mm Self Tap Small Hexagonal Socket Low Profile - [id number] Implanted:Qty: 2 on 05/19/2019 by Morteza Narayanan MD at [facility] Pelvis Synthes I 204.850 / / Synthes 204.846 3.5mm 6mm 46mm 2.5mm Self Tap Small Hexagonal Socket Low Profile - [id number] Implanted:Qty: 3 on 05/19/2019 by Morteza Narayanan MD at [facility] Pelvis Synthes I 204.846 / / Description:One of the 3 scr ews was explanted (IMPLANTED EXPLANTED) Synthes 204.860 3.5mm 6mm 60mm 2.5mm Self Tap Small Hexagonal Socket Low Profile - [id number] Implanted:Qty: 1 on 05/19/2019 by Morteza Narayanan MD at [facility] Pelvis Synthes I 204.860 / / Synthes 204.832 3.5mm 6mm 32mm 2.5mm Self Tap Small Hexagonal Socket Low Profile - [id number] Implanted:Qty: 1 on 05/19/2019 by Morteza Narayanan MD at [facility] Pelvis Synthes I 204.832 / / [employer] [id number] Washer Orthopedic Stainless Steel Nonsterile Latex Free 5.5-7.5 - [id number] Implanted:Qty: 1 on 05/19/2019 by Morteza Narayanan MD at [facility] Right: Pelvis [employer] [id number] / / [facility] [id number] [place] Suture 2.3mm Iconix Xbraid 2 Needle Intellibraid Tech - [id number] Implanted:Qty: 2 on 10/18/2020 by Kayla Hooper MD at [facility] Left: Femur [facility] [id number] 05/04/2022 [id number] / / [id number] Explanted Type Area Construction Equipment Mechanic Device Identifier Shelf Expiration Date Model / Serial / Lot Synthes 204.870 3.5mm 6mm 70mm 2.5mm Self Tap Small Hexagonal Socket Low Profile - [id number] Implanted:Qty: 1 Explanted:Qty: 1 on 05/19/2019 by Morteza Narayanan MD at [facility] Screw Right: Pelvis Synthes I 204.870 / / Synthes 204.855 3.5mm 6mm 55mm 2.5mm Self Tap Small Hexagonal Socket Low Profile - [id number] Implanted:Qty: 1 Explanted:Qty: 1 on 05/19/2019 at [facility] Pelvis Synthes I 204.855 / / Insurance MEDICARE [facility] MEDICARE Advance Directives For more information, please contact: [phone] * Full Code (Latest Code Status on File) Date Activated Date Inactivated Comments 05/18/2019 4:55 AM 05/22/2019 7:30 PM Care Teams Aeronautical Design Engineer Relationship Specialty Start Date End Date Dudley Moser DO [address] [place] [address] PCP - General 02/19/21 Kamran Pink MD [address] [place] [address] Consulting Physician Rheumatology 01/14/20
--- OUTSIDE RECORDS SUMMARY | 2024-11-10 15:22 | XMS_ITS | Clinical Summary ---
Author Organization [facility] [employer] Address [address] [facility] [place] [address] Care Team Providers Care Claims Account Specialist Name Role Phone Matty Gallegos MD Unavailable [phone] Matty Gallegos MD Primary Care Provider [phone] Source Comments [facility] [employer],non-owned Affiliates and Associated Physician Practices is amultiple site organization consisting of ambulatory clinics and hospital sitesin [place], [place], [place] and [place]. This disclosure is being madepursuant to the Care Everywhere program and may not contain all information available regarding this patient. Last updated 17.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 [place] [address] Advance Directives * FULL RESUSCITATION (Latest Code Status on File) Date Activated Date Inactivated Comments 01/17/2011 11:48 AM 01/18/2011 3:25 AM Care Teams Claims Account Specialist Relationship Specialty Start Date End Date Matty Gallegos MD [address] [place] [address] PCP - General 11/17/10 Matty Gallegos MD Family Medicine 05/02/10
--- OUTSIDE RECORDS SUMMARY | 2024-11-10 15:22 | XMS_ITS | Clinical Summary ---
Author Organization [facility] Address [address] [place] [address] Care Team Providers Care Roll Builder Name Role Phone Dudley Moser DO Primary [...] allopurinoL (ZYLOPRIM) 300 mg tablet Take 1 Tablet (300 mg) by mouth daily. 90 Tablet 2 5 Active hydroxyurea (HYDREA) 500 mg capsule Take 1 Capsule (500 mg) by mouth daily. 90 Capsule 2 5 Active hydroxyurea (HYDREA) 500 mg capsule Take 1 capsule by mouth once daily 90 Capsule 5 11/11/19 Discontinu ed(Reorder ) allopurinoL (ZYLOPRIM) 300 mg tablet Take 1 tablet by mouth once daily 90 Tablet 5 11/11/19 25 Discontinu ed(Reorder ) Active Problems Problem Noted Date Diagnosed Date Reactive thrombocytosis 07/18/2021 Encounters Date Type Department Care Team Description 11/10/2024 2:45 PM CDT Office Visit [facility] Oncology and Hematology - [place] [address] [place] [address] Nilton Pittman MD Reactive thrombocytosis (Primary Dx) 09/15/2024 [facility] Oncology and Hematology [facility] [address] [place] [address] Anai Chen MD 09/15/2024 [facility] Oncology and Hematology [place] [address] [place] [address] Queta Michel MD 09/09/2024 External Device Data STL ABSTRACTION Provider, Abstract 08/21/2024 [facility] Oncology and Hematology [facility] [address] [place] [address] Nilton Pittman MD Insurance Letter Request 08/14/2024 External Device Data STL ABSTRACTION Provider, Abstract 08/14/2024 External Device Data STL ABSTRACTION Provider, Abstract 08/13/2024 External Device Data STL ABSTRACTION Provider, Abstract 08/12/2024 External Device Data STL ABSTRACTION Provider, Abstract from Last 3 Months Family History Medical History Relation Name Comments Diabetes Father Heart Disease Father Diabetes Mother Heart Disease Mother Relation Name Status Comments Brother Alive Daughter Alive Father Mother Sister Alive Son 1 Alive Son 2 Alive Social History Tobacco Use Types Packs/Day Years Used Date Smoking Tobacco: Never Alcohol Use Standard Drinks/Week Comments Yes 0 (1 standard drink = 0.6 oz pur e alcohol) Sex and Gender Information Value Date Recorded Sex Assigned at Not on file 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:55 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 Gender Identity Not on file Sexual Orientation Not on file Last Filed Vital Signs Vital Sign Reading Time Taken Comments Blood Pressure 181/65 11/10/2024 2:43 PM CDT Pulse 78 11/10/2024 2:39 PM CDT Temperature 36.8 C (98.3 F) 11/10/2024 2:39 PM CDT Respiratory Rate 16 11/10/2024 2:39 PM CDT Oxygen Saturation 95% 11/10/2024 2:39 PM CDT Inhaled Oxygen Concentration - - Weight 92.1 kg (203 lb) 11/10/2024 2:39 PM CDT Height 182.9 cm (6') 09/22/2021 11:43 AM CDT Body Mass Index 27.53 09/22/2021 11:43 AM CDT Plan of Treatment Upcoming Encounters Date Type Department Care Team (Late st Contact Info) Description 03/12/2025 2:45 PM WALL TAPER HELPER Office Visit [facility] Oncology and Hematology - [place] [address] [facility] [address] [place] [address] Nilton Pittman MD [address] [facility] [address] [place] [address] Health Maintenance Due Date Last Done Comments Traditional Medicare (ACO) A nnual Wellness Visit 09/04/1970 COLORECTAL SCREENING 09/04/1996 Colorectal Cancer Screening 09/04/1996 FIT-DNA Q 3 years 09/04/1996 FIT/FOBT Q 1 year 09/04/1996 Flex Sig/CT Colonography Q 5 years 09/04/1996 PNEUMOCOCCAL VACCINE 50+ YEA RS (1 of 1 - PCV) 09/04/2001 ZOSTER VACCINE (1 of 2) 09/04/2001 COVID-19 Vaccine (3 - 2023-2 5 season) 2023 06/09/2020, 05/12/2020 INFLUENZA VACCINE (#1) 2024 , 12/09/2019, 01/08/2019, Additional history exists RSV VACCINE (60+ or ) (1 - 1-dose 75+ series) 09/04/2026 DTAP/TDAP/TD VACCINES (3 - T d or Tdap) 05/17/2029 05/17/2019, 11/28/2011, 03/26/2001 Insurance MEDICARE PART A AND B BCBS SUPP Care Teams Roll Builder Relationship Specialty Start Date End Date Dudley Moser DO [address] [address] PCP - General Internal Medicine 07/18/21
== END 2024-11-10 14:20 | disposition home or self-care (01) ==
PROVIDERS: PCP Internal Medicine; Visit Provider Internal Medicine Hematology & Oncology
DX: D75.838 Other thrombocytosis (principal)
CPT/HCPCS: 36415; 80047; 85027

== ENCOUNTER 2024-11-27 11:03 | Outpatient (CLI) | payer MEDICARE, SELFPAY ==
[2024-11-27 11:40] LABS: Hematocrit 49.8 % (42.0-52.0); Hemoglobin 16.7 g/dL (14.0-18.0); Mean Corpuscular HGB Conc 33.5 g/dl (32-36); Mean Corpuscular Hemoglobin 34.9 pg (26-34); Mean Corpuscular Volume 104.0 fl (80-100); Platelet Count Result 566 k/mm3 (150-375); Red Blood Count 4.79 M/mm3 (4.6-6.20); White Blood Count 8.6 K/mm3 (4.5-10.0)
[2024-11-27 11:46] LABS: Add Urine Microscopic? NO; Appearance Urine Clear (Clear); Glucose Urine UA Negative (Negative); Leukocyte Esterase Ur Negative LEU/UL (Negative); Nitrate Urine Negative (Negative); Specific Grav Ur 1.019 (1.001-1.035)
--- OUTSIDE RECORDS SUMMARY | 2024-11-27 11:48 | XMS_ITS | Clinical Summary ---
Author Organization [place] [id number] [facility] Address [address] [place] [address] Care Team Providers Care Half Backer Name Role Phone Kamran Pink MD Unavailable Dudley Moser DO Primary Care Provider [phone] Allergies Active Allergy Reactions Criticality Noted Date [...] 08/2019 Assessment & Plan (02/16/2020 2:22 PM HAND PLUG SHAPER): Prior diagnosis of Ankylosing Spondylitis based on [...] on file Legal Sex Male 6:52 AM HAND PLUG SHAPER Gender Identity Not on file Sexual Orientation Not on file Occupation Industry Job Start Date Job End Date Retired Not on file Not on file Not on file Obstetrics History Last Filed Vital Signs Vital Sign Reading Time Taken Comments Blood Pressure 133/78 06/14/2023 2:12 PM CDT Pulse 87 06/14/2023 2:12 PM CDT Temperature 36.4 C (97.5 F) 05/17/2021 12:54 PM HAND PLUG SHAPER Respiratory Rate 14 05/17/2021 2:06 PM HAND PLUG SHAPER Oxygen Saturation 97% 05/17/2021 2:06 PM HAND PLUG SHAPER Inhaled Oxygen Concentration - - Weight 87.5 [...] Plan Chronic Care Management Improving( 12:58 PM HAND PLUG SHAPER) Claudia Gonzáles RN Note: Problem: Chronic Pain Goals: 1. Minimize further functional decline 2. Maximize quality of life 3. Control pain Strategies: - Activity/exercise program recommendation - Conservative stepwise pain medicine strategy with multi-disciplinary approach - Recommend healthy lifestyle strategies and compensatory methods as needed Medical Devices Implanted Type Area Dupligraph Operator Device Identifier Shelf Expiration Date Model / Serial / Lot Synthes 245.876 78mm 6 Hole Low Profile Curved Reconstruction Pelvic 108mm Radius - [id number] Implanted:Qty: 1 on 05/19/2019 by Morteza Narayanan MD at [facility] Plate Pelvis Synthes I 245.876 / / [employer] [id number] 7mm 8mm 100mm Cannulated Self Tap Self Drill Full Thread Hexagon - [id number] Implanted:Qty: 1 on 05/19/2019 by Morteza Narayanan MD at [facility] Right: Pelvis [employer] [id number] / / [employer] [id number] 7mm 8mm 135mm Self Drill Self Tap Cannulated Hexagon Head Foot - [id number] Implanted:Qty: 1 on 05/19/2019 by Morteza Narayanan MD at [facility] Right: Pelvis [employer] [id number] / / Synthes 204.885 3.5mm 6mm 85mm 2.5mm Self Tap Small Hexagonal Socket Low Profile - [id number] Implanted:Qty: 1 on 05/19/2019 by Morteza Narayanan MD at [facility] Pelvis Synthes I 204.885 / / Synthes 204.850 3.5mm 6mm 50mm 2.5mm Self Tap Small Hexagonal Socket Low Profile - [id number] Implanted:Qty: 2 on 05/19/2019 by Morteza Narayanan MD at [facility] Pelvis Synthes I 204.850 / / Synthes 204.846 3.5mm 6mm 46mm 2.5mm Self Tap Small Hexagonal Socket Low Profile - [id number] Implanted:Qty: 3 on 05/19/2019 by Morteza Narayanan MD at [facility] Pelvis Synthes I 204.846 / / Description:One of the 3 scr ews was explanted (IMPLANTED EXPLANTED) Synthes 204.860 3.5mm 6mm 60mm 2.5mm Self Tap Small Hexagonal Socket Low Profile - [id number] Implanted:Qty: 1 on 05/19/2019 by Morteza Narayanan MD at [facility] Pelvis Synthes I 204.860 / / Synthes 204.832 3.5mm 6mm 32mm 2.5mm Self Tap Small Hexagonal Socket Low Profile - [id number] Implanted:Qty: 1 on 05/19/2019 by Morteza Narayanan MD at [facility] Pelvis Synthes I 204.832 / / [employer] [id number] Washer Orthopedic Stainless Steel Nonsterile Latex Free 5.5-7.5 - [id number] Implanted:Qty: 1 on 05/19/2019 by Morteza Narayanan MD at [facility] Right: Pelvis [employer] [id number] / / [facility] [id number] [place] Suture 2.3mm Iconix Xbraid 2 Needle Intellibraid Tech - [id number] Implanted:Qty: 2 on 10/18/2020 by Kayla Hooper MD at [facility] Left: Femur [facility] [id number] 05/04/2022 [id number] / / [id number] Explanted Type Area Dupligraph Operator Device Identifier Shelf Expiration Date Model / Serial / Lot Synthes 204.870 3.5mm 6mm 70mm 2.5mm Self Tap Small Hexagonal Socket Low Profile - [id number] Implanted:Qty: 1 Explanted:Qty: 1 on 05/19/2019 by Morteza Narayanan MD at [facility] Screw Right: Pelvis Synthes I 204.870 / / Synthes 204.855 3.5mm 6mm 55mm 2.5mm Self Tap Small Hexagonal Socket Low Profile - [id number] Implanted:Qty: 1 Explanted:Qty: 1 on 05/19/2019 at [facility] Pelvis Synthes I 204.855 / / Insurance MEDICARE [facility] MEDICARE Advance Directives For more information, please contact: [phone] * Full Code (Latest Code Status on File) Date Activated Date Inactivated Comments 05/18/2019 4:55 AM 05/22/2019 7:30 PM Care Teams Half Backer Relationship Specialty Start Date End Date Dudley Moser DO [address] [place] [address] PCP - General 02/19/21 Kamran Pink MD [address] [place] [address] Consulting Physician Rheumatology 01/14/20
--- OUTSIDE RECORDS SUMMARY | 2024-11-27 11:48 | XMS_ITS | Clinical Summary ---
Author Organization [facility] Address [address] [place] [address] Care Team Providers Care Fruit Or Nut Farmer Name Role Phone None, Provider MD Primary [...] Noted Date Diagnosed Date Ankylosing spondylitis ([facility]) 020 Social History Tobacco Use Types Packs/Day Years Used Date Smoking Tobacco: Never Smokeless Tobacco: Never Sex and Gender Information Value Date Recorded Sex Assigned at Not on file Legal Sex Male 1:06 PM CDT Gender Identity Not on file Sexual Orientation Not on file Last Filed Vital Signs Vital Sign Reading Time Taken Comments Blood Pressure 154/81 02/02/2020 12:57 PM SENIOR LABORATORY TECHNICIAN Pulse 73 02/02/2020 12:57 PM SENIOR LABORATORY TECHNICIAN Temperature 36.6 C (97.9 F) 02/02/2020 12:57 PM SENIOR LABORATORY TECHNICIAN Respiratory Rate 18 02/02/2020 12:57 PM SENIOR LABORATORY TECHNICIAN Oxygen Saturation 98% 02/02/2020 12:57 PM SENIOR LABORATORY TECHNICIAN Inhaled Oxygen Concentration - - Weight 90.7 kg (200 lb) 02/02/2020 12:57 PM SENIOR LABORATORY TECHNICIAN Height 182.9 cm (6') 12/08/2019 12:49 PM CDT Body Mass Index 27.12 12/08/2019 12:49 PM CDT Plan of Treatment Health Maintenance Due Date Last Done Comments Colorectal Cancer Screening Colonoscopy (10 Years) 1950 Hepatitis C 09/04/1969 Pneumococcal Vaccine: 50+ Years (1 of 1 - PCV) 09/04/2001 Zoster Vaccines (1 of 2) 09/04/2001 Annual Medicare Wellness Visit 09/04/2016 COVID-19 Vaccine (1 - 2023-2 5 [...] age to complete this topic Insurance MEDICARE [facility] Care Teams Fruit Or Nut Farmer Relationship Specialty Start Date End Date None, Provider, PCP - General 12/08/19
--- OUTSIDE RECORDS SUMMARY | 2024-11-27 11:48 | XMS_ITS | Clinical Summary ---
Author Organization [facility] Tricia Dai Address [address] [place] [address] Care Team Providers Care Documentation Writer Name Role Phone Dudley Moser DO Primary [...] Encounters Date Type Department Care Team Description 11/25/2024 External Device Data STL ABSTRACTION Provider, Abstract 11/11/2024 External Device Data STL ABSTRACTION Provider, Abstract 11/10/2024 2:45 PM CDT Office Visit [facility] Oncology and Hematology - [place] [address] [place] [address] Nilton Pittman MD Reactive thrombocytosis (Primary Dx) 11/10/2024 Orders Only [facility] Oncology and Hematology - [place] [address] [place] [address] Nilton Pittman MD 09/15/2024 Refill [facility] Oncology and Hematology - [place] [address] [place] [address] Anai Chen MD 09/15/2024 Refill [facility] Oncology and Hematology - [place] [address] [place] [address] Queta Michel MD 09/09/2024 External Device Data [...] on file 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 Gender Identity Not on file Sexual Orientation [...] st Contact Info) Description 03/12/2025 2:45 PM ANALYTICS DEVELOPER Office Visit [facility] Oncology and Hematology - [place] [address] [facility] [address] [place] [address] Nilton Pittman MD [address] [facility] [address] [place] [address] Health Maintenance Due Date Last Done Comments Traditional Medicare (ACO) A nnual Wellness Visit 09/04/1970 COLORECTAL SCREENING 09/04/1996 Colorectal Cancer Screening 09/04/1996 FIT-DNA Q 3 years 09/04/1996 FIT/FOBT Q 1 year 09/04/1996 Flex Sig/CT Colonography Q 5 years 09/04/1996 PNEUMOCOCCAL VACCINE 50+ YEA RS (1 of 1 - PCV) 09/04/2001 ZOSTER VACCINE (1 of 2) 09/04/2001 INFLUENZA VACCINE (#1) 2024 , 12/09/2019, 01/08/2019, Additional history exists COVID-19 Vaccine (5 - 2024-2 6 season) 2024 06/23/2021, 01/14/2021, 06/09/2020, Additional history exists RSV VACCINE (60+ or ) (1 - 1-dose 75+ series) 09/04/2026 DTAP/TDAP/TD VACCINES (3 - T d or Tdap) 05/17/2029 05/17/2019, 11/28/2011, 03/26/2001 Procedures Procedure Name Priority Date/Time Associated Diagnosis Comments BASIC METABOLIC PANEL Routine 11/10/2024 4:22 PM CDT CBC WITH AUTODIFFERENTIAL Routine 2024 4:14 PM CDT from Last 3 Months Results * BASIC METABOLIC PANEL (11/10/2024 4:22 PM CDT) Blood us Nilton Pittman MD CHEMISTRY ORDERABLES Final Resu lt * CBC WITH AUTODIFFERENTIAL (11/10/2024 4:14 PM CDT) Blood Nilton Pittman MD HEMATOLOGY ORDERABLES Final Res ult from Last 3 Months Insurance MEDICARE PART A AND B BCBS SUPP [employer] [facility] SUPP [place] [id number] Care Teams Documentation Writer Relationship Specialty Start Date End Date Dudley Moser DO [address] [address] PCP - General Internal Medicine 07/18/21
--- OUTSIDE RECORDS SUMMARY | 2024-11-27 11:48 | XMS_ITS | Clinical Summary ---
Author Organization [facility] [employer] Address [address] [facility] [place] [address] Care Team Providers Care Quality Rn Name Role Phone Matty Gallegos MD Unavailable [phone] Matty Gallegos MD Primary Care Provider [phone] Source Comments [facility] [employer],non-owned Affiliates and Associated Physician Practices is amultiple site organization consisting of ambulatory clinics and hospital sitesin [place], [place], [place] and [place]. This disclosure is being madepursuant to the Care Everywhere program and may not contain all information available regarding this patient. 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 Gender Identity Not on file Sexual Orientation [...] (1 of 2) 09/04/2001 AAA SCREENING 09/04/2016 DEPRESSION SCREENING 03/26/2024 COVID-19 VACCINE (1 - 2023-2 5 season) 2024 INFLUENZA VACCINE (#1) 2024 Respiratory Syncytial Virus [...] age to complete this topic Insurance MEDICARE [facility] MEDICARE Advance Directives * FULL RESUSCITATION (Latest Code Status on File) Date Activated Date Inactivated Comments 01/17/2011 11:48 AM 01/18/2011 3:25 AM Care Teams Quality Rn Relationship Specialty Start Date End Date Matty Gallegos MD [address] [place] [address] PCP - General 11/17/10 Matty Gallegos MD Family Medicine 05/02/10
[2024-11-27 12:00] LABS: Albumin Level 4.1 g/dL (3.5-5.1); Anion Gap 6 mmol/L (4-12); Blood Urea Nitrogen 23 mg/dL (9-20); Calcium 9.0 mg/dL (8.4-10.2); Carbon Dioxide 27 mmol/L (22-30); Chloride 104 mmol/L (98-107); Creatine Kinase 67 U/L (55-170); Estimated Glomerular Filt Rate 57; Glucose 106 mg/dL (65-110); Potassium 4.5 mmol/L (3.4-5.0); Sodium 137 mmol/L (137-145); Uric Acid 2.6 mg/dL (3.5-8.5)
[2024-11-27 12:14] LABS: Parathyroid Intact 29.5 pg/mL (14.5-75.2)
[2024-11-27 14:37] LABS: Total Protein Urine Random < 5 mg/dL; Ur Ttl Prot Creatinine Ratio < 0.03 mg/mg (0-0.20)
[2024-12-01 10:08] LABS: ANA by IFA Rfx Titer/Pattern Negative (.)
[2024-12-01 14:08] LABS: Immunoglobulin A, Qn 176 mg/dL (61-437); Immunoglobulin G, Qn 941 mg/dL (603-1613); Immunoglobulin M, Qn 30 mg/dL (15-143)
== END 2024-11-27 11:04 | disposition home or self-care (01) ==
LOC: ANHLAB 11:07
PROVIDERS: PCP Internal Medicine; Visit Provider Internal Medicine Nephrology
DX: N17.9 Acute kidney failure, unspecified (principal); D75.839 Thrombocytosis, unspecified; I10 Essential (primary) hypertension
CPT/HCPCS: 36415; 80069; 81003; 82550; 82570; 82784; 83970; 84156; 84550; 85027; 85652; 86038; 86160; 86162; 86334; 86335

== ENCOUNTER 2024-12-01 10:49 | Outpatient (CLI) | payer MEDICARE, SELFPAY ==
--- OUTSIDE RECORDS SUMMARY | 2024-12-01 11:16 | XMS_ITS | Clinical Summary ---
Author Organization [place] [id number] Address [address] [place] [address] Care Team Providers Care Health Education Teacher Name Role Phone Kamran Pink MD Unavailable [phone] Dudley Moser DO Primary Care Provider [phone] Allergies Active Allergy Reactions Criticality Noted Date [...] 08/2019 Assessment & Plan (02/16/2020 2:22 PM BIOMED TECH): Prior diagnosis of Ankylosing Spondylitis based on [...] on file Legal Sex Male 6:52 AM BIOMED TECH Gender Identity Not on file Sexual Orientation Not on file Occupation Industry Job Start Date Job End Date Retired Not on file Not on file Not on file Obstetrics History Last Filed Vital Signs Vital Sign Reading Time Taken Comments Blood Pressure 133/78 06/14/2023 2:12 PM CDT Pulse 87 06/14/2023 2:12 PM CDT Temperature 36.4 C (97.5 F) 05/17/2021 12:54 PM BIOMED TECH Respiratory Rate 14 05/17/2021 2:06 PM BIOMED TECH Oxygen Saturation 97% 05/17/2021 2:06 PM BIOMED TECH Inhaled Oxygen Concentration - - Weight 87.5 [...] Plan Chronic Care Management Improving( 12:58 PM BIOMED TECH) Claudia Gonzáles RN Note: Problem: Chronic Pain Goals: 1. Minimize further functional decline 2. Maximize quality of life 3. Control pain Strategies: - Activity/exercise program recommendation - Conservative stepwise pain medicine strategy with multi-disciplinary approach - Recommend healthy lifestyle strategies and compensatory methods as needed Medical Devices Implanted Type Area Crop Roller Device Identifier Shelf Expiration Date Model / Serial / Lot Synthes 245.876 78mm 6 Hole Low Profile Curved Reconstruction Pelvic 108mm Radius - [id number] Implanted:Qty: 1 on 05/19/2019 by Morteza Narayanan MD at [facility] Plate Pelvis Synthes I 245.876 / / [employer] [id number] 7mm 8mm 100mm Cannulated Self Tap Self Drill Full Thread Hexagon - [id number] Implanted:Qty: 1 on 05/19/2019 by Morteza Narayanan MD at [facility] Right: Pelvis [employer] [id number] / / [employer] [id number] 7mm 8mm 135mm Self Drill Self Tap Cannulated Hexagon Head Foot - [id number] Implanted:Qty: 1 on 05/19/2019 by Morteza Narayanan MD at [facility] Right: Pelvis [employer] [id number] / / Synthes 204.885 3.5mm 6mm 85mm 2.5mm Self Tap Small Hexagonal Socket Low Profile - [id number] Implanted:Qty: 1 on 05/19/2019 by Morteza Narayanan MD at [facility] Pelvis Synthes I 204.885 / / Synthes 204.850 3.5mm 6mm 50mm 2.5mm Self Tap Small Hexagonal Socket Low Profile - [id number] Implanted:Qty: 2 on 05/19/2019 by Morteza Narayanan MD at [facility] Pelvis Synthes I 204.850 / / Synthes 204.846 3.5mm 6mm 46mm 2.5mm Self Tap Small Hexagonal Socket Low Profile - [id number] Implanted:Qty: 3 on 05/19/2019 by Morteza Narayanan MD at [facility] Pelvis Synthes I 204.846 / / Description:One of the 3 scr ews was explanted (IMPLANTED EXPLANTED) Synthes 204.860 3.5mm 6mm 60mm 2.5mm Self Tap Small Hexagonal Socket Low Profile - [id number] Implanted:Qty: 1 on 05/19/2019 by Morteza Narayanan MD at [facility] Pelvis Synthes I 204.860 / / Synthes 204.832 3.5mm 6mm 32mm 2.5mm Self Tap Small Hexagonal Socket Low Profile - [id number] Implanted:Qty: 1 on 05/19/2019 by Morteza Narayanan MD at [facility] Pelvis Synthes I 204.832 / / [employer] [id number] [employer] Stainless Steel Nonsterile Latex Free 5.5-7.5 - [id number] Implanted:Qty: 1 on 05/19/2019 by Morteza Narayanan MD at [facility] Right: Pelvis [employer] [id number] / / [facility] [id number] Ray Suture 2.3mm Iconix Xbraid 2 Needle Intellibraid Tech - [id number] Implanted:Qty: 2 on 10/18/2020 by Kayla Hooper MD at [facility] Left: Femur [facility] [id number] 05/04/2022 [id number] / / [id number] Explanted Type Area Crop Roller Device Identifier Shelf Expiration Date Model / Serial / Lot Synthes 204.870 3.5mm 6mm 70mm 2.5mm Self Tap Small Hexagonal Socket Low Profile - [id number] Implanted:Qty: 1 Explanted:Qty: 1 on 05/19/2019 by Morteza Narayanan MD at [facility] Screw Right: Pelvis Synthes I 204.870 / / Synthes 204.855 3.5mm 6mm 55mm 2.5mm Self Tap Small Hexagonal Socket Low Profile - [id number] Implanted:Qty: 1 Explanted:Qty: 1 on 05/19/2019 at [facility] Pelvis Synthes I 204.855 / / Insurance MEDICARE [facility] MEDICARE Advance Directives For more information, please contact: [phone] * Full Code (Latest Code Status on File) Date Activated Date Inactivated Comments 05/18/2019 4:55 AM 05/22/2019 7:30 PM Care Teams Health Education Teacher Relationship Specialty Start Date End Date Dudley Moser DO [address] [place] [address] PCP - General 02/19/21 Kamran Pink MD [address] [place] [address] Consulting Physician Rheumatology 01/14/20
--- OUTSIDE RECORDS SUMMARY | 2024-12-01 11:16 | XMS_ITS | Clinical Summary ---
Author Organization [facility] Address [address] [facility] [place] [address] Care Team Providers Care Deputy Chief Counsel Name Role Phone Matty Gallegos MD Unavailable [phone] Matty Gallegos MD Primary Care Provider [phone] Source Comments [facility],non-owned Affiliates and Associated Physician Practices is amultiple site organization consisting of ambulatory clinics and hospital sitesin [place], [place], [place] and [place]. This disclosure is being madepursuant to the Care Everywhere program and may not contain all information available regarding this patient. 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
--- OUTSIDE RECORDS SUMMARY | 2024-12-01 11:16 | XMS_ITS | Clinical Summary ---
Author Organization [facility] Tricia [facility] Address [address] [place] [address] Care Team Providers Care Senior Oracle Developer Name Role Phone Dudley Moser DO Primary [...] Abstract 11/10/2024 2:45 PM CDT Office Visit [facility] Oncology and Hematology - [place] [address] [place] [address] Nilton Pittman MD Reactive thrombocytosis (Primary Dx) 11/10/2024 Orders Only [facility] Oncology and Hematology - [place] [address] [place] [address] Nilton Pittman MD 09/15/2024 Refill [facility] Oncology and Hematology - [place] [address] [place] [address] Anai Chen MD 09/15/2024 Refill [facility] Oncology and Hematology - [place] [address] [place] [address] Queta Michel MD 09/09/2024 External Device Data [...] on file 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:55 AM NOVELTY TWISTER OPERATOR Gender Identity Not on file Sexual Orientation [...] st Contact Info) Description 03/12/2025 2:45 PM NOVELTY TWISTER OPERATOR Office Visit [facility] Oncology and Hematology - [place] [address] [facility] [address] [place] [address] Nilton Pittman MD [address] [facility] [address] [place] [address] Health Maintenance Due Date Last Done Comments COLORECTAL SCREENING 09/04/1996 Colorectal Cancer Screening 09/04/1996 [...] WITH AUTODIFFERENTIAL (11/10/2024 4:14 PM CDT) Blood us Nilton Pittman MD HEMATOLOGY ORDERABLES Final Res ult from Last 3 Months Insurance MEDICARE PART A AND B [facility] [place] [id number] Care Teams Senior Oracle Developer Relationship Specialty Start Date End Date Dudley oMser DO [address] [address] PCP - General Internal Medicine 07/18/21
--- OUTSIDE RECORDS SUMMARY | 2024-12-01 11:16 | XMS_ITS | Patient Health Record ---
Author Organization [facility] Address [address] [facility] [address] [place] [address] Support Name Relationship Address Phone REGINA REA Emergency Contact Unknown Unavailabl e JAYA REA Guarantor Unknown [phone] Reason For Referral No Information Medications Medication SIG (Take, Route, Frequency, Duration) Notes Start Date End Date Status LUER-CRISTOBAL SYRINGE-NEEDLE 3 mL 23 gauge x 1 1/2 SYRINGE, EMPTY DISPOSABLE MISCELLANEOUS *Reorder from [employer] for eRx and Interaction Alerts* 07/29/2021 Active Wellbutrin SR 200 MG Tablet Extended Release 12 Hour Oral 07/29/2021 Active traMADol HCl 50 MG Tablet Oral 07/29/2021 Active Testosterone Cypionate 200 MG/ML Solution Intramuscular 07/29/2021 Active Losartan Potassium 25 MG Tablet Oral 07/29/2021 Active Pregabalin 50 MG Capsule Oral 07/29/2021 Active Pregabalin 225 MG Capsule Oral 07/29/2021 Active DULoxetine HCl 30 MG Capsule Delayed Release Particles Oral 07/29/2021 Active Meloxicam 7.5 MG Tablet Oral 07/29/2021 Active oxyCODONE HCl 80 mg TABLET, SUSTAINED RELEASE 12HR ORAL *Pick strength-form from [employer] for eRX* 07/29/2021 Active Escitalopram Oxalate 10 MG Tablet Oral 07/29/2021 Active hydrOXYzine HCl 25 MG Tablet Oral 07/29/2021 Active HYDROcodone-Acetamin ophen 5-325 MG Tablet Oral 07/29/2021 Active diazePAM 5 MG Tablet Oral 07/29/2021 Active Tamsulosin HCl 0.4 MG Capsule Oral 07/29/2021 Active Aspirin 81 MG Capsule Oral *Pick strength-form from [employer] for eRX* 07/29/2021 Active Morphine Sulfate 15 MG Tablet Oral 07/29/2021 Active HYDROcodone-Acetamin ophen 7.5-325 MG Tablet Oral 07/29/2021 Active QUEtiapine Fumarate 50 MG Tablet Oral 07/29/2021 Active Doxazosin Mesylate 8 MG Tablet Oral 07/29/2021 Active QUEtiapine Fumarate 100 MG Tablet Oral 07/29/2021 Active amLODIPine Besylate 10 MG Tablet Oral 07/29/2021 Active Immunizations Vaccine Route Administration Date Status Comme nts Moderna Covid-19 Vaccine 1st dose Unknown 05/12/2020 Ad ministered Moderna Covid-19 Vaccine 1st dose Unknown 06/09/2020 Ad ministered Moderna Covid-19 Vaccine 1st dose Unknown 01/14/2021 Ad ministered Moderna Covid-19 Vaccine 1st dose Unknown 06/23/2021 Ad ministered Social History Social History Additional Details Category Social Info Options Details Migrated Social History Migrated Social History Alcohol Intake: None 07/12/2021,Tobacco Years: Never smoker 06/08/2021 Plan Of Treatment No Information Insurance Providers Payer Name Payer Address Payer Phone Subscriber Number Group Number Insured Name Patient Relationship to Insured Coverage Start Date Coverage End Date Medicare-I l Medicare [address] [place] [address] [id number] JAYA REA Self - [facility] [address] [place] [address] [id number] JAYA REA Self - patient is the insured Medical (General) History Surgical History Surgery Date(Month/Year) Neurosurgery 03/26/1993 Any surgical history 03/26/1994
[2024-12-01 11:44] LABS: Total Volume 24 Hour Urine 1900 ml
== END 2024-12-01 10:50 | disposition home or self-care (01) ==
PROVIDERS: PCP Internal Medicine; Visit Provider Internal Medicine Nephrology
DX: N17.9 Acute kidney failure, unspecified (principal); D75.839 Thrombocytosis, unspecified; I10 Essential (primary) hypertension
CPT/HCPCS: 81050; 84540

== ENCOUNTER 2024-12-02 14:36 | Outpatient (CLI) | payer MEDICARE, SELFPAY ==
--- NOTE | ~2024-12-02 | US_ITS ---
EXAMINATION: US renal BI DATE: 12/02/2024 14:55 INDICATION: Acute kidney failure, unspecified. TECHNIQUE: Multiple ultrasound grayscale images of the kidneys were obtained. COMPARISON: CT 12/20/2018, 05/17/2019 FINDINGS: The right kidney measures 11.4 x 6.0 x 6.0 cm. The left kidney measures 11.7 x 5.9 x 6.8 cm. The kidneys demonstrate normal parenchymal echogenicity. There is no hydronephrosis. The prostate is enlarged. IMPRESSION: 1. Normal kidneys. No hydronephrosis. Reviewed, dictated and finalized at location E.
== END 2024-12-02 14:37 | disposition home or self-care (01) ==
LOC: MICIMG 14:37
PROVIDERS: PCP Internal Medicine; Visit Provider Internal Medicine Nephrology
DX: N17.9 Acute kidney failure, unspecified (principal); D75.839 Thrombocytosis, unspecified; I10 Essential (primary) hypertension
CPT/HCPCS: 76770

== ENCOUNTER 2025-03-12 14:12 | Outpatient (CLI) | payer MEDICARE, SELFPAY ==
[2025-03-12 14:27] LABS: Hematocrit 49.1 % (42.0-52.0); Hemoglobin 16.4 g/dL (14.0-18.0); Immature Granulocyte Percent A 1.7 % (0-0.5); Lymphocytes Absolute Auto 2.12 K/mm3 (0.9-3.2); Mean Corpuscular HGB Conc 33.4 g/dl (32-36); Mean Corpuscular Hemoglobin 34.1 pg (26-34); Mean Corpuscular Volume 102.1 fl (80-100); Nucleated Red Blood Cells Absolute Auto 0.000 K/mm3 (0.0-0.012); Nucleated Red Blood Cells Perc 0.0 % (0.0-0.2); Platelet Count Result 589 k/mm3 (150-375); Red Blood Count 4.81 M/mm3 (4.6-6.20); White Blood Count 10.6 K/mm3 (4.5-10.0)
[2025-03-12 14:30] LABS: Blood Urea Nitrogen 22 mg/dL (8-26); Carbon Dioxide 24 mmol/L (22-30); Chloride 106 mmol/L (98-109); Estimated Glomerular Filt Rate 50; Glucose 93 mg/dL (70-105); Ionized Calcium (POC) 1.19 mmol/L (1.11-1.31); Potassium 4.4 mmol/L (3.5-4.9); Sodium 141 mmol/L (138-146)
--- OUTSIDE RECORDS SUMMARY | 2025-03-12 14:45 | XMS_ITS | Encounter Summary ---
Author Organization [facility] Address [address] [place] [address] Care Team Providers Care General Operations Agent Name Role Phone Dudley Moser DO Primary Care Provider Reason for Visit * Reason Comments Follow Up Encounter Details Date Type Department Care Team (Late st Contact Info) Description 03/12/2025 2:45 PM CONFERENCE PLANNING MANAGER Office Visit [facility] Oncology and Hematology - [place] [address] [facility] [address] [place] [address] Nilton Pittman MD [address] [facility] [address] [place] [address] Reactive thrombocytosis (Primary Dx) Social History Tobacco Use Types Packs/Day Years Used Date Smoking Tobacco: Never Alcohol Use Standard Drinks/Week Comments Yes 0 (1 standard drink = 0.6 oz pur e alcohol) Sex and Gender Information Value Date Recorded Sex Assigned at Not on file 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:55 AM CONFERENCE PLANNING MANAGER Gender Identity Not on file Sexual Orientation Not on file documented as of this encounter Last Filed Vital Signs Vital Sign Reading Time Taken Comments Blood Pressure 143/82 03/12/2025 2:39 PM CONFERENCE PLANNING MANAGER Pulse 67 03/12/2025 2:31 PM CONFERENCE PLANNING MANAGER Temperature 36.8 C (98.2 F) 03/12/2025 2:31 PM CONFERENCE PLANNING MANAGER Respiratory Rate 15 03/12/2025 2:31 PM CONFERENCE PLANNING MANAGER Oxygen Saturation 95% 03/12/2025 2:31 PM CONFERENCE PLANNING MANAGER Inhaled Oxygen Concentration - - Weight 92.8 kg (204 lb 9.6 oz) 03/12/2025 2:31 P M CONFERENCE PLANNING MANAGER Height - - Body Mass Index 27.75 09/22/2021 11:43 AM CDT documented in this encounter Progress Notes * Nilton Pittman MD - 03/12/2025 3:04 PM CST HEMATOLOGY / ONCOLOGY PROGRESS NOTE Patient Identification: Name: Paul Dutton Age: 74 y.o. Sex: male : 1950 DIAGNOSIS Reactive thrombocytosis CURRENT TREATMENT Hydroxyurea 500 mg daily started October 30, 2022 Baby aspirin TREATMENT HISTORY SUBJECTIVE Patient came to the office for follow-up visit. He has been taking hydroxyurea and tolerating it well. Denies any chest pain shortness of breath. Been dealing with the chronic left buttock pain. No bleeding and bruising. No other new complaints. Review of system [...] urgency Integumentary system: no lymphadenopathy, sweats, flushing Musculoskeletal:Complain of chronic left buttock pain Neurological: Patient did not mention blurry or disturbed vision, numbness/weakness, dizziness Skin: No lumps, bumps or rashes. 12 point review of system was reviewed Objective: Vital signs in [...] 16.5 WBC 9.7 platelet 523,000 creatinine 3.4 Labs from November 10 showed creatinine 3.8 WBC 9.1 hemoglobin 16 platelet 571,000 Labs from March 12 showed WBC 10.6 hemoglobin 16.4 platelet 589,000 creatinine 1.4 Assessment: Plan: Patient Active Problem List Diagnosis Date Noted Reactive thrombocytosis 07/18/2021 Reactive thrombocytosis. JAK2 mutation negative and elevated C-reactive protein. This is likely secondary to the chronic left buttock pain and worsening costochondritis. Hydroxyurea 500 mg daily started on October 30, 2022. Lab noted. Platelet count has gone up slightly. He is asymptomatic. Will continue the current dose of hydroxyurea 500 mg daily and repeat labs will be done in 4 months. He will receive a refill today. Hyperuricemia prevention. Continue allopurinol with adequate hydration. Chronic left buttock pain. He will continue to follow-up with the primary care physician. Follow-up in 4 months 03/12/2025 Nilton Pittman MD [place] PLANNING MANAGER documented in this encounter Plan of Treatment Upcoming Encounters Date Type Department Care Team (Late st Contact Info) Description 07/14/2025 2:00 PM CDT Office Visit [facility] Oncology and Hematology - [place] [address] [facility] [address] [place] [address] Nilton Pittman MD [address] [facility] [address] [place] [address] Scheduled Orders Name Type Priority Associated Diagnoses Orde r Schedule CBC WITH DIFFERENTIAL Lab Stat Reactive thrombocytosis Expected: 07/02/2025, Expires: 03/12/2026 BASIC METABOLIC PANEL Lab Stat Reactive thrombocytosis Expected: 07/02/2025, Expires: 03/12/2026 documented as of this encounter Visit Diagnoses Diagnosis Reactive thrombocytosis- Primary documented in this encounter Care Teams General Operations Agent Relationship Specialty Start Date End Date Dudley Moser DO [address] [facility] [address] [place] [address] PCP - General Internal Medicine 07/18/21 documented as of this encounter
--- OUTSIDE RECORDS SUMMARY | 2025-03-12 15:16 | XMS_ITS | Patient Health Record ---
Author Organization [facility] [employer] Address [address] [facility] [address] [place] [address] Support Name Relationship Address Phone REGINA REA Emergency Contact Unknown Unavailabl e JAYA REA Guarantor Unknown [phone] Reason For Referral No Information Medications Medication SIG (Take, Route, Frequency, Duration) Notes Start Date End Date Status LUER-CRISTOBAL SYRINGE-NEEDLE 3 mL 23 gauge x 1 1/2 SYRINGE, EMPTY DISPOSABLE MISCELLANEOUS *Reorder from [employer] for eRx and Interaction Alerts* 07/29/2021 Active [...] SUSTAINED RELEASE 12HR ORAL *Pick strength-form from [employer] for eRX* 07/29/2021 Active Escitalopram Oxalate 10 MG Tablet Oral 07/29/2021 Active hydrOXYzine HCl 25 MG Tablet Oral 07/29/2021 Active HYDROcodone-Acetamin ophen 5-325 MG Tablet Oral 07/29/2021 Active diazePAM 5 MG Tablet Oral 07/29/2021 Active Tamsulosin HCl 0.4 MG Capsule Oral 07/29/2021 Active Aspirin 81 MG Capsule Oral *Pick strength-form from [employer] for eRX* 07/29/2021 Active Morphine Sulfate 15 [...] Date Medicare-I l Medicare [address] [place] [address] [id number] JAYA REA Self - [facility] the insured [facility] [address] [place] [address] [id number] JAYA REA Self - patient is the insured Medical (General) History Surgical History Surgery Date(Month/Year) Neurosurgery 03/26/1993 Any surgical history 03/26/1994
--- OUTSIDE RECORDS SUMMARY | 2025-03-12 15:16 | XMS_ITS | Clinical Summary ---
Author Organization [facility] Address [address] [place] [address] Care Team Providers Care Party Plan Salesperson Name Role Phone Matty Gallegos MD Unavailable [phone] Matty Gallegos MD Primary Care Provider [phone] Source Comments [facility],non-owned Affiliates and Associated Physician Practices is amultiple site organization consisting of ambulatory clinics and hospital sitesin [place], [place], [place] and [place]. This disclosure is being madepursuant to the Care Everywhere program and may not contain all information available regarding this patient. Last updated 17.[facility] Allergies No known active allergies Medications * Be aware that medications may not be up to date on this document. Always verify current medications with the patient. clonazePAM (KLONOPIN) [...] on file Legal Sex Male 9:51 AM ROASTER OPERATOR Gender Identity Not on file Sexual [...] DEPRESSION SCREENING 03/26/2024 COVID-19 VACCINE (1 - 2024-2 6 season) 2024 INFLUENZA VACCINE (#1) 2024 Respiratory [...] age to complete this topic Insurance MEDICARE [facility] MEDICARE Advance Directives * FULL RESUSCITATION (Latest Code Status on File) Date Activated Date Inactivated Comments 01/17/2011 11:48 AM 01/18/2011 3:25 AM Care Teams Party Plan Salesperson Relationship Specialty Start Date End Date Matty Gallegos MD [address] [place] [address] PCP - General 11/17/10 Matty Gallegos MD Family Medicine 05/02/10
--- OUTSIDE RECORDS SUMMARY | 2025-03-12 15:16 | XMS_ITS | Encounter Summary ---
Author Organization [facility] Address [address] [place] [address] Care Team Providers Care Flexographic Press Set Up Operator Name Role Phone Dudley Moser DO Primary Care Provider Encounter Details Date Type Department Care Team (Late st Contact Info) Description 03/10/2025 External Device Data [place] ABSTRACTION Provider, Abstract NO ADDRESS ON FILE Social History Tobacco Use Types Packs/Day Years Used Date Smoking Tobacco: Never Alcohol Use Standard Drinks/Week Comments Yes 0 (1 standard drink = 0.6 oz pur e alcohol) Sex and Gender Information Value Date Recorded Sex Assigned at Not on file 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:55 AM ENVIRONMENTAL CONSERVATION OFFICER Gender Identity Not on file Sexual Orientation Not on file documented as of this encounter Plan of Treatment Upcoming Encounters Date Type Department Care Team (Late st Contact Info) Description 07/14/2025 2:00 PM CDT Office Visit [facility] Oncology and Hematology - [place] [address] [place] [address] [facility] [address] [place] [address] Nilton Pittman MD [address] [facility] [address] [place] [address] documented as of this encounter Visit Diagnoses Not on filedocumented in this encounter Care Teams Flexographic Press Set Up Operator Relationship Specialty Start Date End Date Dudley Moser DO [address] [facility] [address] [place] [address] PCP - General Internal Medicine 07/18/21 documented as of this encounter
--- OUTSIDE RECORDS SUMMARY | 2025-03-12 15:16 | XMS_ITS | Clinical Summary ---
Author Organization [facility] [place] Tricia Dai Address [address] [place] [address] Care Team Providers Care Information Management Specialist Name Role Phone Dudley Moser DO Primary [...] (500 mg) by mouth daily. 90 Capsule 3 5 Active allopurinoL (ZYLOPRIM) 300 mg tablet Take 1 Tablet (300 mg) by mouth daily. 90 Tablet 2 5 03/12/20 Discontinu ed(Reorder ) hydroxyurea (HYDREA) 500 mg capsule Take 1 capsule by mouth once daily 90 Capsule 3 5 03/12/20 Discontinu ed(Reorder ) Active Problems Problem Noted Date Diagnosed Date Reactive thrombocytosis 07/18/2021 Encounters Date Type Department Care Team Description 03/12/2025 2:45 PM VIDEO CONTROL OPERATOR Office Visit [facility] [place] Oncology and Hematology - [place] [address] [facility] [address] [place] [address] Nilton Pittman MD Reactive thrombocytosis (Primary Dx) 03/10/2025 External Device Data STL ABSTRACTION Provider, Abstract 03/10/2025 External Device Data STL ABSTRACTION Provider, Abstract 12/17/2024 Refill [facility] [place] Oncology and [facility]ology [facility] [address] [facility] [address] [facility] [place] [address] Queta Michel MD from Last 3 Months Family History Medical [...] on file 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:55 AM VIDEO CONTROL OPERATOR Gender Identity Not on file Sexual Orientation Not on file Last Filed Vital Signs Vital Sign Reading Time Taken Comments Blood Pressure 143/82 03/12/2025 2:39 PM VIDEO CONTROL OPERATOR Pulse 67 03/12/2025 2:31 PM VIDEO CONTROL OPERATOR Temperature 36.8 C (98.2 F) 03/12/2025 2:31 PM VIDEO CONTROL OPERATOR Respiratory Rate 15 03/12/2025 2:31 PM VIDEO CONTROL OPERATOR Oxygen Saturation 95% 03/12/2025 2:31 PM VIDEO CONTROL OPERATOR Inhaled Oxygen Concentration - - Weight 92.8 kg (204 lb 9.6 oz) 03/12/2025 2:31 P M VIDEO CONTROL OPERATOR Height 182.9 cm (6') 09/22/2021 11:43 AM CDT Body Mass Index 27.75 09/22/2021 11:43 AM CDT Plan of Treatment Upcoming Encounters Date Type Department Care Team (Late st Contact Info) Description 07/14/2025 2:00 PM CDT Office Visit [facility] [place] Oncology and Hematology [facility] [address] [address] [facility] [place] [address] Nilton Pittman MD [address] [place] [address] Health Maintenance Due Date Last [...] 12/09/2019, 01/08/2019, Additional history exists COVID-19 Vaccine (2024-2 6 season) 2024 06/23/2021, 01/14/2021, 06/09/2020, Additional history exists RSV VACCINE (60+ or ) (1 - 1-dose 75+ series) 09/04/2026 DTAP/TDAP/TD VACCINES (3 - T d or Tdap) 05/17/2029 05/17/2019, 11/28/2011, 03/26/2001 Insurance MEDICARE PART A AND B BCBS SUPP [facility] SUPP RANDA VERDUZCO [id number] Care Teams Information Management Specialist Relationship Specialty Start Date End Date Dudley Moser DO [address] [facility] [address] [place] [address] PCP - General Internal Medicine 07/18/21
--- OUTSIDE RECORDS SUMMARY | 2025-03-12 15:16 | XMS_ITS | Clinical Summary ---
Author Organization [place] [id number] [facility] Address [address] [place] [address] Care Team Providers Care Timber Deadener Name Role Phone Kamran Pink MD Unavailable [phone] Dudley Moser DO Primary Care Provider [phone] Allergies Active Allergy Reactions Criticality Noted Date [...] 08/2019 Assessment & Plan (02/16/2020 2:22 PM HUMAN RESOURCES COMMUNICATIONS MANAGER): Prior diagnosis of Ankylosing Spondylitis based on [...] on file Legal Sex Male 6:52 AM HUMAN RESOURCES COMMUNICATIONS MANAGER Gender Identity Not on file Sexual Orientation Not on file Occupation Industry Job Start Date Job End Date Retired Not on file Not on file Not on file Last Filed Vital Signs Vital Sign Reading Time Taken Comments Blood Pressure 133/78 06/14/2023 2:12 PM CDT Pulse 87 06/14/2023 2:12 PM CDT Temperature 36.4 C (97.5 F) 05/17/2021 12:54 PM HUMAN RESOURCES COMMUNICATIONS MANAGER Respiratory Rate 14 05/17/2021 2:06 PM HUMAN RESOURCES COMMUNICATIONS MANAGER Oxygen Saturation 97% 05/17/2021 2:06 PM HUMAN RESOURCES COMMUNICATIONS MANAGER Inhaled Oxygen Concentration - - Weight 87.5 [...] Assessment 10/18/2021 10/18/2020 Covid-19 Vaccine (4 - 2024-2 6 season) 2024 01/14/2021, 06/09/2020, 05/12/2020 Influenza Vaccine (#1) 2024 , 12/09/2019, 12/09/2019, Additional history exists DTaP/Tdap/Td Vaccine (3 - Td or Tdap) 05/17/2029 05/17/2019, 11/28/2011, 03/26/2001 Hepatitis C Screening Completed 01/16/2007 Goals Goal Patient Goal Type Associated Problems Recent Progress Patient-Stated? Author CCM Chronic Pain Care Plan Chronic Care Management Improving( 12:58 PM HUMAN RESOURCES COMMUNICATIONS MANAGER) Claudia Gonzáles, RN Note: Problem: Chronic Pain Goals: 1. Minimize further functional decline 2. Maximize quality of life 3. Control pain Strategies: - Activity/exercise program recommendation - Conservative stepwise pain medicine strategy with multi-disciplinary approach - Recommend healthy lifestyle strategies and compensatory methods as needed Medical Devices Implanted Type Area Director Strategy Device Identifier Shelf Expiration Date Model / Serial / Lot Synthes 245.876 78mm 6 Hole Low Profile Curved Reconstruction Pelvic 108mm Radius - [id number] Implanted:Qty: 1 on 05/19/2019 by Morteza Narayanan MD at [facility] Plate Pelvis Synthes I 245.876 / / [employer] [id number] 7mm 8mm 100mm Cannulated Self Tap Self Drill Full Thread Hexagon - [id number] Implanted:Qty: 1 on 05/19/2019 by Morteza Narayanan MD at [facility] Right: Pelvis [employer] [id number] / / [employer] [id number] 7mm 8mm 135mm Self Drill Self Tap Cannulated Hexagon Head Foot - [id number] Implanted:Qty: 1 on 05/19/2019 by Morteza Narayanan MD at [facility] Right: Pelvis [employer] [id number] / / Synthes 204.885 3.5mm 6mm 85mm 2.5mm Self Tap Small Hexagonal Socket Low Profile - [id number] Implanted:Qty: 1 on 05/19/2019 by Morteza Narayanan MD at [facility] Pelvis Synthes I 204.885 / / Synthes 204.850 3.5mm 6mm 50mm 2.5mm Self Tap Small Hexagonal Socket Low Profile - [id number] Implanted:Qty: 2 on 05/19/2019 by Morteza Narayanan MD at [facility] Pelvis Synthes I 204.850 / / Synthes 204.846 3.5mm 6mm 46mm 2.5mm Self Tap Small Hexagonal Socket Low Profile - [id number] Implanted:Qty: 3 on 05/19/2019 by Morteza Narayanan MD at [facility] Pelvis Synthes I 204.846 / / Description:One of the 3 scr ews was explanted (IMPLANTED EXPLANTED) Synthes 204.860 3.5mm 6mm 60mm 2.5mm Self Tap Small Hexagonal Socket Low Profile - [id number] Implanted:Qty: 1 on 05/19/2019 by Morteza Narayanan MD at [facility] Pelvis Synthes I 204.860 / / Synthes 204.832 3.5mm 6mm 32mm 2.5mm Self Tap Small Hexagonal Socket Low Profile - [id number] Implanted:Qty: 1 on 05/19/2019 by Morteza Narayanan MD at [facility] Pelvis Synthes I 204.832 / / [employer] [id number] Washer Orthopedic Stainless Steel Nonsterile Latex Free 5.5-7.5 - [id number] Implanted:Qty: 1 on 05/19/2019 by Morteza Narayanan MD at [facility] Right: Pelvis [employer] [id number] / / [facility] [id number] Jadwin Suture 2.3mm Iconix Xbraid 2 Needle Intellibraid Tech - [id number] Implanted:Qty: 2 on 10/18/2020 by Kayla Hooper MD at [facility] Left: Femur [facility] [id number] 05/04/2022 [id number] / / [id number] Explanted Type Area Director Strategy Device Identifier Shelf Expiration Date Model / Serial / Lot Synthes 204.870 3.5mm 6mm 70mm 2.5mm Self Tap Small Hexagonal Socket Low Profile - [id number] Implanted:Qty: 1 Explanted:Qty: 1 on 05/19/2019 by Morteza Narayanan MD at [facility] Screw Right: Pelvis Synthes I 204.870 / / Synthes 204.855 3.5mm 6mm 55mm 2.5mm Self Tap Small Hexagonal Socket Low Profile - [id number] Implanted:Qty: 1 Explanted:Qty: 1 on 05/19/2019 at [facility] Pelvis Synthes I 204.855 / / Insurance MEDICARE MEDICARE [facility] MEDICARE Advance Directives For more information, please contact: [phone] * Full Code (Latest Code Status on File) Date Activated Date Inactivated Comments 05/18/2019 4:55 AM 05/22/2019 7:30 PM Care Teams Timber Deadener Relationship Specialty Start Date End Date Dudley Moser DO [address] [place] [address] PCP - General 02/19/21 Kamran Pink MD [address] [place] [address] Consulting Physician Rheumatology 01/14/20
== END 2025-03-12 14:13 | disposition home or self-care (01) ==
LOC: ANHLAB 14:13
PROVIDERS: PCP Internal Medicine; Visit Provider Internal Medicine Hematology & Oncology
DX: D75.838 Other thrombocytosis (principal)
CPT/HCPCS: 36415; 80047; 85025

== ENCOUNTER 2025-03-25 13:14 | Outpatient (CLI) | payer MEDICARE, SELFPAY ==
--- OUTSIDE RECORDS SUMMARY | 2025-03-25 13:17 | XMS_ITS | Patient Health Record ---
Author Organization [facility] Address [address] [facility] [address] [place] [address] Support Name Relationship Address Phone REGINA REA Emergency Contact Unknown Unavailabl e JAYA REA Guarantor Unknown [phone] Reason For Referral No Information Medications Medication SIG (Take, Route, Frequency, Duration) Notes Start Date End Date Status LUER-CRISTOBAL SYRINGE-NEEDLE 3 mL 23 gauge x 1 1/2 SYRINGE, EMPTY DISPOSABLE MISCELLANEOUS *Reorder from [employer] for eRx and Interaction Alerts* 07/29/2021 Active [...] SUSTAINED RELEASE 12HR ORAL *Pick strength-form from [employer] for eRX* 07/29/2021 Active Escitalopram Oxalate 10 MG Tablet Oral 07/29/2021 Active hydrOXYzine HCl 25 MG Tablet Oral 07/29/2021 Active HYDROcodone-Acetamin ophen 5-325 MG Tablet Oral 07/29/2021 Active diazePAM 5 MG Tablet Oral 07/29/2021 Active Tamsulosin HCl 0.4 MG Capsule Oral 07/29/2021 Active Aspirin 81 MG Capsule Oral *Pick strength-form from [employer] for eRX* 07/29/2021 Active Morphine Sulfate 15 [...] Date Medicare-I l Medicare [address] [place] [address] [id number] JAYA REA Self - [facility] [address] [place] [address] [id number] JAYA REA Self - patient is the insured Medical (General) History Surgical History Surgery Date(Month/Year) Neurosurgery 03/26/1993 Any surgical history 03/26/1994
--- OUTSIDE RECORDS SUMMARY | 2025-03-25 13:17 | XMS_ITS | Data Portability ---
[facility] Address [address] [place] [address] Assessment No assessment recorded. Plan of Treatment [...] dose or 50 mcg/0.25mL dose 05/12/2020 completed Luz House MA [place], [place] - SI 05/12/2020 16:28:00 COVID-19, mRNA, LNP-S, PF, 100 mcg/0.5mL dose or 50 mcg/0.25mL dose 06/09/2020 completed Melissa Gallardo MA [facility] SI 06/09/2020 15:06:11 Past Encounters Encounter ID Performer Location Encounter Start Date Encounter Closed Date Diagnosis/Indication Diagnosis SNOMED-CT Code Diagnosis ICD10 Code Diagnosis IMO Codes Diagnosis Note [id number] MD Shon Welsh [address] [place] [address] 05/12/2020 14:46:18 05/13/2020 07:18:00 Administration of SARS-CoV-2 antigen vaccine 517661917 Z23 [id number] MD Shon Welsh [address] [place] [address] 06/09/2020 14:41:13 06/10/2020 14:21:28 Administration of SARS-CoV-2 antigen vaccine [id number] Z23 Health Concerns Section Related Observation LastModified by Organization Detai ls LastModified Time None Recorded Concern Status LastModified by Organization Details LastModified Time None Recorded Advance Directives Directive None Recorded Payers Insurance Date Sequence Insurance Name Policy Number Policy Geronimo Covered Member ID Geronimo Member ID Guarantor Name 08/23/2023 [place] [facility] Paul Dutton [id number] Paul Dutton 08/23/2023 1 [place] Paul Dutton [id number] Paul Dutton
--- OUTSIDE RECORDS SUMMARY | 2025-03-25 13:17 | XMS_ITS | Clinical Summary ---
Author Organization [facility] Address [address] [place] [address] Care Team Providers Care Aerial Planting And Cultivation Manager Name Role Phone Matty Gallegos MD Unavailable [phone] Matty Gallegos MD Primary Care Provider [phone] Source Comments [facility],non-owned Affiliates and Associated Physician Practices is amultiple site organization consisting of ambulatory clinics and hospital sitesin [place], [place], [place] and [place]. This disclosure is being madepursuant to the Care Everywhere program and may not contain all information available regarding this patient. 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
--- OUTSIDE RECORDS SUMMARY | 2025-03-25 13:17 | XMS_ITS | Clinical Summary ---
Author Organization [place] [id number] [facility] Address [address] [place] [address] Care Team Providers Care Warehouse Stocker Name Role Phone Kamran Pink MD Unavailable [phone] Dudley Moser DO Primary Care Provider [phone] Allergies Active Allergy Reactions Criticality Noted Date [...] 08/2019 Assessment & Plan (02/16/2020 2:22 PM JAVASCRIPT FRONT END DEVELOPER): Prior diagnosis of Ankylosing Spondylitis based on [...] on file Legal Sex Male 6:52 AM JAVASCRIPT FRONT END DEVELOPER Gender Identity Not on file Sexual Orientation Not on file Occupation Industry Job Start Date Job End Date Retired Not on file Not on file Not on file Last Filed Vital Signs Vital Sign Reading Time Taken Comments Blood Pressure 133/78 06/14/2023 2:12 PM CDT Pulse 87 06/14/2023 2:12 PM CDT Temperature 36.4 C (97.5 F) 05/17/2021 12:54 PM JAVASCRIPT FRONT END DEVELOPER Respiratory Rate 14 05/17/2021 2:06 PM JAVASCRIPT FRONT END DEVELOPER Oxygen Saturation 97% 05/17/2021 2:06 PM JAVASCRIPT FRONT END DEVELOPER Inhaled Oxygen Concentration - - Weight 87.5 [...] Plan Chronic Care Management Improving( 12:58 PM JAVASCRIPT FRONT END DEVELOPER) Claudia Gonzáles, RN Note: Problem: Chronic Pain Goals: 1. Minimize further functional decline 2. Maximize quality of life 3. Control pain Strategies: - Activity/exercise program recommendation - Conservative stepwise pain medicine strategy with multi-disciplinary approach - Recommend healthy lifestyle strategies and compensatory methods as needed Medical Devices Implanted Type Area Traffic Court Magistrate Device Identifier Shelf Expiration Date Model / Serial / Lot Synthes 245.876 78mm 6 Hole Low Profile Curved Reconstruction Pelvic 108mm Radius - [id number] Implanted:Qty: 1 on 05/19/2019 by Morteza Narayanan MD at [facility] Plate Pelvis Synthes I 245.876 / / [employer] [id number] 7mm 8mm 100mm Cannulated Self Tap Self Drill Full Thread Hexagon - [id number] Implanted:Qty: 1 on 05/19/2019 by Morteza Narayanan MD at [facility] Right: Pelvis [employer] [id number] / / [employer] [id number] 7mm 8mm 135mm Self Drill Self Tap Cannulated Hexagon Head Foot - [id number] Implanted:Qty: 1 on 05/19/2019 by Morteza Narayanan MD at [facility] Right: Pelvis [employer] [id number] / / Synthes 204.885 3.5mm 6mm 85mm 2.5mm Self Tap Small Hexagonal Socket Low Profile - [id number] Implanted:Qty: 1 on 05/19/2019 by Morteza Narayanan MD at [facility] Pelvis Synthes I 204.885 / / Synthes 204.850 3.5mm 6mm 50mm 2.5mm Self Tap Small Hexagonal Socket Low Profile - [id number] Implanted:Qty: 2 on 05/19/2019 by Morteza Narayanan MD at [facility] Pelvis Synthes I 204.850 / / Synthes 204.846 3.5mm 6mm 46mm 2.5mm Self Tap Small Hexagonal Socket Low Profile - [id number] Implanted:Qty: 3 on 05/19/2019 by Morteza Narayanan MD at [facility] Pelvis Synthes I 204.846 / / Description:One of the 3 scr ews was explanted (IMPLANTED EXPLANTED) Synthes 204.860 3.5mm 6mm 60mm 2.5mm Self Tap Small Hexagonal Socket Low Profile - [id number] Implanted:Qty: 1 on 05/19/2019 by Morteza Narayanan MD at [facility] Pelvis Synthes I 204.860 / / Synthes 204.832 3.5mm 6mm 32mm 2.5mm Self Tap Small Hexagonal Socket Low Profile - [id number] Implanted:Qty: 1 on 05/19/2019 by Morteza Narayanan MD at [facility] Pelvis Synthes I 204.832 / / [employer] [id number] Washer Orthopedic Stainless Steel Nonsterile Latex Free 5.5-7.5 - [id number] Implanted:Qty: 1 on 05/19/2019 by Morteza Narayanan MD at [facility] Right: Pelvis [employer] [id number] / / [facility] [id number] [place] Suture 2.3mm Iconix Xbraid 2 Needle Intellibraid Tech - [id number] Implanted:Qty: 2 on 10/18/2020 by Kayla Hooper MD at [facility] Left: Femur [facility] [place] [facility] [id number] 05/04/2022 [id number] / / [id number] Explanted Type Area Traffic Court Magistrate Device Identifier Shelf Expiration Date Model / Serial / Lot Synthes 204.870 3.5mm 6mm 70mm 2.5mm Self Tap Small Hexagonal Socket Low Profile - [id number] Implanted:Qty: 1 Explanted:Qty: 1 on 05/19/2019 by Morteza Narayanan MD at [facility] Screw Right: Pelvis Synthes I 204.870 / / Synthes 204.855 3.5mm 6mm 55mm 2.5mm Self Tap Small Hexagonal Socket Low Profile - [id number] Implanted:Qty: 1 Explanted:Qty: 1 on 05/19/[address] [facility] Pelvis Synthes I 204.855 / / Insurance MEDICARE MEDICARE [facility] [address] [place], [facility] MEDICARE [facility] MEDICARE Advance Directives For more information, please contact: [phone] * Full Code (Latest Code Status on File) Date Activated Date Inactivated Comments 05/18/2019 4:55 AM 05/22/2019 7:30 PM Care Teams Warehouse Stocker Relationship Specialty Start Date End Date Dudley Moser DO [address] [place] [address] PCP - General 02/19/21 Kamran Pink MD [address] [place] [address] Consulting Physician Rheumatology 01/14/20
--- OUTSIDE RECORDS SUMMARY | 2025-03-25 13:17 | XMS_ITS | Clinical Summary ---
Author Organization [facility] Address [address] [place] [address] Care Team Providers Care Vault Maker Name Role Phone None, Provider MD Primary [...] Problem Noted Date Diagnosed Date Ankylosing spondylitis 12/08/2019 Social History Tobacco Use Types Packs/Day Years Used Date Smoking Tobacco: Never Smokeless Tobacco: Never Sex and Gender Information Value Date Recorded Sex Assigned at Not on file Legal Sex Male 1:06 PM CDT Gender Identity Not on file Sexual Orientation Not on file Last Filed Vital Signs Vital Sign Reading Time Taken Comments Blood Pressure 154/81 02/02/2020 12:57 PM METER AND SERVICE LINE INSPECTOR Pulse 73 02/02/2020 12:57 PM METER AND SERVICE LINE INSPECTOR Temperature 36.6 C (97.9 F) 02/02/2020 12:57 PM METER AND SERVICE LINE INSPECTOR Respiratory Rate 18 02/02/2020 12:57 PM METER AND SERVICE LINE INSPECTOR Oxygen Saturation 98% 02/02/2020 12:57 PM METER AND SERVICE LINE INSPECTOR Inhaled Oxygen Concentration - - Weight 90.7 kg (200 lb) 02/02/2020 12:57 PM METER AND SERVICE LINE INSPECTOR Height 182.9 cm (6') 12/08/2019 12:49 PM CDT Body Mass Index 27.12 12/08/2019 12:49 PM CDT Plan of Treatment Health Maintenance Due Date Last Done Comments Colorectal Cancer Screening Colonoscopy ( Years) 1950 Hepatitis C 09/04/1969 Pneumococcal Vaccine: 50+ Years (1 of 1 - PCV) 09/04/2001 Zoster Vaccines (1 of 2) 09/04/2001 Annual Medicare Wellness Visit 09/04/2016 COVID-19 Vaccine (1 - 2024-2 6 season) 2024 Influenza Adult (#1) 2024 01/08/2019, 12/24/2018, 01/07/2018 RSV Immunization or 60+ Years (1 - 1-dose 75+ series) 09/04/2026 DTaP, Tdap and Td Vaccines ( 3 - Td or Tdap) 05/17/2029 05/17/2019, 11/28/2011, 03/26/2001 Hepatitis A Vaccines Aged Out No long er eligible based on patient's age to complete this topic Meningococcal B Vaccine Aged Out No l onger eligible based on patient's age to complete this topic Meningococcal Vaccine Aged Out No ludmila reymundo eligible based on patient's age to complete this topic RSV Immunizations Under 20 Months Aged Out No longer eligible b ased on patient's age to complete this topic Insurance MEDICARE [facility] Care Teams Vault Maker Relationship Specialty Start Date End Date None, Provider, PCP - General 12/08/19
--- OUTSIDE RECORDS SUMMARY | 2025-03-25 13:17 | XMS_ITS | Clinical Summary ---
Author Organization [facility] Tricia Dai Address [address] [place] [address] Care Team Providers Care Improvement Advisor Name Role Phone Dudley Moser DO Primary [...] Encounters Date Type Department Care Team Description 03/13/2025 Orders Only [facility] Oncology and Hematology - [place] [place] [address] Nilton Pittman MD 03/12/2025 2:45 PM BOLT THREADER Office Visit [facility] Oncology and Hematology [place] [place] [address] Nilton Pittman MD Reactive thrombocytosis [...] on file 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:55 AM BOLT THREADER Gender Identity Not on file Sexual Orientation Not on file Last Filed Vital Signs Vital Sign Reading Time Taken Comments Blood Pressure 143/82 03/12/2025 2:39 PM BOLT THREADER Pulse 67 03/12/2025 2:31 PM BOLT THREADER Temperature 36.8 C (98.2 F) 03/12/2025 2:31 PM BOLT THREADER Respiratory Rate 15 03/12/2025 2:31 PM BOLT THREADER Oxygen Saturation 95% 03/12/2025 2:31 PM BOLT THREADER Inhaled Oxygen Concentration - - Weight 92.8 kg (204 lb 9.6 oz) 03/12/2025 2:31 P M BOLT THREADER Height 182.9 cm (6') 09/22/2021 11:43 AM CDT Body Mass Index 27.75 09/22/2021 11:43 AM CDT Plan of Treatment Upcoming Encounters Date Type Department Care Team (Late st Contact Info) Description 07/14/2025 2:00 PM CDT Office Visit [facility] Oncology and Hematology [place] [address] [place] [address] Nilton Pittman MD [address] [facility] [address] [place] [address] Health Maintenance Due Date Last [...] Procedure Name Priority Date/Time Associated Diagnosis Comments CBC WITH AUTODIFFERENTIAL Routine 2024 8:54 AM BOLT THREADER from Last 3 Months Results * CBC WITH AUTODIFFERENTIAL (03/12/2025 8:54 AM BOLT THREADER) Blood Nilton Pittman MD HEMATOLOGY ORDERABLES Final Res ult from Last 3 Months Insurance MEDICARE PART A AND B BCBS [facility]PP [facility] SUPP RANDA VERDUZCO [id number] Care Teams Improvement Advisor Relationship Specialty Start Date End Date Dudley Moser DO [address] [facility] [address] [place] [address] PCP - General Internal Medicine 07/18/21
[2025-03-25 13:50] LABS: Hematocrit 49.0 % (42.0-52.0); Hemoglobin 16.5 g/dL (14.0-18.0); Mean Corpuscular HGB Conc 33.7 g/dl (32-36); Mean Corpuscular Hemoglobin 34.7 pg (26-34); Mean Corpuscular Volume 103.2 fl (80-100); Platelet Count Result 516 k/mm3 (150-375); Red Blood Count 4.75 M/mm3 (4.6-6.20); White Blood Count 10.8 K/mm3 (4.5-10.0)
[2025-03-25 14:04] LABS: Albumin Level 4.0 g/dL (3.5-5.1); Anion Gap 6 mmol/L (4-12); Blood Urea Nitrogen 19 mg/dL (9-20); Calcium 9.1 mg/dL (8.4-10.2); Carbon Dioxide 26 mmol/L (22-30); Chloride 106 mmol/L (98-107); Estimated Glomerular Filt Rate 58; Glucose 109 mg/dL (65-110); Potassium 4.1 mmol/L (3.4-5.0); Sodium 138 mmol/L (137-145)
[2025-03-25 14:12] LABS: Total Protein Urine Random < 5 mg/dL; Ur Ttl Prot Creatinine Ratio < 0.03 mg/mg (0-0.20)
[2025-03-25 14:20] LABS: Parathyroid Intact 47.7 pg/mL (14.5-75.2)
== END 2025-03-25 13:15 | disposition home or self-care (01) ==
PROVIDERS: PCP Internal Medicine; Visit Provider Internal Medicine Nephrology
DX: D75.839 Thrombocytosis, unspecified (principal); N17.9 Acute kidney failure, unspecified
CPT/HCPCS: 36415; 80069; 82570; 83970; 84156; 85027